=== PATIENT | male | born 1955 | race Caucasian/White ===

== ENCOUNTER 2022-04-18 08:43 | Outpatient (REF) | payer MEDICARE, MEDICAID, SELFPAY ==
--- NOTE | ~2022-04-18 | CT_ITS ---
EXAMINATION: CT ABDOMEN AND PELVIS WITHOUT AND WITH CONTRAST CLINICAL INFORMATION: Hematuria. COMPARISON: None. TECHNIQUE: Multidetector volumetric imaging was performed of the abdomen and pelvis before and after the IV administration of 85 mL of Omnipaque 300 intravenous contrast. Sagittal and coronal reformatted images were obtained on the technologist's workstation. This CT examination was performed using dose optimization techniques as appropriate, variously including the following: *Automated exposure control *Adjustment of mA and/or kV according to patient size (this includes techniques or standardized protocols for targeted exams where dose is matched to indication/reason for exam; i.e. extremities or head) *Use of iterative reconstruction technique DLP: 874 mGy-cm. FINDINGS: LUNG BASES: There is plate-like atelectasis right lung base. LIVER, GALLBLADDER, AND BILIARY TREE: The liver is normal in size, shape, and diffuse hypoattenuation. There is a focal linear hypodensity right hepatic lobe extending caudate on sagittal image likely a dilated duct. No focal hepatic lesion or biliary ductal dilatation is present. The gallbladder is unremarkable with no evidence of radiopaque gallstones, gallbladder wall thickening, or obvious pericholecystic inflammatory changes. PANCREAS: Unremarkable SPLEEN: Unremarkable ADRENAL GLANDS: Unremarkable KIDNEYS AND URETERS: The kidneys are normal in size, shape, and No hydronephrosis, hydroureter, or calculi seen. No perinephric stranding. There is a 1 cm nodule right adrenal gland. Precontrast lesion measures 1.60 HU and on postcontrast exam measures 69 HU. The lesion extends into periureteral diverticulum The left adrenal gland is unremarkable. BLADDER: There is mass left bladder wall with thick wall calcification. Precontrast, this measures 36 Hounsfield units and postcontrast measures 62 HU. It measures 4.6 x 3.5 x 4.5 cm. The uterine and the diverticulum does not opacify likely obstructive from the tumor. Excreted urinary contrast is visualized in the bladder. The left distal ureter is at the inferior edge of the bladder mass but no obstruction or dilatation of distal ureter seen. GASTROINTESTINAL TRACT: There is scattered stool stool, gas seen in colon without distention. There are postsurgical changes ascending colon with anastomotic ileocolic segment showing minimal mural thickening but patent lumen. The rest of the colon and the small bowel loops are normal caliber. The stomach is nondistended. No free fluid or inflammatory process seen. ABDOMINAL WALL: No significant hernia is appreciated. LYMPH NODES: Normal. VASCULAR: Unremarkable. PELVIC VISCERA: No abnormal pelvic or inguinal lymph nodes seen. There is no free fluid. OSSEOUS STRUCTURES: There are degenerative disc changes with vacuum disc phenomena L5-S1 disc level with ventral spondylosis. CT/CT abdomen pelvis wo/w IV con IMPRESSION: 1. Left bladder wall mass with thick wall calcification. The left distal ureter is at the inferior edge of the bladder mass but no obstruction seen. There is left periureteral diverticulum with mass extending into the diverticulum and obstructing the diverticulum. 2. There is no abnormal pelvic or inguinal lymphadenopathy. 3. Postsurgical changes ascending colon with patent anastomotic segment. However, there is mild mural thickening. 4. Right adrenal enhancing nodule, suspicious. 5. Hepatic steatosis without focal lesion. Fleischner guidelines were followed.
[2022-04-18] MEDS: iohexoL 350 MG/ML 100 ML INFUS..BTL IV (09:40)
[2022-04-18 14:53] LABS: Creatinine POC 0.7 mg/dL (0.5-1.4); GFR POC > 60
== END 2022-04-18 08:44 | disposition home or self-care (01) ==
LOC: HO.CT 08:43
PROVIDERS: PCP Nurse Practitioner Family; Visit Provider Nurse Practitioner Family
DX: R31.9 Hematuria, unspecified (principal)
CPT/HCPCS: 74178; 82565; Q9967

== ENCOUNTER → 2022-04-26 10:05 | Outpatient (BNVA) | payer MEDICARE, SELFPAY | PROVIDERS: PCP Nurse Practitioner Family; Visit Provider Internal Medicine Endocrinology, Diabetes & Metabolism | DX: E27.8 Other specified disorders of adrenal gland (principal) | CPT/HCPCS: 99202 ==

== ENCOUNTER 2022-04-26 11:59 | Outpatient (REF) | payer MEDICARE, SELFPAY ==
[2022-04-27 21:38] LABS: DHEA Sulfate 198 mcg/dL (20-217)
[2022-05-01 12:13] LABS: Metanephrine, Free 86 pg/mL (<=57); Normetanephrines, Free 130 pg/mL (<=148); Total Metanephrine, Free 216 pg/mL (<=205)
== END 2022-04-26 12:00 | disposition home or self-care (01) ==
LOC: HO.10HDL 11:59
PROVIDERS: Visit Provider Internal Medicine Endocrinology, Diabetes & Metabolism
DX: E27.8 Other specified disorders of adrenal gland (principal)
CPT/HCPCS: 36415; 82627; 83835

== ENCOUNTER 2022-05-02 12:15 | Outpatient (REF) | payer MEDICARE, SELFPAY ==
[2022-05-02 14:42] LABS: Alanine Aminotransferase 46 U/L (0-40); Albumin Level 4.3 g/dL (3.5-5.0); Alkaline Phosphatase 74 U/L (39-117); Anion Gap 12 (12-20); Aspartate Amino Transferase 32 U/L (5-37); Bilirubin Total 1.4 mg/dL (0.0-1.0); Blood Urea Nitrogen 21 mg/dL (9-16); Calcium 9.2 mg/dL (8.4-10.2); Carbon Dioxide 23 mmol/L (22-29); Chloride 110 mmol/L (96-108); Estimated Glomerular Filt Rate > 60; Glucose Random 108 mg/dL (60-115); Potassium 4.7 mmol/L (3.3-5.1); Sodium 140 mmol/L (135-145); Total Protein 6.9 g/dL (6.5-8.0)
[2022-05-02 15:23] LABS: Cortisol Random 10.3 ug/dL
== END 2022-05-02 12:16 | disposition home or self-care (01) ==
LOC: HO.HMGCLDS 12:15
PROVIDERS: Absent Provider Internal Medicine Endocrinology, Diabetes & Metabolism; Visit Provider Nurse Practitioner Family
DX: I26.99 Other pulmonary embolism without acute cor pulmonale (principal); E27.8 Other specified disorders of adrenal gland; R31.9 Hematuria, unspecified
CPT/HCPCS: 36415; 80053; 82533

== ENCOUNTER 2022-05-03 08:20 | Outpatient (REF) | payer MEDICARE, SELFPAY ==
[2022-05-03 12:30] LABS: Cortisol Random 5.5 ug/dL
[2022-05-09 20:23] LABS: Dexamethasone 174 ng/dL
== END 2022-05-03 08:21 | disposition home or self-care (01) ==
LOC: HO.HMGCLDS 08:20
PROVIDERS: PCP Nurse Practitioner Family; Visit Provider Internal Medicine Endocrinology, Diabetes & Metabolism
DX: E27.8 Other specified disorders of adrenal gland (principal); Z79.899 Other long term (current) drug therapy
CPT/HCPCS: 36415; 80299; 82533

== ENCOUNTER 2022-05-04 08:45 | Outpatient (REF) | payer MEDICARE, SELFPAY ==
[2022-05-04 12:30] LABS: Total Volume 24 Hour Urine 2550 mL
[2022-05-04 12:31] LABS: Creatinine, 24Hr Urine 1.6 G/Day (1.0-2.0); Creatinine, mg/dL 62.34
[2022-05-15 07:08] LABS: Total Volume 24U 2550
[2022-05-15 07:09] LABS: Metanephrine, Free 24U 244
[2022-05-15 07:11] LABS: Normetanephrine, Free 24U 350
[2022-05-15 07:12] LABS: Total Metanephrine, Free 24U 594
== END 2022-05-04 08:46 | disposition home or self-care (01) ==
LOC: HO.HMGCLDS 08:45
PROVIDERS: PCP Nurse Practitioner Family; Visit Provider Internal Medicine Endocrinology, Diabetes & Metabolism
DX: E27.8 Other specified disorders of adrenal gland (principal)
CPT/HCPCS: 82570; 83835

== ENCOUNTER 2022-05-04 14:33 | Outpatient (REF) | payer MEDICARE, MEDICAID, SELFPAY ==
--- NOTE | ~2022-05-04 | CT_ITS ---
EXAMINATION: CT ANGIOGRAM OF THE CHEST WITH CONTRAST (CT PULMONARY ANGIOGRAM FOR PE) CLINICAL INFORMATION: Reason for Exam I26.99 - Other pulmonary embolism without acute cor pulmonale COMPARISON: No pertinent prior studies are available for comparison. TECHNIQUE: Prior to contrast administration, noncontrast localization images were obtained. Subsequently, multidetector volumetric imaging was performed from the thoracic inlet to below the diaphragms following the administration of 130 mL Omnipaque 350 intravenous contrast. No contrast reaction reported. Sagittal, coronal, and MIP oblique sagittal reformatted images were obtained on the CT workstation, uploaded to PACS, and reviewed. This CT examination was performed using dose optimization techniques as appropriate, variously including the following: *Automated exposure control *Adjustment of mA and/or kV according to patient size (this includes techniques or standardized protocols for targeted exams where dose is matched to indication/reason for exam; i.e. extremities or head) *Use of iterative reconstruction technique Note that the initial contrast bolus was considered suboptimal, resulting in a second IV injection for the CT angiography examination. DLP: Total exam dose-length product 464 mGy-cm FINDINGS: LUNGS AND PLEURA: Trachea and central airways are widely patent and normal in caliber. Bronchial cavanaugh are mildly diffusely thickened. Mild centrilobular and paraseptal emphysema. No evidence of any suspicious lung nodule, mass or pleural effusion. No pneumothorax. QUALITY OF STUDY/CONTRAST BOLUS: Satisfactory. CARDIOVASCULAR: The pulmonary arteries are normal in size. No embolic filling defects are identified within the main, lobar or segmental vessels. The heart size is normal. No pericardial effusion. No inward bowing of the interventricular septum. Mild atherosclerosis of the thoracic aorta without aneurysm or dissection. MEDIASTINUM/LOWER NECK: No mediastinal mass. The esophagus and thyroid gland are unremarkable. LYMPHATICS: No pathologic sized axillary, hilar or mediastinal lymph nodes. UPPER ABDOMEN: No contrast reflux into the inferior vena cava. No acute findings in the visualized upper abdomen. Mild nodular thickening of right adrenal gland, 1 cm transverse dimension (image 57, series 5), probably an adrenal adenoma. It has attenuation of 50 Hounsfield units on the contrast-enhanced images. If deemed appropriate, follow-up in one year with adrenal washout CT examination, and if stable after follow-up in one year, then no further follow-up imaging would be recommended. OSSEOUS STRUCTURES: Discectomy and anterior spinal fusion at C6-C7. No acute abnormalities in the degenerated thoracic spine. No suspicious bone lesions. CT/CT angio chest PE protocol IMPRESSION: * No evidence of pulmonary embolism. * Mild pulmonary emphysema. * Probable small adenoma of the right adrenal gland.
[2022-05-04] MEDS: iohexoL 350 MG/ML 100 ML INFUS..BTL 130 ML IV (15:58)
== END 2022-05-04 14:34 | disposition home or self-care (01) ==
LOC: HO.CT 14:33
PROVIDERS: PCP Nurse Practitioner Family; Visit Provider Nurse Practitioner Family
DX: I26.99 Other pulmonary embolism without acute cor pulmonale (principal); R31.9 Hematuria, unspecified; E27.8 Other specified disorders of adrenal gland
CPT/HCPCS: 71275; Q9967

== ENCOUNTER 2022-05-19 12:56 | Outpatient (REF) | payer MEDICARE, SELFPAY | END 2022-05-19 12:57 | disposition home or self-care (01) | LOC: HO.LAB 12:56 | PROVIDERS: PCP Nurse Practitioner Family; Visit Provider Internal Medicine Endocrinology, Diabetes & Metabolism | DX: Z13.89 Encounter for screening for other disorder (principal) ==

== ENCOUNTER 2022-05-20 09:26 | Outpatient (REF) | payer MEDICARE, SELFPAY ==
[2022-05-25 14:13] LABS: Adrenocorticotropic Hormone 23 pg/mL (6-50)
== END 2022-05-20 09:27 | disposition home or self-care (01) ==
LOC: HO.LAB 09:26
PROVIDERS: PCP Nurse Practitioner Family; Visit Provider Internal Medicine Endocrinology, Diabetes & Metabolism
DX: E27.8 Other specified disorders of adrenal gland (principal)
CPT/HCPCS: 36415; 82024; 82530

== ENCOUNTER → 2022-07-17 11:57 | Outpatient (BNVA) | payer MEDICARE, SELFPAY | PROVIDERS: PCP Nurse Practitioner Family; Referring Provider Nurse Practitioner Family; Visit Provider Nurse Practitioner Family | DX: Z12.11 Encounter for screening for malignant neoplasm of colon (principal); K58.2 Mixed irritable bowel syndrome | CPT/HCPCS: 99202 ==

== ENCOUNTER → 2022-07-26 11:09 | Outpatient (BNVA) | payer MEDICARE, MEDICAID, SELFPAY | PROVIDERS: PCP Nurse Practitioner Family; Visit Provider Internal Medicine Endocrinology, Diabetes & Metabolism | DX: E27.8 Other specified disorders of adrenal gland (principal) | CPT/HCPCS: 99212 ==

== ENCOUNTER 2022-08-07 16:24 | Outpatient (REF) | payer MEDICARE, MEDICAID, SELFPAY | END 2022-08-07 16:25 | disposition home or self-care (01) | LOC: HO.LAB 16:24 | PROVIDERS: PCP Nurse Practitioner Family; Visit Provider Internal Medicine Endocrinology, Diabetes & Metabolism | DX: Z13.89 Encounter for screening for other disorder (principal) ==

== ENCOUNTER 2022-08-08 | Outpatient (REF) | payer MEDICARE, MEDICAID, SELFPAY ==
[2022-08-20 17:08] LABS: Saliva Cortisol 0.05 mcg/dL
== END 2022-08-08 00:01 | disposition home or self-care (01) ==
LOC: HO.LNP
PROVIDERS: Visit Provider Internal Medicine Endocrinology, Diabetes & Metabolism
DX: E27.8 Other specified disorders of adrenal gland (principal)
CPT/HCPCS: 82530

== ENCOUNTER 2022-08-09 10:00 | Outpatient (REF) | payer MEDICARE, MEDICAID, SELFPAY ==
--- NOTE | ~2022-08-09 | CT_ITS ---
EXAMINATION: CT ABDOMEN WITHOUT AND WITH CONTRAST CLINICAL INFORMATION: Other specified disorders of adrenal gland. Please perform with adrenal protocol washout. COMPARISON: Previous chest CTA and abdominal and pelvic CT April 2022 TECHNIQUE: Contiguous axial thin section helical images of the abdomen were performed before and after the administration of oral contrast and 85 mL of Omnipaque 350 intravenous contrast. The data set was reformatted in the coronal and sagittal planes and reviewed on an independent workstation. This CT examination was performed using dose optimization techniques as appropriate, variously including the following: *Automated exposure control *Adjustment of mA and/or kV according to patient size (this includes techniques or standardized protocols for targeted exams where dose is matched to indication/reason for exam; i.e. extremities or head) *Use of iterative reconstruction technique DLP: 459 mGy-cm FINDINGS: LUNG BASES: New clustered right middle lobe nodules largest measuring 3 mm axial image 1 series 7. Appearance is suggestive of tree-in-bud appearance or airways. LIVER, GALLBLADDER, AND BILIARY TREE: Fatty infiltration of the liver. Stable linear branching low attenuation in the right lobe of the liver again questionable for focal intrahepatic biliary duct dilatation. The liver is otherwise normal. The gallbladder is normal. PANCREAS: Normal SPLEEN: Normal. Small splenule. ADRENAL GLANDS AND KIDNEYS: There is a 1 x 1.8 cm right adrenal nodule. Hounsfield units precontrast measure 10. Hounsfield units immediately post contrast measure 95. Delayed Hounsfield units following IV contrast measure 34. Percentage and relative washout is 64%. Percentage enhancement washout is 80%. This is suggestive of a adrenal adenoma. There is slight nodular thickening of the posterior limb of the left adrenal gland. Small bilateral renal stones. The kidneys are otherwise normal. BOWEL LOOPS: Postsurgical changes from right hemicolectomy. LYMPH NODES: There are small cardiophrenic angle lymph nodes that are stable. Small stable precaval and periportal lymph nodes.. No enlarged lymph nodes. VASCULAR: Unremarkable. BONES: Mild degenerative changes of the spine. CT/CT abdomen wo/w IV con IMPRESSION: 1 x 1.8 cm right adrenal nodule. Washout characteristics are suggestive of a benign adenoma. Slight nodular thickening of the posterior limb of the left adrenal gland. Other stable abdominal findings as described above. New clustered right middle lobe nodules suggestive of tree-in-bud appearance or airways disease. Fleischner guidelines were followed.
[2022-08-09] MEDS: iohexoL 350 MG/ML 100 ML INFUS..BTL IV (11:01)
[2022-08-09 11:25] LABS: MANUAL DIFF FLAG NO
[2022-08-09 12:15] LABS: Basophils Absolute Auto 0.1 X10*3/uL (0.0-0.2); Basophils Percent Auto 0.9 % (0-2); Eosinophils Absolute Auto 0.2 X10*3/uL (0.0-0.4); Hematocrit 48.2 % (42.0-52.0); Imm Gran Abs Auto 0.04 X10*3/uL (0.00-0.03); Imm Gran Pct Auto 0.7 % (0.0-0.4); Lymphocytes Absolute Auto 1.6 X10*3/uL (1.2-4.9); Lymphocytes Percent Auto 28.9 % (20-40); Mean Corpuscular HGB Conc 33.2 g/dl (31.0-36.0); Mean Corpuscular Volume 90.4 fL (80.0-98.0); Mean Platelet Volume 9.4 fL (9.4-12.4); Monocytes Absolute Auto 0.5 X10*3/uL (0.1-1.2); Monocytes Percent Auto 8.3 % (2-11); Neutrophils Absolute Auto 3.3 x10*3/uL (2.0-8.3); Neutrophils Percent Auto 58.2 % (45-73); Platelet Count 183 X10*3/uL (160-400); Red Blood Count 5.33 X10*6/uL (4.60-5.80); Red Cell Distribution Width 13.4 % (11.0-16.0); White Blood Count 5.7 X10*3/uL (4.8-10.8)
[2022-08-09 12:23] LABS: GFR POC 60
[2022-08-09 12:33] LABS: Creatinine, mg/dL 128.48
[2022-08-09 12:51] LABS: Alanine Aminotransferase 63 U/L (0-40); Albumin Level 4.2 g/dL (3.5-5.0); Alkaline Phosphatase 70 U/L (39-117); Anion Gap 12 (12-20); Aspartate Amino Transferase 40 U/L (5-37); Blood Urea Nitrogen 16 mg/dL (9-16); Calcium 9.1 mg/dL (8.4-10.2); Carbon Dioxide 26 mmol/L (22-29); Chloride 107 mmol/L (96-108); Cholesterol 91 mg/dL; Estimated Glomerular Filt Rate > 60; Glucose Fasting 85 mg/dL (60-99); HDL Cholesterol 40 mg/dL; LDL Cholesterol Calculated 43 mg/dl; Potassium 4.5 mmol/L (3.3-5.1); Sodium 140 mmol/L (135-145); Total Protein 6.5 g/dL (6.5-8.0); Triglycerides 43 mg/dL
[2022-08-09 12:56] LABS: Creatinine, 24Hr Urine 1.5 G/Day (1.0-2.0); Total Volume 24 Hour Urine 1175 mL
[2022-08-09 13:08] LABS: Prostate Specific Antigen Scr 0.26 ng/mL (<0.05-4.0); TSH reflex Free T4 1.73 uIU/mL (0.32-4.0)
[2022-08-09 13:14] LABS: Appearance Urine Clear; Color Urine Yellow; Glucose Urine UA Negative (Negative); Leukocyte Esterase Urine Negative (Negative); Nitrite Urine Negative (Negative); Specific Gravity - Urine >= 1.030 (1.005-1.025); UMIC TRIGGER UACC YES; Urine Blood Small (1+) (Negative); Urine Ketones Negative (Negative); Urine Protein Negative (Neg-Trace)
[2022-08-09 13:27] LABS: Bacteria Urine None Seen (None Seen); Hyaline Casts Urine 0-2 /LPF (0-2); Squamous Epithelial Cell Urine 0-2 /HPF (0-2); WBC Urine 0-5 /HPF (0-5)
[2022-08-18 08:34] LABS: Cortisol Free, 24 Hr Urine 40.8 mcg/24 h (4.0-50.0); Creatinine, 24 Hr Urine 1.47 g/24 h (0.50-2.15); Total Volume, 24 Hr Urine 1175 mL
== END 2022-08-09 10:01 | disposition home or self-care (01) ==
LOC: HO.CT 10:00
PROVIDERS: PCP Nurse Practitioner Family; Visit Provider Internal Medicine Endocrinology, Diabetes & Metabolism
DX: Z00.00 Encounter for general adult medical examination without abnormal findings (principal); Z12.5 Encounter for screening for malignant neoplasm of prostate; E27.8 Other specified disorders of adrenal gland; E78.5 Hyperlipidemia, unspecified; R53.83 Other fatigue
CPT/HCPCS: 36415; 74170; 80053; 80061; 81001; 81003; 82530; 82565; 82570; 84153; 84443; 85025; Q9967

== ENCOUNTER → 2022-08-22 09:42 | Outpatient (BNVA) | payer MEDICARE, MEDICAID, SELFPAY | PROVIDERS: PCP Nurse Practitioner Family; Visit Provider Nurse Practitioner Family | DX: Z12.11 Encounter for screening for malignant neoplasm of colon (principal) | CPT/HCPCS: 99212 ==

== ENCOUNTER 2022-08-22 11:17 | Outpatient (REF) | payer MEDICARE, MEDICAID, SELFPAY ==
--- NOTE | ~2022-08-22 | XR_ITS ---
EXAMINATION: XR CHEST CLINICAL INFORMATION: Shortness of breath COMPARISON: None available. TECHNIQUE: 2 views of the chest were obtained. FINDINGS: No significant abnormality is noted involving the heart, lungs, mediastinum, bony thorax or soft tissues. XR/XR chest 2V IMPRESSION: Unremarkable chest examination.
== END 2022-08-22 11:18 | disposition home or self-care (01) ==
LOC: HO.HMGCX 11:17
PROVIDERS: PCP Nurse Practitioner Family; Visit Provider Nurse Practitioner Family
DX: Z01.818 Encounter for other preprocedural examination (principal); R06.02 Shortness of breath
CPT/HCPCS: 71046

== ENCOUNTER 2022-08-31 06:54 | Day surgery (SDC) | payer MEDICARE, MEDICAID, SELFPAY ==
[2022-08-29 15:48] VITALS: BMI 29.6
--- NOTE | 2022-08-30 12:36 | P.CONAN_ITS ---
HPI - Anesthesia Eval Consult details Narrative: 67yo M for Colonoscopy PMFSH Active Problems Active Problems: All Active Problems (Updated 08/20/22 @ 17:47 by Isaiah Trevino, [facility]) Shortness of breath (Acute) Elevated bilirubin (Acute) Dermatitis (Acute) Physical exam (Acute) Screening for colon cancer (Acute) History of rectal polypectomy (Acute) Mass of right adrenal gland (Acute) Hematuria (Acute) Pulmonary embolism (Acute) Past Medical History Medical History (Updated 08/30/22 @ 12:37 by Lety Dorsey NP) Mass of right adrenal gland Pulmonary embolism Family History Family History Mother Dementia Father Throat cancer Surgical History Surgical History H/O transurethral resection of bladder tumor (TURBT) History of esophagogastroduodenoscopy (EGD) History of intestinal surgery History of rectal polypectomy History of surgery of head Hx of appendectomy Hx of colonoscopy Hx of fusion of cervical spine Hx of hernia repair Hx of shoulder surgery Social History Social History Alcohol intake: current Alcohol intake frequency: other Alcohol type: beer and wine Patient Tobacco Use Status: Former Tobacco user Tobacco use type: Cigarette Years Smoked: > 17 yrs Substance Use Type: Marijuana Meds Allergies Allergy/AdvReac Type Severity Reaction Status Date / Time codeine Allergy Severe Unknown Verified 08/22/22 09:47 morphine Allergy sweats, Verified 08/22/22 09:47 vomiting Exam Exam Date and Time: August 30, 2022 1236 Height,Weight and Vital Signs: Height 5 ft 9 in Weight 90.999 kg Pertinent Lab Results Pertinent Lab Results: Laboratory Tests 08/09/22 08/09/22 11:24 11:24 WBC 5.7 Hgb 16.0 Hct 48.2 Plt Count 183 Sodium 140 Potassium 4.5 Chloride 107 Carbon Dioxide 26 BUN 16 Creatinine 1.09 Assessment and Plan Assessment Anesthesia Assessment: Chart Reviewed
[2022-08-31 07:55] VITALS: BMI 29.5
[2022-08-31 07:57] VITALS: BP 129/81; PULSE 82; RESP 16; TEMP 36.3; O2SAT 100
[2022-08-31] MEDS: Lactated Ringers 1,000 ML 100 ML IVCONT (08:16)
--- NOTE | 2022-08-31 08:22 | P.CONAN_ITS ---
[facility] Active Problems Active Problems: All Active Problems (Updated 08/30/22 @ 12:37 by Lety Dorsey NP) Hematuria (Acute) Screening for colon cancer (Acute) Physical exam (Acute) Dermatitis (Acute) Elevated bilirubin (Acute) Shortness of breath (Acute) History of rectal polypectomy (Acute) Past Medical History Medical History Mass of right adrenal gland Pulmonary embolism Family History Family History Mother Dementia Father Throat cancer Family history of problems with anesthesia: No Surgical History Surgical History H/O transurethral resection of bladder tumor (TURBT) History of esophagogastroduodenoscopy (EGD) History of intestinal surgery History of rectal polypectomy History of surgery of head Hx of appendectomy Hx of colonoscopy Hx of fusion of cervical spine Hx of hernia repair Hx of shoulder surgery History of Problems with Anesthesia: No Social History Social History Alcohol intake: current Alcohol intake frequency: former alcohol drinker Alcohol type: beer and wine Patient Tobacco Use Status: Former Tobacco user Quit Date: 2005 Tobacco use type: Cigarette Years Smoked: > 17 yrs Smoked in Last 30 Days: No Use of substances other than those prescribed or required for medical reasons: Yes Substance Use Type: Marijuana Substance Use Frequency: Occasionally Are you DNR?: No Advance Directives: No Advance Directives Information Provided: Yes Meds Allergies Allergy/AdvReac Type Severity Reaction Status Date / Time codeine Allergy Severe COLD SWEATS Verified 08/31/22 07:53 morphine Allergy Severe COLD SWEATS Verified 08/31/22 07:53 Active Medications: Current Medications Lactated Ringer's (Lr) 1,000 mls @ 100 mls/hr IVCONT .Q10H TEJAS Last Admin: 08/31/22 08:16 Dose: 100 mls/hr Ondansetron HCl (Ondansetron Hcl 4 Mg/2 Ml Vial) 4 mg IVPUSH ONCE PRN PRN Reason: Nausea and Vomiting Home Medications Medication Instructions Recorded Confirmed Last Taken Type aripiprazole 5 mg tablet 5 mg PO DAILY 08/31/22 08/31/22 Unknown History escitalopram oxalate 5 mg tablet 5 mg PO DAILY 08/31/22 08/31/22 Unknown History Exam Exam Date and Time: August 31, 2022 0822 Height,Weight and Vital Signs: Height 5 ft 9 in Weight 90.718 kg Last Vital Signs Temp 97.4 F 08/31/22 07:57 Pulse 82 08/31/22 07:57 Resp 16 08/31/22 07:57 BP 129/81 08/31/22 07:57 Pulse Ox 100 08/31/22 07:57 O2 Del Method Room Air 08/31/22 07:57 Airway Mallampati Class: I TM Dist: >3cm Neck ROM: Full Denture: Upper and Lower Heart: rrr Lungs: clear Assessment and Plan Final Anesthetic Review Family History of Problems with Anesthesia: No History of Problems with Anesthesia: No NPO: Yes ASA Class: III Final Preanesthetic Review: No Changes in Pt Med Stat, Meds/Allgs Chart Reviewed, Consent Obtained/Reviewed and Anes Risks/Benef Reviewed Patient Risk: Intermediate Procedure Risk: Low Anesthetic Plan Anesthetic Plan: MAC: Disposition: Standard PACU
--- NOTE | 2022-08-31 09:01 | MHC.SHP ---
Pre-Procedural Eval Section A Date of Service: 08/31/22 Section B Chief Complaint: Screening Relevant Family History (Specify if Yes): No Relevant Social History: Other (specify) (THC) Present Medications: see Short Stay Collaborative assessment Medical History: Significant History (Mass of right adrenal gland Pulmonary embolism) History of Previous Operations: Relevant previous surgery/procedure and date(s) (H/O transurethral resection of bladder tumor (TURBT) History of esophagogastroduodenoscopy (EGD) History of intestinal surgery History of rectal polypectomy History of surgery of head Hx of appendectomy Hx of colonoscopy Hx of fusion of cervical spine Hx of hernia repair Hx of shoulder surgery) Allergies: Allergies Allergy/AdvReac Type Severity Reaction Status Date / Time codeine Allergy Severe COLD SWEATS Verified 08/31/22 07:53 morphine Allergy Severe COLD SWEATS Verified 08/31/22 07:53 Review of Systems Sugical H&P ROS: Negative: Constitution, Cardiovascular, Respiratory, Neurological, Psychiatric, Hem-Onc, Allergic/Immunologic, Gastrointestinal, Genitourinary, Musculoskeletal, Integumentary, Endocrine and Eyes/Ears/Nose/Throat Exam Surgical H&P Exam: Normal: HEENT, Normal: Heart, Normal: Lungs, Normal: Extremities, Normal: Abdomen, Normal: Skin and Normal: Neurological Plan Diagnosis/Plan: Unchanged I have reviewed the history and physical and performed a pertinent physical examination on my patient. No changes have occurred unless specified. Time Spent With Patient Time: Total time managing care of this patient today ____ minutes.
--- NOTE | 2022-08-31 09:03 | P.OP_ITS ---
Operative Note Operative Note Date of Service: 08/31/22 Narrative: Operative Information Procedure Description: Colonoscopy Indication: screening Anesthesia: MAC COLONOSCOPY Instrument: Olympus variable stiffness pediatric scope 190L Colonoscopy Monitoring: Vital signs and clinical assessment, continuous EKG monitoring, Pulse oximetry, Carbon Dioxide monitoring and blood pressure monitoring were done throughout the procedure. Colon withdrawal time was 14 minutes. Procedure: The patient was placed in the left lateral decubitis position and pre-procedure medications were administered. After a digital rectal examination of the ano-rectum, the video colonoscope was inserted into the rectum and advanced through the colon to the ileocolonic anastomosis The colonoscope was slowly withdrawn in a retrograde panoramic fashion and the colon mucosa was carefully examined including a retroflexed view of the rectum. Findings and interventions are described below. Procedure Difficulty: easy Findings: ileo-colonic anasotmosis noted. Ascending Colon: x1 sessile polyp 9-10 mm removed with cold snare and 5-7 mm removed with cold snare Transverse Colon -normal Descending Colon: 10 mm sessile polyp removed with cold snare Sigmoid Colon: normal Rectum: Retroflexion with small internal hemorrhoids, grade I, x 2 sessile polyps 4-6 mm removed with cold forceps Anorectum - normal Colon preparation: Montgomery Bowel Preparation Scale Right colon; 2 Transverse colon: 2 Left colon; 2 (0 = Unprepared colon segment with mucosa not seen due to solid stool that cannot be cleared. 1 = Portion of mucosa of the colon segment seen, but other areas of the colon segment not well seen due to staining, residual stool and/or opaque liquid. 2 = Minor amount of residual staining, small fragments of stool and/or opaque liquid, but mucosa of colon segment seen well. 3 = Entire mucosa of colon segment seen well with no residual staining, small fragments of stool or opaque liquid) Impression and Post Procedure Diagnosis: polyps internal hemorrhoids Plan: High fiber diet leaflet Avoid straining at stool, epsom salts and sitz bath, anusol supps or cream Repeat Colonoscopy in 2-3 years due to polyps or earlier if clinically indicated Above findings were reviewed with the patient and relevant handouts were provided if indicated.
[2022-08-31 09:43] VITALS: BP 95/61; PULSE 64; RESP 20; TEMP 36.3; O2SAT 94
[2022-08-31 09:58] VITALS: BP 107/78; PULSE 65; RESP 16; TEMP 36.6; O2SAT 99
== END 2022-08-31 10:30 | disposition home or self-care (01) ==
PROVIDERS: PCP Nurse Practitioner Family; Visit Provider Internal Medicine Gastroenterology
PROC: 0DJD8ZZ Inspection of Lower Intestinal Tract, Via Natural or Artificial Opening Endoscopic (ICD-10-PCS; CPT 45378; principal; 2022-08-31 09:00)
DX: Z12.11 Encounter for screening for malignant neoplasm of colon (principal); Z86.010 Personal history of colon polyps; D12.2 Benign neoplasm of ascending colon; D12.4 Benign neoplasm of descending colon; K62.1 Rectal polyp; K64.0 First degree hemorrhoids; Z98.0 Intestinal bypass and anastomosis status; Z86.711 Personal history of pulmonary embolism; Z98.890 Other specified postprocedural states; Z79.899 Other long term (current) drug therapy; Z79.51 Long term (current) use of inhaled steroids; Z88.8 Allergy status to other drugs, medicaments and biological substances; F12.90 Cannabis use, unspecified, uncomplicated; Z87.891 Personal history of nicotine dependence
CPT/HCPCS: 45385; 45380; 88305

== ENCOUNTER → 2022-09-25 13:19 | Outpatient (BNVA) | payer MEDICARE, SELFPAY | PROVIDERS: PCP Nurse Practitioner Family; Visit Provider Nurse Practitioner Family | DX: D36.9 Benign neoplasm, unspecified site (principal); R14.0 Abdominal distension (gaseous) | CPT/HCPCS: 99212 ==

== ENCOUNTER 2022-10-27 07:26 | Outpatient (REF) | payer MEDICARE, SELFPAY ==
--- NOTE | ~2022-10-27 | CT_ITS ---
EXAMINATION: CT CHEST WITHOUT CONTRAST CLINICAL INFORMATION: Follow-up new pulmonary nodule seen on abdominal pelvic CT scan COMPARISON: Previous chest CT April 2022, chest x-ray August [address] July 2022 TECHNIQUE: Multidetector volumetric CT imaging of the chest was done. Axial MIP volume rendering provided. Sagittal and coronal reformatted images were obtained. This CT examination was performed using dose optimization techniques as appropriate, variously including the following: *Automated exposure control *Adjustment of mA and/or kV according to patient size (this includes techniques or standardized protocols for targeted exams where dose is matched to indication/reason for exam; i.e. extremities or head) *Use of iterative reconstruction technique DLP: 187 mGy-cm FINDINGS: LUNGS: Mild paraseptal emphysema. Clustered new small 1 to 2 mm peribronchial I lateral upper lobe nodules and bronchial wall thickening, right greater than left. Increasing clustered peribronchial right middle lobe nodules. Largest nodule measures 7 x 13 mm axial image 342 series 5. Increasing subsegmental atelectasis in the lingula axial image 332 series 5. MEDIASTINUM: The visualized thyroid gland is normal. There are small mediastinal and bilateral hilar lymph nodes that are stable. No enlarged lymph nodes. Normal heart size. No pericardial effusion. Small right cardiophrenic angle or anterior diaphragmatic lymph nodes similar to previous exam. CORONARY ARTERY CALCIFICATION: None visualized on this study. PLEURA: There is no pleural effusion. No pleural mass or thickening. AXILLA: No lymphadenopathy. UPPER ABDOMEN: Fatty liver OSSEOUS STRUCTURES: Degenerative changes of the spine. CT/CT chest wo IV con IMPRESSION: Increasing clustered peribronchial nodules greatest in the right middle lobe. Largest pulmonary nodule measures 7 x 13 mm. This probably represents an infectious or inflammatory process. Short-term chest CT follow-up in several months following antibiotic treatment recommended. If finding persists on follow-up chest CT, PET/CT scan or tissue sampling would be recommended. Mild emphysema. Fleischner guidelines were followed.
== END 2022-10-27 07:27 | disposition home or self-care (01) ==
LOC: HO.CT 07:26
PROVIDERS: Visit Provider Nurse Practitioner Family
DX: R91.8 Other nonspecific abnormal finding of lung field (principal)
CPT/HCPCS: 71250

== ENCOUNTER 2022-12-04 08:19 | Outpatient (AMB) | payer MEDICARE, SELFPAY ==
--- NOTE | 2022-12-04 08:31 | A.OFFPC_ITS ---
Vital Signs 12/04/22 08:32 Height 5 ft 9 in Weight 207 lb 8 oz BMI 30.6 BP 120/78 Blood Pressure Location Lt brachial Position Sitting Pulse 74 Pulse Source Pulse Oximeter Pulse Oximetry (%) 96 Oxygen Delivery Method Room Air Intake Visit Reasons: 6 month follow up Allergies codeine Allergy (Severe, Verified 12/04/22 08:34) COLD SWEATS morphine Allergy (Severe, Verified 12/04/22 08:34) COLD SWEATS Tobacco use date assessed: 12/04/22 Fall risk assessment: No Falls in past year Last assessed Fall Risk: 12/04/22 Dental Screening Dental Screen Date: 12/04/22 Did you have a dental visit in the last 12 months?: No Did you have a dental problem in the last 6 months where you did not have access to dental care?: No Was dental information given to patient?: No HPI 6 month follow up HPI Details Hx of bladder cancer. Pt is following up with urology. Will order labs. Denies fever, chills, and hematuria. Pt is also following up with thoracic surgery. [facility] Medical History Mass of right adrenal gland Pulmonary embolism Tubular adenoma Surgical History H/O transurethral resection of bladder tumor (TURBT) History of esophagogastroduodenoscopy (EGD) History of intestinal surgery History of rectal polypectomy History of surgery of head Hx of appendectomy Hx of colonoscopy Hx of fusion of cervical spine Hx of hernia repair Hx of shoulder surgery Family History Mother Dementia Father Throat cancer Social History Housing: Apartment Alcohol intake: current Alcohol intake frequency: former alcohol drinker Alcohol type: beer and wine Patient Tobacco Use Status: Former Tobacco user Quit Date: 2005 Tobacco use type: Cigarette Years Smoked: > 17 yrs e-Cigarette/Vaping Use: Never Used Substance Use Type: Marijuana Current occupational status: retired Cognitive needs: No Hearing needs: No Vision needs: No Questionnaire Thrive Questionnaire Date Thrive assessed: 06/07/22 JUNIOR-7 AMB Questionnaire JUNIOR-7 Date JUNIOR - 7 assessed: 06/07/22 Source: Developed by Drs. Zhen Taylor, Precious Pate, Ruddy Metcalf and colleagues, with an educational nikkie from [employer]. Review of Systems Const Reports as per HPI Physical exam (Primary Care) Vital Signs: Last Vital Signs Pulse 74 12/04/22 08:32 BP 120/78 12/04/22 08:32 Pulse Ox 96 12/04/22 08:32 Oxygen Delivery Method Room Air 12/04/22 08:32 BMI result Body Mass Index 30.6 Tobacco/Smoking Status: Tobacco use Status Tobacco use date assessed 12/04/22 12/04/22 08:38 Patient Tobacco Use Status Former Tobacco user 12/04/22 08:38 Tobacco use type Cigarette 12/04/22 08:38 e-Cigarette/Vaping Use Never Used 12/04/22 08:38 Thrive Assessment: Date of Thrive Assessment Date Thrive assessed 06/07/22 12/04/22 08:38 Const General: cooperative Orientation/consciousness: patient oriented x3 Neuro General: patient oriented x3 Psych Appearance: grossly normal Mental Status: mental status grossly normal Speech and movement: Normal speech and movement present Affect: normal affect Attitude: cooperative Thought process: Normal thought process present Thought content: Normal thought content present Insight: Good insight present (Psych) Judgement: Good judgement present (Psych) Assessment and Plan Assessment & Plan (1) Bladder cancer: Code(s): C67.9 - Malignant neoplasm of bladder, unspecified Plan: Labs ordered, sees urology Plan The patient agreed to the use of a nuclear medicine medical director for this encounter. Scribed for JASWINDER Wood- by Arabella Miles nuclear medicine medical director, on 12/04/2022 at 08:45 EST. Orders: Orders Comprehensive [place]. Panel Fast Today C67.9 - Malignant neoplasm of bladder, unspecified Lipid Panel Today C67.9 - Malignant neoplasm of bladder, unspecified TSH reflex Free T4 Today C67.9 - Malignant neoplasm of bladder, unspecified Complete Blood Count Auto Diff Today C67.9 - Malignant neoplasm of bladder, unspecified UA CC w/rflx Micro + Cult Today C67.9 - Malignant neoplasm of bladder, unspecified Coding Level of Care Code Est Pt Level 3 (70013) Diagnoses Bladder cancer C67.9
[2022-12-04 08:32] VITALS: BP 120/78; PULSE 74; O2SAT 96; BMI 30.6
== END 2022-12-04 09:13 | disposition home or self-care (01) ==
PROVIDERS: PCP Nurse Practitioner Family; Visit Provider Nurse Practitioner Family
DX: C67.9 Malignant neoplasm of bladder, unspecified (principal)
CPT/HCPCS: 99213

== ENCOUNTER 2022-12-08 10:12 | Outpatient (AMB) | payer MEDICARE, SELFPAY ==
--- NOTE | 2022-12-08 10:32 | MHC.OFFVIS ---
Intake Vital Signs 12/08/22 10:41 Height 5 ft 9 in Weight 205 lb 0.478 oz BMI 30.3 BP 130/70 Blood Pressure Location Lt brachial Position Sitting Pulse 62 Pulse Oximetry (%) 97 Intake Visit Reasons: Abnormal CT scan Allergies codeine Allergy (Severe, Verified 12/08/22 10:34) COLD SWEATS morphine Allergy (Severe, Verified 12/08/22 10:34) COLD SWEATS Medication List - Last Reconciled 12/08/22 by Cirilo Mcmahon MD aripiprazole 5 mg PO DAILY escitalopram oxalate 5 mg PO DAILY fluticasone propionate 50 mcg/actuation 2 sprays intranasal DAILY omeprazole 20 mg PO DAILY simethicone 125 mg PO BID-QID PRN HPI Abnormal CT scan HPI Details 67-year-old male former smoker quit in 2005 but smoked 2 packs per day starting at age 11 up until that point who had a CT scan done for his kidneys and on the upper cuts there was a nodule noted on the right long so this quite appropriately was carried through with a noncontrast chest CT scan done on 10/27/2022. This was reviewed interpreted by me directly and shows a irregular shaped pulmonary nodule or cluster of pulmonary nodules in the right middle lobe. There is no lymphadenopathy no pleural fluid. Looking back he does also have a CTA of the chest on 05/04/2022 which shows no nodules at all. He reports feeling generally good health denies unintentional weight loss decreased appetite fevers chills or soaking sweats. He denied chest pain cough or hemoptysis. Does report some shortness of breath with activity. He does report reflux and frequent burping. He denies any new neurologic symptoms. Other than above, 12 point review of systems was done and documented separately in the office chart with detailed social and family history. [facility] Medical History (Updated 12/04/22 @ 15:42 by Joanna Dodge PA-C) History of pulmonary embolism (~02/2022) Mass of right adrenal gland Personal history of nicotine dependence Tubular adenoma of colon Surgical History (Updated 12/04/22 @ 15:42 by Joanna Dodge PA-C) History of appendectomy History of colon surgery History of colonoscopy History of esophagogastroduodenoscopy (EGD) History of fusion of cervical spine History of hernia repair History of rectal polypectomy History of shoulder surgery History of surgery of head History of transurethral resection of bladder tumor (TURBT) Family History Mother Dementia Father Throat cancer Social History Housing: Apartment Alcohol intake: current Alcohol intake frequency: former alcohol drinker Alcohol type: beer and wine Patient Tobacco Use Status: Former Tobacco user Quit Date: 2005 Tobacco use type: Cigarette Years Smoked: > 17 yrs e-Cigarette/Vaping Use: Never Used Substance Use Type: Marijuana Current occupational status: retired Cognitive needs: No Hearing needs: No Vision needs: No Physical Exam Vital Signs: Last Vital Signs Pulse 62 12/08/22 10:41 BP 130/70 12/08/22 10:41 Pulse Ox 97 12/08/22 10:41 BMI result Body Mass Index 30.3 General: No acute distress HEENT: Moist mucous membranes, normocephalic, pupils equal round and reactive to light. Neck: No thyromegaly, supple, no JVD Lymph: No cervical, supraclavicular, or other lymphadenopathy Chest: No chest wall abnormalities or deformities Heart: Regular rate and rhythm Lungs: Clear to auscultation bilaterally Abdomen: Soft, nontender, normal bowel sounds Extremities: No edema, cyanosis, or clubbing. Full range of motion Neuro: Grossly intact, alert and oriented x3, and nonfocal Skin: Warm and dry no rashes Affect: Normal Assessment & Plan Assessment & Plan (1) Pulmonary nodules: Code(s): R91.8 - Other nonspecific abnormal finding of lung field Plan: 67-year-old man former smoker with a cluster of pulmonary nodules in the right middle lobe found incidentally on a CT scan. I did spend some time explaining the CT scan to him and his fiancee who is with him today as described above. I also discussed pulmonary nodules in general and how their size, shape, and globe changer time affect her level of suspicion for malignancy. This does have an inflammatory type is shape to it and given that there was nothing there on previous CT scan just about 7 months ago I think this is less likely to be a malignancy. I did discuss options of continued observation versus needle biopsy versus surgery but I think the most reasonable option is for continued observation with a 3 month follow-up CT scan of the chest. As he has no signs of infection at the moment I do not think it is necessary to start any antibiotics at this time. All questions were answered. Orders: Orders CT chest wo IV con 3 Months R91.8 - Other nonspecific abnormal finding of lung field Coding Level of Care Code New Pt Level 4 (66195) Diagnoses Pulmonary nodules R91.8
[2022-12-08 10:41] VITALS: BP 130/70; PULSE 62; O2SAT 97; BMI 30.3
== END 2022-12-08 11:03 | disposition home or self-care (01) ==
PROVIDERS: PCP Nurse Practitioner Family; Visit Provider Surgery
DX: R91.8 Other nonspecific abnormal finding of lung field (principal)

== ENCOUNTER → 2022-12-08 10:12 | Outpatient (BNVA) | payer MEDICARE, SELFPAY | PROVIDERS: PCP Nurse Practitioner Family; Visit Provider Surgery | DX: R91.8 Other nonspecific abnormal finding of lung field (principal); Z87.891 Personal history of nicotine dependence | CPT/HCPCS: 99202 ==

== ENCOUNTER 2022-12-27 15:32 | Outpatient (AMB) | payer MEDICARE, SELFPAY ==
--- NOTE | 2022-12-27 15:40 | A.OFFPC_ITS ---
Vital Signs 12/27/22 15:41 Height 5 ft 9 in Weight 208 lb BMI 30.7 BP 130/84 Blood Pressure Location Lt brachial Position Sitting Pulse 77 Pulse Source Pulse Oximeter Pulse Oximetry (%) 96 Oxygen Delivery Method Room Air Intake Visit Reasons: Neck problem Intake Note: pt is here for neck pain that started about 3-4 days ago pt says by the end of the day he can not lift his arm over his head Allergies codeine Allergy (Severe, Verified 12/27/22 15:44) COLD SWEATS morphine Allergy (Severe, Verified 12/27/22 15:44) COLD SWEATS Medication List - Last Reconciled 12/27/22 by JASWINDER Rosenthal-IMER aripiprazole 5 mg PO DAILY escitalopram oxalate 5 mg PO DAILY fluticasone propionate 50 mcg/actuation 2 sprays intranasal DAILY omeprazole 20 mg PO DAILY simethicone 125 mg PO BID-QID PRN Tobacco use date assessed: 12/27/22 Fall risk assessment: 1 Fall in past year Last assessed Fall Risk: 12/27/22 Dental Screening Dental Screen Date: 12/27/22 Did you have a dental visit in the last 12 months?: No Did you have a dental problem in the last 6 months where you did not have access to dental care?: No Was dental information given to patient?: No HPI Neck problem HPI Details Pt reports cervical neck pain. He has a hx of a fusion approximately 25 + years ago. Will order xr and refer to PT. Denies fever, chills, and dizziness. radiculopathy down LUE (intermittent) [facility] Medical History (Updated 12/27/22 @ 16:07 by JASWINDER Rosenthal-IMER) Personal history of nicotine dependence History of pulmonary embolism (~02/2022) Tubular adenoma of colon Mass of right adrenal gland Surgical History History of colon surgery History of transurethral resection of bladder tumor (TURBT) History of hernia repair History of fusion of cervical spine History of colonoscopy History of appendectomy History of shoulder surgery History of esophagogastroduodenoscopy (EGD) History of rectal polypectomy History of surgery of head Family History Mother Dementia Father Throat cancer Social History Housing: Apartment Alcohol intake: current Alcohol intake frequency: former alcohol drinker Alcohol type: beer and wine Patient Tobacco Use Status: Former Tobacco user Quit Date: 2005 Tobacco use type: Cigarette Years Smoked: > 17 yrs e-Cigarette/Vaping Use: Never Used Substance Use Type: Marijuana Current occupational status: retired Cognitive needs: No Hearing needs: No Vision needs: No Questionnaire Thrive Questionnaire Date Thrive assessed: 06/07/22 JUNIOR-7 AMB Questionnaire JUNIOR-7 Date JUNIOR - 7 assessed: 06/07/22 Source: Developed by Drs. Zhen Taylor, Precious Pate, Ruddy Metcalf and colleagues, with an educational nikkie from [employer]. Review of Systems Const Reports as per HPI Physical exam (Primary Care) Vital Signs: Last Vital Signs Pulse 77 12/27/22 15:41 BP 130/84 12/27/22 15:41 Pulse Ox 96 12/27/22 15:41 Oxygen Delivery Method Room Air 12/27/22 15:41 BMI result Body Mass Index 30.7 Tobacco/Smoking Status: Tobacco use Status Tobacco use date assessed 12/27/22 12/27/22 15:47 Patient Tobacco Use Status Former Tobacco user 12/27/22 15:40 Tobacco use type Cigarette 12/27/22 15:40 e-Cigarette/Vaping Use Never Used 12/27/22 15:40 Thrive Assessment: Date of Thrive Assessment Date Thrive assessed 06/07/22 12/27/22 15:40 Const General: cooperative Orientation/consciousness: patient oriented x3 Back/Spine/Pelvis Other: limited ROM with turning head to the left, severe pain with radicular symptoms down LUE with chin raises, limited ROM with neck flexion bilat, - spurlings Neuro General: patient oriented x3 Psych Appearance: grossly normal Mental Status: mental status grossly normal Speech and movement: Normal speech and movement present Affect: normal affect Attitude: cooperative Thought process: Normal thought process present Thought content: Normal thought content present Insight: Good insight present (Psych) Judgement: Good judgement present (Psych) Assessment and Plan Assessment & Plan (1) Cervical neck pain with evidence of disc disease: Code(s): M50.90 - Cervical disc disorder, unspecified, unspecified cervical region Plan: XR ordered, referred to PT Plan The patient agreed to the use of a medical coding technician for this encounter. Scribed for HENRY Wood by Arabella Miles medical coding technician, on 12/27/2022 at 16:00 EST. Orders: Orders PT Evaluation and Treatment Today M50.90 - Cervical disc disorder, unspecified, unspecified cervical region XR cervical spine 2V Today M50.90 - Cervical disc disorder, unspecified, unspecified cervical region Coding Level of Care Code Est Pt Level 3 (84414) Diagnoses Cervical neck pain with evidence of disc disease M50.90
[2022-12-27 15:41] VITALS: BP 130/84; PULSE 77; O2SAT 96; BMI 30.7
== END 2022-12-27 16:24 | disposition home or self-care (01) ==
PROVIDERS: PCP Nurse Practitioner Family; Visit Provider Nurse Practitioner Family
DX: M50.90 Cervical disc disorder, unspecified, unspecified cervical region (principal)
CPT/HCPCS: 99213

== ENCOUNTER 2022-12-27 16:19 | Outpatient (REF) | payer MEDICARE, OTHER, SELFPAY ==
--- NOTE | ~2022-12-27 | XR_ITS ---
EXAMINATION: XR CERVICAL SPINE CLINICAL INFORMATION: Cervical disc disorder. COMPARISON: None available. TECHNIQUE: 4 views submitted. FINDINGS: Degenerative change most noted at C5-C6 and possible fusion at C6-C7. This could be congenital. C6-C7 poorly visualized. At C5-C6 there is anterior and posterior spurring. There appears to be mild grade 1 anterolisthesis of C4 on C5. Examination does demonstrate degenerative changes in the articulating facets in the [id number] cervical region bilaterally. No acute bony finding. XR/XR cervical spine 2V IMPRESSION: Degenerative changes as noted above and possible fusion at the level of C6-C7. There is mild anterolisthesis of C4 on C5 which could be degenerative in nature. Correlation recommended clinically. Consider MRI if indicated.
== END 2022-12-27 16:20 | disposition home or self-care (01) ==
LOC: HO.HMGCX 16:19
PROVIDERS: PCP Nurse Practitioner Family; Visit Provider Nurse Practitioner Family
DX: M50.90 Cervical disc disorder, unspecified, unspecified cervical region (principal)
CPT/HCPCS: 72040

== ENCOUNTER 2023-02-12 18:58 | Outpatient (REF) | payer MEDICARE, OTHER, SELFPAY ==
--- NOTE | ~2023-02-12 | MR_ITS ---
EXAMINATION: MR CERVICAL SPINE WITHOUT CONTRAST CLINICAL INFORMATION: Cervicalgia COMPARISON: Cervical radiographs 12/27/2022 TECHNIQUE: MRI of the cervical spine was obtained using routine sequences without contrast. FINDINGS: Motion degraded examination. Straightening of normal cervical lordosis. Grade 1 anterolisthesis of C4-C5, C7-T1, T1-T2, and T2-T3. Trace retrolisthesis of C5-C6. Cervical vertebral body heights are maintained. There is fusion of the C6 and C7 vertebral bodies. Degenerative endplate edema at C7-T1. No focal expansile/destructive osseous lesion. Probable subchondral cyst within the C5 vertebral body. Within the constraint of motion degradation, no definite cervical spinal cord signal abnormality. C2-C3: No significant spinal canal stenosis. Mild narrowing of left neural foramen secondary to facet arthropathy. C3-C4: No significant spinal canal stenosis. There is uncovertebral and facet arthropathy, greater on the right contributing to severe right and minimal left neural foraminal narrowing. C4-C5: Small posterior disc osteophyte complex without significant spinal canal stenosis. Uncovertebral and facet arthropathy with mild left neural foraminal stenosis. C5-C6: Posterior disc osteophyte complex indents the ventral thecal sac with mild spinal canal stenosis. Severe bilateral neural foraminal stenosis secondary to uncovertebral and facet arthropathy. C6-C7: Fusion of the congenital basis. The spinal canal and neural foramen are patent. C7-T1: No significant spinal canal or neural foraminal stenosis. Facet arthropathy. MR/MR cervical spine wo con IMPRESSION: Multilevel degenerative changes of the cervical spine without high-grade spinal canal stenosis. Severe bilateral neural foraminal stenosis at C5-C6. Fusion of the C6 and C7 vertebral bodies may be congenital.
== END 2023-02-12 18:59 | disposition home or self-care (01) ==
LOC: HO.MRI 18:58
PROVIDERS: PCP Nurse Practitioner Family; Visit Provider Nurse Practitioner Family
DX: M50.90 Cervical disc disorder, unspecified, unspecified cervical region (principal); R93.7 Abnormal findings on diagnostic imaging of other parts of musculoskeletal system; M43.12 Spondylolisthesis, cervical region
CPT/HCPCS: 72141

== ENCOUNTER 2023-04-19 10:59 | Outpatient (REF) | payer OTHER, SELFPAY ==
[2023-04-19 12:21] LABS: Alanine Aminotransferase 118 U/L (0-40); Albumin Level 4.5 g/dL (3.5-5.0); Alkaline Phosphatase 101 U/L (39-117); Anion Gap 13 (12-20); Aspartate Amino Transferase 85 U/L (5-37); Bilirubin Direct 0.4 mg/dL (0.0-0.5); Blood Urea Nitrogen 15 mg/dL (9-16); Calcium 9.3 mg/dL (8.4-10.2); Carbon Dioxide 28 mmol/L (22-29); Chloride 106 mmol/L (96-108); Cholesterol 99 mg/dL (<200); Estimated Glomerular Filt Rate > 60; Glucose Fasting 98 mg/dL (60-99); HDL Cholesterol 42 mg/dL (>40); LDL Cholesterol Calculated 46 mg/dL (<100); Potassium 4.4 mmol/L (3.3-5.1); Sodium 143 mmol/L (135-145); Total Protein 7.5 g/dL (6.5-8.0); Triglycerides 55 mg/dL (<150)
[2023-04-19 12:37] LABS: TSH reflex Free T4 1.92 uIU/mL (0.32-4.0)
== END 2023-04-19 11:00 | disposition home or self-care (01) ==
LOC: HO.LAB 10:59
PROVIDERS: Visit Provider Nurse Practitioner Family
DX: Z00.00 Encounter for general adult medical examination without abnormal findings (principal); R17 Unspecified jaundice; M79.89 Other specified soft tissue disorders; C67.9 Malignant neoplasm of bladder, unspecified
CPT/HCPCS: 36415; 80053; 80061; 81003; 82248; 83880; 84443; 85025; 85379

== ENCOUNTER 2023-04-30 12:47 | Outpatient (REF) | payer OTHER, SELFPAY ==
--- NOTE | ~2023-04-30 | US_ITS ---
EXAMINATION: US LOWER EXTREMITY VENOUS (REFLUX EXAM), BILATERAL CLINICAL INDICATION: leg swelling COMPARISON: None. TECHNIQUE: Color flow triplex imaging and compression Doppler was performed to evaluate both the deep and the superficial systems bilaterally. To evaluate the superficial system, the examination was performed in the upright position. Color-flow Doppler ultrasound and compression ultrasound were utilized. In addition, maneuvers were utilized to demonstrate reflux. FINDINGS: 1. DEEP VENOUS ULTRASOUND OF THE RIGHT LOWER EXTREMITY: Common Femoral Vein: Compressible, normal respiratory variation and augmented flow. Femoral Vein: Compressible, normal color flow and augmentation. Popliteal Vein: Compressible, normal augmentation. Deep Reflux: There is no evidence of reflux in the deep system in either the common femoral vein or the popliteal vein. There is no evidence of a Lock's cyst. 2. SUPERFICIAL ULTRASOUND WITH DOPPLER OF RIGHT LOWER EXTREMITY: GREAT SAPHENOUS VEIN: Saphenofemoral Junction: 0.7 cm; Reflux: 0 ms Proximal Thigh: 0.3 cm; Reflux: 0 ms Mid Thigh: 0.2 cm; Reflux: 0 ms Above Knee: 0.3 cm; Reflux: 0 ms At Knee: 0.2 cm; Reflux: 0 ms Below Knee: 0.2 cm; Reflux: 0 ms Mid Calf: 0.2 cm; Reflux: 0 ms Ankle: 0.3 cm; Reflux: 0 ms DUPLICATED MEDIAL GREAT SAPHENOUS VEIN: Diameter: None Imaged Reflux: NA DUPLICATED LATERAL GREAT SAPHENOUS VEIN: Diameter: 0.2 cm Reflux: none SMALL SAPHENOUS VEIN: Proximal: 0.2 cm; Reflux: 0 ms Distal: 0.2 cm; Reflux: 0 ms VEIN OF GIACOMINI: None Imaged. PERFORATORS: Location: None Imaged Size: NA Reflux: NA VARICOSITIES: Location: None Imaged Size: NA Reflux: NA 3. DEEP VENOUS ULTRASOUND OF THE LEFT LOWER EXTREMITY: Common Femoral Vein: There is 668 ms of reflux Femoral Vein: Compressible, normal color flow and augmentation. Popliteal Vein: Compressible, normal augmentation. Deep Reflux: There is no evidence of reflux in the deep system in either the common femoral vein or the popliteal vein. There is no evidence of a Lock's cyst. 4. SUPERFICIAL ULTRASOUND WITH DOPPLER OF LEFT LOWER EXTREMITY: GREAT SAPHENOUS VEIN: Saphenofemoral Junction: 0.7 cm; Reflux: 0 ms Proximal Thigh: 0.4 cm; Reflux: 0 ms Mid Thigh: 0.3 cm; Reflux: 0 ms Above Knee: 0.3 cm; Reflux: 2768 ms At Knee: 0.2 cm; Reflux: 0 ms Below Knee: 0.1 cm; Reflux: 0 ms Mid Calf: 0.2 cm; Reflux: 0 ms Ankle: 0.2 cm; Reflux: 0 ms DUPLICATED MEDIAL GREAT SAPHENOUS VEIN: Diameter: None Imaged Reflux: NA DUPLICATED LATERAL GREAT SAPHENOUS VEIN: Diameter: 0.3 cm proximally and 0.1 cm distally Reflux: none SMALL SAPHENOUS VEIN: Proximal: 0.4 cm; Reflux: 640 ms Distal: 0.2 cm; Reflux: 0 ms VEIN OF GIACOMINI: None Imaged. PERFORATORS: Location: Left mid thigh Size: 0.2 Reflux: 0 Location: left calf proximal Size: 0.3 Reflux: 0 Location: left calf distally Size: 0.2 Reflux: 0 Location: left calf distally Size: 0.2 Reflux: 0 VARICOSITIES: Location: left thigh proximally Size: 0.4 Reflux: 0 Location: left thigh at knee Size: 0.3 Reflux: 0 US/US venous duplex LE BI IMPRESSION: 1. No evidence of deep venous thrombosis. 2. There is reflux in the left great saphenous vein [id number] of 2768 ms, diameter 0.3 cm. 3. There is reflux in the left small saphenous vein proximally. 4. Reflux in the left CFV of 668 ms. 5. Left lower extremity perforators and varicosities with no reflux.
== END 2023-04-30 12:48 | disposition home or self-care (01) ==
LOC: HO.US 12:47
PROVIDERS: PCP Nurse Practitioner Family; Visit Provider Nurse Practitioner Family
DX: M79.89 Other specified soft tissue disorders (principal)
CPT/HCPCS: 93970

== ENCOUNTER → 2023-05-08 09:52 | Outpatient (REF) | payer OTHER, SELFPAY ==
--- NOTE | 2023-05-08 09:56 | CA_ITS ---
Transthoracic Echocardiogram Patient (Last, First, Middle): Xavier Baptiste, Gender: Male Date of : 1955 Age: 68 Procedure Date: 05/08/2023 Procedure Type: Transthoracic Echocardiogram Location: OP Height: 177.8 cm Weight: 94.8 kg BSA: 2.13 m2 Heart Rate: bpm BP: 148 / 70 mmHg Rug Cleaner Helper: NAHUN Referring MD: Isaiah Trevino BLOOD BANK ATTENDANT- Symptoms: M79.89 - Other specified soft tissue disorders Study Quality: Adequate, contrast ECG Rhythm: Sinus Conclusions: - The left ventricular systolic function is low normal. The visually estimated ejection fraction is between 50-55%. - No obvious valvular pathology seen on this study. Findings Procedure Information Contrast agent, definity, is being given per protocol with complications as noted. The patient experienced back pain from contrast. Left Ventricle Normal left ventricular cavity size. The left ventricular systolic function is low normal. The visually estimated ejection fraction is between 50-55%. There is no evidence of regional wall motion abnormalities. Diastolic function is normal for age. There is mild septal asymmetric hypertrophy. Right Ventricle Mildly increased right ventricular cavity size. There is normal right ventricular systolic function. Atria Both atria are normal in size. Aortic Valve There is a normal trileaflet aortic valve. There is mild calcification of the aortic valve. There is no aortic valve stenosis. There is trace (trivial) aortic valve regurgitation. Mitral Valve The mitral valve appears normal. There is no mitral valve regurgitation. There is no mitral valve stenosis. Pulmonic Valve The pulmonic valve is likely normal. Tricuspid Valve There is trace tricuspid valve regurgitation. There is no evidence of pulmonary hypertension. Great Vessels The asc aorta is normal in size. Venous The inferior vena cava is normal in size and collapses greater than 50% with inspiration. Pericardium/Pleural There is no evidence of pericardial effusion. Prior Study Comparison No prior study available for comparison. Recommendations, Care & Conclusions No obvious valvular pathology seen on this study. Measurements 2D Linear Measurements IVSd: 1.07 0.6-0.9/0.6-1.0 cm LVIDd: 4.67 3.9-5.3/4.2-5.9 cm LVIDd Index: 2.19 2.4-3.2/2.2-3.1 cm/m2 LVIDs: 3.46 2.0-3.6 cm LVPWd: 0.78 0.7-1.1 cm LA Diam: 3.60 2.7-3.8/3.0-4.0 cm LAIDs Index: 1.69 1.5-2.3 cm/m2 LV Mass: 182.86 67-162/88-224 g LV Mass Index: 85.85 43-95/49-115 g/m2 LVOT Diam: 2.40 3.0+(-)1.3 cm 2D Systolic Function EF 4C: 59.70 >55% EF 2C: 54.30 >55% EF BiP: 55.70 >55% Mitral Valve MV Pk E: 0.57 MV PK A: 0.49 MV Decel Time: 232.00 E/A: 1.20 E'Lateral: 8.79 E'Medial: 4.95 E/E' Med: 11.50 E/E' Lat: 6.50 PHT: 68.00 MVA PHT: 3.24 Decel Gentry: 2.46 Aortic Valve AoV Pk Ryan: 1.02 AoV Mn Ryan: 0.74 AoV VTI: 0.27 AoV Pk Grad: 4.00 Aov Mn Grad: 2.00 NERY Cont.VTI: 3.14 LVOT LVOT Pk Ryan: 0.70 LVOT Mn Ryan: 0.42 LVOT VTI: 0.19 LVOT Pk Grad: 2.00 LVOT Mn Grad: 1.00 LVOT Diam: 2.40 LVOT Area: 4.52 Diastolic Function MV Pk E: 0.57 MV Pk A: 0.49 E/A: 1.20 E'Medial: 4.95 E/E' Med: 11.50 E' Laterial: 8.79 E/E' Lat: 6.50 Right Ventricle TAPSE (mm): 20.30 TVS' Ryan: 13.40 Tricuspid Valve TR Pk Ryan: 2.24 TR Pk Grad: 20.00 RA Press: 3.00 RVSP: 23.00 Great Vessels Aorta Sinus of Valsalva: 3.71 2.0-3.[address] Ridge: 3.07 1.7-3.4 cm Ao Asc: 3.80 2.1-3.4 cm Updated in Other Vendor System with Status of Final Brijesh Forman MD electronically signed on 05/09/2023 9:47:51 AM with status of Final
== END ==
LOC: HO.CARD 09:52
PROVIDERS: PCP Nurse Practitioner Family; Visit Provider Nurse Practitioner Family
DX: M79.89 Other specified soft tissue disorders (principal)
CPT/HCPCS: 93306; Q9957

== ENCOUNTER → 2023-05-08 09:56 | Outpatient (BNV) | payer OTHER, SELFPAY | PROVIDERS: PCP Nurse Practitioner Family; Visit Provider Internal Medicine | DX: I35.8 Other nonrheumatic aortic valve disorders (principal) | CPT/HCPCS: 93306 ==

== ENCOUNTER 2023-06-12 10:20 | Outpatient (AMB) | payer OTHER, SELFPAY ==
[2023-06-12 10:35] VITALS: BMI 30.7
--- NOTE | 2023-06-12 10:35 | A.OFFVIS_ITS ---
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 Pt states it started a few weeks ago and his skin is getting tight and itchy, pt has been scratching. Pt had some dermatology procedures on the Right LE. Pt states that he has clear fluid draining from wounds. 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 He had these raised ulcerations on the pretibial surface. It appears that he has seen 2 different hematology nurse educator. It has been treated with phototherapy along with some topical creams which do sound like steroid creams. Has had minimal improvement. He presents for follow-up evaluation with us regarding venous disease. He does have occasional swelling. He now presents to us with follow-up with noninvasive testing. [facility] Medical History Personal history of nicotine dependence History of pulmonary embolism (~02/2022) Tubular adenoma of colon Mass of right adrenal gland Surgical History History of colon surgery History of transurethral resection of bladder tumor (TURBT) History of hernia repair History of fusion of cervical spine History of colonoscopy History of appendectomy History of shoulder surgery History of esophagogastroduodenoscopy (EGD) History of rectal polypectomy History of surgery of head Family History Mother Dementia Father Throat cancer Social History Housing: Apartment Alcohol intake: current Alcohol intake frequency: former alcohol drinker Alcohol type: beer and wine Patient Tobacco Use Status: Former Tobacco user Quit Date: 2005 Tobacco use type: Cigarette Years Smoked: > 17 yrs e-Cigarette/Vaping Use: Never Used Substance Use Type: Marijuana Current occupational status: retired Cognitive needs: No Hearing needs: No Vision needs: No Review of Systems Const All systems reviewed & are unremarkable except as noted in HPI and below Reports no additional complaints ENT Reports Normal hearing present Card Denies chest pain, Denies chest pain at rest, Denies chest pain with activity and Denies pedal edema Resp Denies cough GI Denies abdominal pain Musc Denies abnormal gait, Denies muscle cramps and Denies radiating pain into limb Skin/Breast Denies skin ulcer and Denies wounds Neuro Reports Normal hearing present and Denies abnormal gait Psych Reports no additional complaints Physical Exam Vital Signs: BMI result Body Mass Index 30.7 Const General: cooperative, healthy appearing and comfortable Orientation/consciousness: oriented to person, oriented to place and oriented to time HEENT Head: Yes normal to inspection Neck Neck: Yes normal visual inspection Carotids: no bruits Chest Chest palpation & inspection: normal inspection of the chest Resp Effort & Inspection: normal respiratory effort and able to speak in complete s entences Auscultation: clear to auscultation bilaterally, no crackles, no rales, no rhonchi and no wheezes Cardio Rate: regular rate Rhythm: regular rhythm Heart sounds: S1 normal heart sound present and S2 normal heart sound present Bruits: no carotid bruits Peripheral pulses: Peripheral pulses 2+ throughout GI Inspection: Yes normal to inspection Skin Other: Right pretibial raised ulcerations Wounds: no wounds Hair: normal Neuro General: oriented to person, oriented to place and oriented to time Cranial nerves: Yes CN's II-XII intact bilaterally and Yes Normal hearing present Cognition (Neuro): normal cognition Motor exam (neuro): 5/5 motor strength present throughout Extrem Other: venous exam: +1 edema General: No clubbing, No cyanosis and Yes edema Psych Appearance: grossly normal Mental Status: mental status grossly normal Speech and movement: Normal speech and movement present Results Reviewed Results Reviewed: Brief summary of venous insufficiency testing is as follows: right great saphenous vein: negative right small saphenous vein: negative right accessory vein: none present left great saphenous vein: negative left small saphenous vein: negative left accessory vein: none present Please note there is no evidence of any venous aneurysms or significant tortuosity Assessment & Plan Assessment & Plan (1) Ulcer of right leg: Code(s): L97.919 - Non-pressure chronic ulcer of unspecified part of right lower leg with unspecified severity Qualifiers: Non-pressure ulcer stage: unspecified non-pressure ulcer stage Qualified Code(s): L97.919 - Non-pressure chronic ulcer of unspecified part of right lower leg with unspecified severity Plan: In short patient has these right pretibial wounds. It does not appear to be vascular in nature as he does have palpable pulses in venous insufficiency testing was essentially negative. We did suggest that he continue to follow up with Dermatology. He will follow up with us on an as-needed basis. Thank you for allowing us to assist in his care. If there are any questions or concerns please do not hesitate to contact us. Coding Level of Care Code Est Pt Level 4 (49216) Diagnoses Ulcer of right lower extremity, unspecified ulcer stage L97.919 Non-pressure ulcer stage: unspecified non-pressure ulcer stage
== END 2023-06-12 10:53 | disposition home or self-care (01) ==
PROVIDERS: PCP Nurse Practitioner Family; Visit Provider Surgery Vascular Surgery
DX: L97.919 Non-pressure chronic ulcer of unspecified part of right lower leg with unspecified severity (principal)
CPT/HCPCS: 99203

== ENCOUNTER → 2023-06-12 10:20 | Outpatient (BNVA) | payer OTHER, SELFPAY | PROVIDERS: PCP Nurse Practitioner Family; Visit Provider Surgery Vascular Surgery | DX: L97.919 Non-pressure chronic ulcer of unspecified part of right lower leg with unspecified severity (principal) | CPT/HCPCS: 99202 ==

== ENCOUNTER 2023-07-16 11:25 | Outpatient (AMB) | payer OTHER, SELFPAY ==
--- NOTE | 2023-07-16 11:29 | MHC.PC.OV ---
Vital Signs 07/16/23 11:32 Weight 210 lb BP 122/80 Blood Pressure Location Rt brachial Position Sitting Pulse 57 Pulse Source Pulse Oximeter Pulse Oximetry (%) 97 Oxygen Delivery Method Room Air Intake Visit Reasons: Annual Exam ( r/s from 06/11/23) Intake Note: Patient here for PE. pt would like to get a letter for housing stating he needs a bedroom w/a window. Colonoscopy: 09/05 due in 2-3 yrs Allergies codeine Allergy (Severe, Verified 07/16/23 11:33) COLD SWEATS morphine Allergy (Severe, Verified 07/16/23 11:33) COLD SWEATS perflutren Adverse Reaction (Verified 07/16/23 11:33) Back Pain Medication List - Last Reconciled 07/16/23 by HENRY Rosenthal aripiprazole 5 mg PO DAILY aspirin 81 mg PO DAILY escitalopram oxalate 5 mg PO DAILY fluticasone propionate 50 mcg/actuation 2 sprays intranasal DAILY gabapentin mg PO TID omeprazole 20 mg PO DAILY Tobacco use date assessed: 07/16/23 Fall risk assessment: No Falls in past year Last assessed Fall Risk: 07/16/23 Dental Screening Dental Screen Date: 07/16/23 Did you have a dental visit in the last 12 months?: No Did you have a dental problem in the last 6 months where you did not have access to dental care?: No Was dental information given to patient?: Patient has dentist HPI Annual Exam ( r/s from 06/11/23) HPI Details Pt is here for a PE. Will order labs. Colon screen is up to date. Due for PSA, will order. Denies dribbling with urination, weak stream, and frequent nocturia. Pt sees urology. Pt reports following up with thoracic for low-dose CTs. Pt reports increased coughing and mucus production in the morning. Recommended OTC cetirizine. Pt reports anxiety and difficulty breathing because he has no windows. Will write a letter with importance of having a bedroom with windows [facility] Medical History Personal history of nicotine dependence History of pulmonary embolism (~02/2022) Tubular adenoma of colon Mass of right adrenal gland Surgical History History of colon surgery History of transurethral resection of bladder tumor (TURBT) History of hernia repair History of fusion of cervical spine History of colonoscopy History of appendectomy History of shoulder surgery History of esophagogastroduodenoscopy (EGD) History of rectal polypectomy History of surgery of head Family History Mother Dementia Father Throat cancer Social History Housing: Apartment Alcohol intake: current Alcohol intake frequency: former alcohol drinker Alcohol type: beer and wine Patient Tobacco Use Status: Former Tobacco user Quit Date: 2005 Tobacco use type: Cigarette Years Smoked: > 17 yrs e-Cigarette/Vaping Use: Never Used Substance Use Type: Marijuana Current occupational status: retired Cognitive needs: No Hearing needs: No Vision needs: No Questionnaire PHQ-9 Over the last 2 weeks, how often have you been bothered by any of the following problems? Depression Screening [place]: [place] 70052 - PHQ-9 Billing: Patient declined-do not bill Source: Developed by Drs. Zhen Taylor, Precious Pate, Ruddy Metcalf and colleagues, with an educational nikkie from [employer]. Thrive Questionnaire Date Thrive assessed: 06/07/22 AUDIT C Alcohol Use Questionnaire (AUDIT-C) 1. How often do you have a drink containing alcohol?: Monthly or less 2. How many drinks containing alcohol do you have on a typical day when you are drinking?: 1 or 2 3. How often do you have six or more drinks on one occasion?: Never Total Score: 1 Score Reviewed/Action Taken: No JUNIOR-7 AMB Questionnaire JUNIOR-7 Date JUNIOR - 7 assessed: 06/07/22 Source: Developed by Drs. Zhen Taylor, Precious Pate, Ruddy Metcalf and colleagues, with an educational nikkie from [employer]. Review of Systems Const Denies chills and Denies fever(s) Eyes Denies blurry vision ENT Denies vertigo, Denies dizziness and Denies sore throat Card Denies chest pain at rest, Denies chest pain with activity, Denies diaphoresis, Denies dyspnea and Denies dyspnea on exertion Resp Denies cough, Denies dyspnea, Denies dyspnea on exertion and Denies wheezing GI Denies abdominal pain, Denies melena, Denies hematochezia, Denies constipation, Denies diarrhea and Denies loose stools Denies hematuria Musc Denies numbness and Denies tingling Skin/Breast Denies lesions Neuro Denies vertigo, Denies dizziness, Denies numbness and Denies tingling Psych Reports anxiety, Denies depression, Denies homicidal ideation, Denies suicidal ideation and Denies other (substance abuse) Aller/Immun Denies wheezing Physical exam (Primary Care) Vital Signs: Last Vital Signs Pulse 57 07/16/23 11:32 BP 122/80 07/16/23 11:32 Pulse Ox 97 07/16/23 11:32 Oxygen Delivery Method Room Air 07/16/23 11:32 Tobacco/Smoking Status: Tobacco use Status Tobacco use date assessed 07/16/23 07/16/23 11:36 Patient Tobacco Use Status Former Tobacco user 07/16/23 11:36 Tobacco use type Cigarette 07/16/23 11:36 e-Cigarette/Vaping Use Never Used 07/16/23 11:36 Thrive Assessment: Date of Thrive Assessment Date Thrive assessed 06/07/22 07/16/23 11:36 Const General: cooperative Nutritional Appearance: well nourished Orientation/consciousness: patient oriented x3 HENMT Head: Yes normal to inspection, Yes normocephalic and Yes atraumatic Ears: TM's normal bilaterally Eyes General: appearance normal, both eyes and all related structures Alignment and Position: alignment normal and position normal Neck Neck: Yes normal visual inspection and Yes no lymphadenopathy Thyroid: Thyroid normal Resp Effort & Inspection: normal respiratory effort Auscultation: clear to auscultation bilaterally Cardio Rate: regular rate Rhythm: regular rhythm Heart sounds: S1 normal heart sound present, S2 normal heart sound present and no murmurs GI Palpation (GI): Soft to palpation and nontender Auscultation: normal bowel sounds Male General Exam: Yes normal external exam Penis: normal penis Scrotum: scrotum normal, testes descended bilaterally and no inguinal hernias Testes: no testicular mass Skin Rashes: no rashes Neuro General: patient oriented x3, moves all extremities, no focal motor deficits and deep tendon reflexes 2+ bilaterally Romberg Test: Negative Psych Appearance: grossly normal Mental Status: mental status grossly normal Speech and movement: Normal speech and movement present Affect: normal affect Attitude: cooperative Thought process: Normal thought process present Thought content: Normal thought content present Insight: Good insight present (Psych) Judgement: Good judgement present (Psych) Assessment and Plan Assessment & Plan (1) Physical exam: Code(s): Z00.00 - Encounter for general adult medical examination without abnormal findings Plan: Labs ordered (2) Screening for prostate cancer: Code(s): Z12.5 - Encounter for screening for malignant neoplasm of prostate Plan: PSA ordered (3) Foot lesion: Code(s): L98.9 - Disorder of the skin and subcutaneous tissue, unspecified Plan: Referred to podiatry Plan The patient agreed to the use of a medical equipment technician for this encounter. Scribed for HENRY Wood by Arabella Miles medical equipment technician, on 07/16/2023 at 11:45 EST. Orders: Orders Comprehensive [place]. Panel Fast Today Z00.00 - Encounter for general adult medical examination without abnormal findings TSH reflex Free T4 Today Z00.00 - Encounter for general adult medical examination without abnormal findings Lipid Panel Today Z00.00 - Encounter for general adult medical examination without abnormal findings Prostate Specific Antigen Scr Today Z12.5 - Encounter for screening for malignant neoplasm of prostate Complete Blood Count Auto Diff Today Z00.00 - Encounter for general adult medical examination without abnormal findings UA CC w/rflx Micro + Cult Today Z00.00 - Encounter for general adult medical examination without abnormal findings Referrals Podiatry Referral L98.9 - Disorder of the skin and subcutaneous tissue, unspecified Coding Level of Care Code Est Pt Prev Care >65y(30262) Diagnoses Physical exam Z00.00 Screening for prostate cancer Z12.5 Foot lesion L98.9
[2023-07-16 11:32] VITALS: BP 122/80; PULSE 57; O2SAT 97
== END 2023-07-16 13:07 | disposition home or self-care (01) ==
PROVIDERS: PCP Nurse Practitioner Family; Visit Provider Nurse Practitioner Family
DX: Z00.00 Encounter for general adult medical examination without abnormal findings (principal); Z12.5 Encounter for screening for malignant neoplasm of prostate; L98.9 Disorder of the skin and subcutaneous tissue, unspecified
CPT/HCPCS: 99397

== ENCOUNTER 2023-09-04 10:41 | Outpatient (REF) | payer OTHER, SELFPAY ==
[2023-09-04 11:08] LABS: MANUAL DIFF FLAG NO
[2023-09-04 11:49] LABS: Appearance Urine Clear; Color Urine Yellow; Glucose Urine UA Negative (Negative); Leukocyte Esterase Urine Moderate (2+) (Negative); Nitrite Urine Negative (Negative); PH 6.5 (5.0-9.0); Specific Gravity - Urine <= 1.005 (1.005-1.025); UMIC TRIGGER UACC YES; Urine Blood Negative (Negative); Urine Ketones Negative (Negative); Urine Protein Negative (Neg-Trace)
[2023-09-04 11:50] LABS: Hematocrit 49.4 % (42.0-52.0); Hemoglobin 16.7 g/dl (14.0-18.0); Mean Corpuscular HGB Conc 33.8 g/dl (31.0-36.0); Mean Corpuscular Hemoglobin 31.5 pg (27.0-33.0); Red Blood Count 5.31 X10*6/uL (4.60-5.80); White Blood Count 6.3 X10*3/uL (4.8-10.8)
[2023-09-04 11:51] LABS: Basophils Absolute Auto 0.1 X10*3/uL (0.0-0.2); Basophils Percent Auto 0.9 % (0-2); Eosinophils Absolute Auto 0.1 X10*3/uL (0.0-0.4); Eosinophils Percent Auto 2.2 % (0-4); Imm Gran Abs Auto 0.04 X10*3/uL (0.00-0.03); Imm Gran Pct Auto 0.6 % (0.0-0.4); Lymphocytes Absolute Auto 1.7 X10*3/uL (1.2-4.9); Lymphocytes Percent Auto 27.2 % (20-40); Mean Platelet Volume 9.9 fL (9.4-12.4); Monocytes Absolute Auto 0.5 X10*3/uL (0.1-1.2); Monocytes Percent Auto 7.3 % (2-11); Neutrophils Absolute Auto 3.9 x10*3/uL (2.0-8.3); Neutrophils Percent Auto 61.8 % (45-73); Platelet Count 165 X10*3/uL (160-400)
[2023-09-04 11:52] LABS: Bacteria Urine 4+ (None Seen); Hyaline Casts Urine 0-2 /LPF (0-2); RBC Urine 0-2 /HPF (0-2); Squamous Epithelial Cell Urine 0-2 /HPF (0-2); UACC Culture Trigger YES
[2023-09-04 12:45] LABS: Alanine Aminotransferase 86 U/L (0-40); Albumin Level 4.3 g/dL (3.5-5.0); Alkaline Phosphatase 100 U/L (39-117); Anion Gap 17 (12-20); Aspartate Amino Transferase 89 U/L (5-37); Bilirubin Total 1.5 mg/dL (0.0-1.0); Blood Urea Nitrogen 14 mg/dL (9-16); Calcium 9.7 mg/dL (8.4-10.2); Carbon Dioxide 23 mmol/L (22-29); Chloride 107 mmol/L (96-108); Cholesterol 94 mg/dL (<200); Estimated Glomerular Filt Rate > 60; Glucose Fasting 107 mg/dL (60-99); HDL Cholesterol 38 mg/dL (>40); LDL Cholesterol Calculated 47 mg/dL (<100); Potassium 4.5 mmol/L (3.3-5.1); Sodium 142 mmol/L (135-145); Total Protein 7.5 g/dL (6.5-8.0); Triglycerides 46 mg/dL (<150)
[2023-09-04 12:47] LABS: TSH reflex Free T4 1.09 uIU/mL (0.32-4.0)
[2023-09-04 12:50] LABS: Prostate Specific Antigen Scr 0.27 ng/mL (<0.05-4.0)
== END 2023-09-04 10:42 | disposition home or self-care (01) ==
LOC: HO.LAB 10:41
PROVIDERS: PCP Nurse Practitioner Family; Visit Provider Nurse Practitioner Family
DX: Z00.00 Encounter for general adult medical examination without abnormal findings (principal); R82.90 Unspecified abnormal findings in urine; Z20.2 Contact with and (suspected) exposure to infections with a predominantly sexual mode of transmission; Z12.5 Encounter for screening for malignant neoplasm of prostate
CPT/HCPCS: 36415; 80053; 80061; 81001; 84153; 84443; 85025; 87086; 87088

== ENCOUNTER 2023-09-07 11:22 | Outpatient (AMB) | payer MEDICARE, SELFPAY ==
--- NOTE | 2023-09-07 11:32 | MHC.OFFVIS ---
Vital Signs 09/07/23 11:33 Height 5 ft 9 in Weight 208 lb BMI 30.7 BP 107/68 Blood Pressure Location Lt brachial Position Sitting Pulse 70 Intake Visit Reasons: Fatty Liver Intake Note: Patient follow up for fatty liver. Patient cc: abdominal discomfort, acid reflex, diarrhea, and denies any other GI issues. Osteopathy Doctor Required: No Accompanied by: Spouse Allergies codeine Allergy (Severe, Verified 09/07/23 11:32) COLD SWEATS morphine Allergy (Severe, Verified 09/07/23 11:32) COLD SWEATS perflutren Adverse Reaction (Verified 09/07/23 11:32) Back Pain HPI HPI Fatty Liver: Details: LAST VISIT Tubular adenoma Tubular adenoma found without high-grade dysplasia or carcinoma. Patient will need to repeat colonoscopy in 2 years, sooner if clinically necessary Postprandial abdominal bloating Patient reports abdominal bloating and feeling gassy. Will send a script for simethicone. Low FODMAP diet discussed with patient. List of food to avoid as well as list of food recommended given to patient. I will see him in 6 months, sooner on as needed basis. Patient is agreeable to this plan and verbalizes understanding of instructions. He was given the opportunity to ask questions and all questions answered. ? Thank you for allowing me to participate in his care Plan Medications New simethicone 125 mg PO BID-QID PRN 120 caps 3RF abdominal distention K21.9 - Gastro-esophageal reflux disease without esophagitis TODAY'S VISIT: Patient is here today referred by PCP for elevated bilirubin. History of transaminitis. Hep C over 30 years ago and treated. History of ETOH abuse in the past, sober for the last 8 years or so. Patient reports postprandial abdominal bloating. Reports that he will have occasional loose stools, however he feels like he is not going to the bathroom Gomez. Patient admits that he is constipated. Patient denies melena, hematochezia, unintentional weight loss or ribbon like stools. Had colonoscopy in August of 2022 and recommendation was made for patient to return for colorectal screening in 2-3 years. Patient denies any nausea or vomiting. Reports postprandial abdominal bloating. Patient states that he feels like he is bloated all the time. Left upper quadrant and left lower quadrant pain. Denies any dyspepsia, dysphagia or odynophagia. Currently patient is taking omeprazole and states that for the most part his symptoms of acid reflux are suppressed. Occasional epigastric pain and acid reflux depending on what he eats. [facility] Medical History (Updated 09/04/23 @ 17:04 by Isaiah Trevino, [facility]) Fatty liver Personal history of nicotine dependence History of pulmonary embolism (~02/2022) Tubular adenoma of colon Mass of right adrenal gland Surgical History History of colon surgery History of transurethral resection of bladder tumor (TURBT) History of hernia repair History of fusion of cervical spine History of colonoscopy History of appendectomy History of shoulder surgery History of esophagogastroduodenoscopy (EGD) History of rectal polypectomy History of surgery of head Family History Mother Dementia Father Throat cancer Social History Housing: Apartment Alcohol intake: current Alcohol intake frequency: former alcohol drinker Alcohol type: beer and wine Patient Tobacco Use Status: Former Tobacco user Quit Date: 2005 Tobacco use type: Cigarette Years Smoked: > 17 yrs e-Cigarette/Vaping Use: Never Used Substance Use Type: Marijuana Current occupational status: retired Cognitive needs: No Hearing needs: No Vision needs: No Review of Systems Const Denies weight gain and Denies weight loss ENT Reports no additional complaints, Denies dysphagia and Denies odynophagia Card Reports no additional complaints Resp Reports no additional complaints GI Reports abdominal pain, Denies belching, Denies melena, Reports bloating, Reports constipation, Denies dysphagia, Denies excessive flatus, Denies dyspepsia, Denies heartburn, Denies diarrhea, Reports loose stools, Denies nausea, Denies odynophagia and Denies vomiting Reports no additional complaints Musc Reports no additional complaints Neuro Reports no additional complaints Psych Reports no additional complaints Endo Reports no additional complaints Physical Exam Vital Signs: Last Vital Signs Pulse 70 09/07/23 11:33 BP 107/68 09/07/23 11:33 BMI result Body Mass Index 30.7 Const General: healthy appearing and no acute distress Nutritional Appearance: obese Orientation/consciousness: patient oriented x3 Resp Effort & Inspection: normal respiratory effort, able to speak in complete sentences, no tracheal deviation and symmetric chest movement Auscultation: clear to auscultation bilaterally Cardio Rate: regular rate GI Inspection: Yes normal to inspection, No distended and Yes obesity Palpation (GI): Soft to palpation, not firm, nontender and No hepatosplenomegaly present Auscultation: normal bowel sounds General: Yes no CVA tenderness Back/Spine/Pelvis Back: no CVA tenderness Skin General skin exam: elasticity normal, turgor normal and dry skin Neuro General: patient oriented x3 Psych Appearance: grossly normal Mental Status: mental status grossly normal Results Reviewed Results Reviewed: Laboratory Tests 09/04/23 11:06 Total Bilirubin 1.5 H AST 89 H ALT 86 H Assessment & Plan Assessment & Plan (1) Fatty liver: Code(s): K76.0 - Fatty (change of) liver, not elsewhere classified Category: Medical (2) Elevated bilirubin: Code(s): R17 - Unspecified jaundice Category: Medical (3) Transaminitis: Code(s): R74.01 - Elevation of levels of liver transaminase levels (4) GERD (gastroesophageal reflux disease): Code(s): K21.9 - Gastro-esophageal reflux disease without esophagitis Qualifiers: Esophagitis presence: esophagitis presence not specified Qualified Code(s): K21.9 - Gastro-esophageal reflux disease without esophagitis (5) Postprandial epigastric pain: Code(s): R10.13 - Epigastric pain (6) Postprandial abdominal bloating: Code(s): R14.0 - Abdominal distension (gaseous) (7) Abdominal distension (gaseous): Code(s): R14.0 - Abdominal distension (gaseous) Plan Transaminitis, elevated total bilirubin, most likely to patient's increased echogenicity of the liver and previous history of hep C. Will check direct bilirubin. Will check CRP, rule out autoimmune disorders. Will do complete ultrasound with liver elastography. Patient does admit to have left upper quadrant pain. Patient will start taking senna every evening to help her move his bowels better. Encouraged to lose weight, exercise. I will see patient in 2 months, sooner on as needed basis. Patient is agreeable to this plan and verbalizes understanding of instructions. He was given the opportunity to ask questions and all questions answered. Thank you for allowing me to participate in his care Orders: Orders Hepatitis A,B,C Profile Today R7.89 - Other specified abnormal findings of blood chemistry Hepatitis C Viral Load Today Z86.19 - Personal history of other infectious and parasitic diseases C Reactive Protein Today K58.9 - Irritable bowel syndrome without diarrhea Ceruloplasmin Today R7.89 - Other specified abnormal findings of blood chemistry Ferritin Today R74.8 - Abnormal levels of other serum enzymes Bilirubin Direct Today R17 - Unspecified jaundice Smooth Muscle Antibody Today R7. - Other specified abnormal findings of blood chemistry HIV Ab/Ag Today R7. - Other specified abnormal findings of blood chemistry Mitochondrial Antibody Today R7. - Other specified abnormal findings of blood chemistry Alpha Fetoprotein Today R7.89 - Other specified abnormal findings of blood chemistry US abdomen comp w elastography Today R7. - Other specified abnormal findings of blood chemistry Medications: New sennosides (Natural Senna Laxative) 17.2 mg (2 x 8.6 mg) PO BEDTIME 60 tabs 3RF constipation K59.00 - Constipation, unspecified Coding Level of Care Code Est Pt Level 4 (87934) Diagnoses Fatty liver K76.0 Elevated bilirubin R17 Transaminitis R74.01 Gastroesophageal reflux disease, unspecified whether esophagitis present K21.9 Esophagitis presence: esophagitis presence not specified Postprandial epigastric pain R10.13 Postprandial abdominal bloating R14.0 Abdominal distension (gaseous) R14.0 Time Spent (min) 40 Comment 25 minutes spent with patient and additional 15 minutes spent reviewing his records
[2023-09-07 11:33] VITALS: BP 107/68; PULSE 70; BMI 30.7
== END 2023-09-07 11:59 | disposition home or self-care (01) ==
PROVIDERS: PCP Nurse Practitioner Family; Visit Provider Nurse Practitioner Family
DX: K76.0 Fatty (change of) liver, not elsewhere classified (principal); R74.01 Elevation of levels of liver transaminase levels; K21.9 Gastro-esophageal reflux disease without esophagitis; R14.0 Abdominal distension (gaseous)
CPT/HCPCS: 99214

== ENCOUNTER 2023-09-07 11:22 | Outpatient (REF) | payer MEDICARE, SELFPAY ==
[2023-09-07 12:32] LABS: Retic HGB Equivalent 35.6 pg (30.0-35.0); Reticulocyte Percent 1.2 % (0.5-1.8)
[2023-09-07 12:42] LABS: Appearance Urine Cloudy; Color Urine Yellow; Glucose Urine UA Negative (Negative); Leukocyte Esterase Urine Moderate (2+) (Negative); Nitrite Urine Negative (Negative); UMIC TRIGGER UACC YES; Urine Blood Negative (Negative); Urine Ketones Trace mg/dL (Negative); Urine Protein Negative (Neg-Trace)
[2023-09-07 13:01] LABS: Bacteria Urine 4+ (None Seen); Hyaline Casts Urine 0-2 /LPF (0-2); RBC Urine 0-2 /HPF (0-2); Squamous Epithelial Cell Urine 0-2 /HPF (0-2); UACC Culture Trigger YES; WBC Urine 21-50 /HPF (0-5)
[2023-09-07 13:11] LABS: Bilirubin Direct 0.5 mg/dL (0.0-0.5); Bilirubin Total 0.9 mg/dL (0.0-1.0); C Reactive Protein 0.45 mg/dL (< or = 0.50); Lactate Dehydrogenase 200 U/L (118-273)
[2023-09-07 13:30] LABS: Ferritin 211 ng/mL (20-250)
[2023-09-08 04:46] LABS: HBS Num1 0.44 mIU/mL (0-7.99); HBc Num1 0.14 S/CO (0.00-0.79); HBsAGNum1 0.32 S/CO (0.00-0.99); HIV AB/AG Nonreactive (Nonreactive); HIV Num 1 0.08 S/CO (0.00-0.99); Hepatitis A Antibody IgM 0.17 Index (0-0.79); Hepatitis B Core Antibody Nonreactive (Nonreactive); Hepatitis B Surface Antigen Negative (Negative); ~HepC Num1 6.85 S/CO (0.00-0.79); ~Hepatitis A Antibody IgM Nonreactive (Nonreactive); ~Hepatitis B Surface Antibody NONREACTIVE (Nonreactive); ~Hepatitis C Antibody Reactive (Nonreactive)
[2023-09-10 13:14] LABS: HCV Log PCR <1.18 NOT DETECTED Log IU/mL (NOT DETECTED); HepC Viral Load <15 NOT DETECTED IU/mL (NOT DETECTED)
[2023-09-11 18:03] LABS: Ceruloplasmin 22 mg/dL (14-30)
[2023-09-11 18:38] LABS: Haptoglobin 82 mg/dL (43-212)
[2023-09-12 11:43] LABS: Mitochondrial Antibodies NEGATIVE (NEGATIVE)
[2023-09-12 23:13] LABS: Alpha Fetoprotein 4.1 ng/mL (<6.1)
[2023-09-14 07:43] LABS: Smooth Muscle Antibody <20 U (<20)
== END 2023-09-07 11:23 | disposition home or self-care (01) ==
LOC: HO.LAB 11:22
PROVIDERS: PCP Nurse Practitioner Family; Visit Provider Nurse Practitioner Family
DX: Z11.4 Encounter for screening for human immunodeficiency virus [HIV] (principal); R79.89 Other specified abnormal findings of blood chemistry; K58.9 Irritable bowel syndrome, unspecified; R74.8 Abnormal levels of other serum enzymes; R82.90 Unspecified abnormal findings in urine; K76.0 Fatty (change of) liver, not elsewhere classified; Z86.19 Personal history of other infectious and parasitic diseases
CPT/HCPCS: 36415; 81001; 82105; 82247; 82248; 82390; 82728; 83010; 83615; 85045; 86015; 86140; 86381; 86704; 86706; 86709; 86803; 87086; 87088; 87340; 87389; 87522; 99212

== ENCOUNTER 2023-09-25 10:44 | Outpatient (REF) | payer MEDICARE, SELFPAY | END 2023-09-25 10:45 | disposition home or self-care (01) | LOC: HO.US 10:44 | PROVIDERS: PCP Nurse Practitioner Family; Visit Provider Nurse Practitioner Family | DX: Z13.89 Encounter for screening for other disorder (principal) ==

== ENCOUNTER 2023-09-26 09:23 | Outpatient (REF) | payer MEDICARE, SELFPAY ==
--- NOTE | ~2023-09-26 | US_ITS ---
EXAMINATION: US COMPLETE ABDOMEN WITH LIVER ELASTOGRAPHY CLINICAL INFORMATION: Abnormal LFTs. COMPARISON: CT chest 10/27/2022, CT abdomen 04/18/2022. TECHNIQUE: Real-time imaging of the abdominal viscera. Noninvasive ultrasound liver fibrosis assessment is performed using Jamshid ElastPQ point quantification shear wave elastography (2D-SWE) with a C5-2 MHz transducer. Multiple elastography samples are obtained. FINDINGS: PANCREAS: The pancreas obscured by bowel gas and could not be evaluated. ABDOMINAL AORTA: The distal aorta was nonaneurysmal but the proximal and mid portions could not be seen. INFERIOR VENA CAVA: Visualized portions are normal. LIVER: The liver is enlarged with increased echogenicity consistent with hepatic steatosis. No focal lesion or intrahepatic biliary duct dilatation. The right lobe measures 19.6 cm in length. The left lobe measures 13.0 cm in length. Portal flow is towards the liver (hepatopetal). Shear wave liver elastography median stiffness is 1.61 m/s (reference: normal median stiffness is 1.3 m/s or less). IQR/median stiffness to assess sampling precision is 0.09 (reference: good quality data set is IQR/median stiffness of 0.15 or less). GALLBLADDER: Normal. The gallbladder is physiologically distended without evidence of stones, sludge, polyps, wall thickening or pericholecystic fluid. COMMON BILE DUCT: Normal in caliber measuring 0.6 cm in diameter. RIGHT KIDNEY: Normal. No hydronephrosis. No renal calculi or focal parenchymal lesions. The kidney measures 12.5 cm in maximum dimension. LEFT KIDNEY: Normal. No hydronephrosis. No renal calculi or focal parenchymal lesions. The kidney measures 11.4 cm in maximum dimension. SPLEEN: Normal. The spleen is enlarged measuring 16 cm in maximum dimension. FREE FLUID: None. US/US abdomen comp w elastography IMPRESSION: 1. Enlarged fatty liver and splenomegaly. 2. Liver elastography: In the absence of other known clinical signs, measurements rule out compensated advanced chronic liver disease. If there are known clinical signs, further testing may be needed for confirmation. REFERENCE: Society of Radiologists in Ultrasound Liver Stiffness Thresholds (2020): LIVER STIFFNESS THRESHOLDS: *Liver Stiffness equal or less than 1.3 m/s: High probability of being normal. *Liver Stiffness less than 1.7 m/s: In the absence of other known clinical signs, rules out compensated advanced chronic liver disease. *Liver Stiffness 1.7-2.1 m/s: Suggestive of compensated advanced chronic liver disease but need further test for confirmation. *Liver Stiffness over 2.1 m/s: Rules in compensated advanced chronic liver disease. *Liver Stiffness over 2.4 m/s: Suggestive of clinically significant portal hypertension. QUALITY OF DATA SET: *IQR/Median value equal or less than 0.15 implies a quality data set. *IQR/Median value over 0.15 implies a poor quality data set. SIGNIFICANT CHANGE FROM PRIOR EXAM: Significant change if liver stiffness measurement is 10% or greater from prior exam. OTHER CONSIDERATIONS: The stage of liver fibrosis may be overestimated in the setting of acute hepatitis, liver inflammation, elevated liver function tests, hepatic vascular congestion, obstructive cholestasis, non-fasting state, and infiltrative diseases such as amyloidosis and lymphoma. In some patients with NAFLD, the liver stiffness thresholds for compensated advanced chronic liver disease may be lower. In causes other than viral hepatitis and NAFLD, liver stiffness thresholds are not well established.
== END 2023-09-26 09:24 | disposition home or self-care (01) ==
LOC: HO.US 09:23
PROVIDERS: PCP Nurse Practitioner Family; Visit Provider Nurse Practitioner Family
DX: R79.89 Other specified abnormal findings of blood chemistry (principal)
CPT/HCPCS: 76700; 76981

== ENCOUNTER 2023-11-07 11:24 | Outpatient (AMB) | payer MEDICARE, SELFPAY ==
--- NOTE | 2023-11-07 11:27 | A.OFFVIS_ITS ---
Vital Signs 11/07/23 11:29 Height 5 ft 9 in Weight 207 lb 3.752 oz BMI 30.6 BP 126/70 Blood Pressure Location Lt brachial Position Sitting Pulse 58 Pulse Source Pulse Oximeter Pulse Oximetry (%) 96 Oxygen Delivery Method Room Air Intake Visit Reasons: 2 month follow up Intake Note: Xavier presents in office today for a scheduled 2 mos FUV. CC; Pt had US completed 09/25, labs were completed. Pt reports that he has been doing well since his last visit. Pt does report a new onset of an abnormal sensation with possible relevance to his past hernia repairs. Pt states that they notice the sensation primarily around meal time either before or after. Pt does report PRN use of senna still to this point. Hand Clerical Verifier Required: No Allergies codeine Allergy (Severe, Verified 11/07/23 11:28) COLD SWEATS morphine Allergy (Severe, Verified 11/07/23 11:28) COLD SWEATS perflutren Adverse Reaction (Verified 11/07/23 11:28) Back Pain HPI HPI 2 month follow up: Details: LAST VISIT Fatty liver Elevated bilirubin Transaminitis GERD (gastroesophageal reflux disease) Postprandial epigastric pain Postprandial abdominal bloating Abdominal distension (gaseous) Plan Transaminitis, elevated total bilirubin, most likely to patient's increased echogenicity of the liver and previous history of hep C. Will check direct bilirubin. Will check CRP, rule out autoimmune disorders. Will do complete ultrasound with liver elastography. Patient does admit to have left upper quadrant pain. Patient will start taking senna every evening to help her move his bowels better. Encouraged to lose weight, exercise. I will see patient in 2 months, sooner on as needed basis. Patient is agreeable to this plan and verbalizes understanding of instructions. He was given the opportunity to ask questions and all questions answered. ? Thank you for allowing me to participate in his care Orders Orders Hepatitis A,B,C Profile Today R79.89 Hepatitis C Viral Load Today Z86.19 C Reactive Protein Today K58.9 Ceruloplasmin Today R79.89 Ferritin Today R74.8 Bilirubin Direct Today R17 Smooth Muscle Antibody Today R79.89 HIV Ab/Ag Today R79.89 Mitochondrial Antibody Today R79.89 Alpha Fetoprotein Today R79.89 US abdomen comp w elastography Today R79.89 Medications New sennosides (Natural Senna Laxative) 17.2 mg (2 x 8.6 mg) PO BEDTIME 60 tabs 3RF constipation K59.00 TODAY'S VISIT: Patient is here today for follow-up. Patient is accompanied by his partner. Patient reports that he has been feeling fairly well, however sometimes after meals he feels like he has numbness around his belly button where he had hernia repair. Patient reports occasional bloating after meals depending on what he eats. Patient had blood work as well as abdominal ultrasound with elastography done that we are discussing today. No acute processes found. Hepatic steatosis rule out compensated advanced chronic liver disease. Patient denies melena, hematochezia. Denies any dyspepsia, dysphagia or odynophagia. Patient denies any other GI concerning symptoms. [facility] Medical History Fatty liver Personal history of nicotine dependence History of pulmonary embolism (~02/2022) Tubular adenoma of colon Mass of right adrenal gland Surgical History History of colon surgery History of transurethral resection of bladder tumor (TURBT) History of hernia repair History of fusion of cervical spine History of colonoscopy History of appendectomy History of shoulder surgery History of esophagogastroduodenoscopy (EGD) History of rectal polypectomy History of surgery of head Family History Mother Dementia Father Throat cancer Social History Housing: Apartment Alcohol intake: current Alcohol intake frequency: former alcohol drinker Alcohol type: beer and wine Patient Tobacco Use Status: Former Tobacco user Tobacco use type: Cigarette Years Smoked: > 17 yrs e-Cigarette/Vaping Use: Never Used Substance Use Type: Marijuana Current occupational status: retired Cognitive needs: No Hearing needs: No Vision needs: No Review of Systems Const Denies weight gain and Denies weight loss ENT Reports no additional complaints, Denies dysphagia and Denies odynophagia Card Reports no additional complaints Resp Reports no additional complaints GI Reports abdominal pain, Denies belching, Denies melena, Reports bloating, Reports constipation, Denies dysphagia, Denies excessive flatus, Denies dyspepsia, Denies heartburn, Denies diarrhea, Reports loose stools, Denies nausea, Denies odynophagia and Denies vomiting Reports no additional complaints Musc Reports no additional complaints Neuro Reports no additional complaints Psych Reports no additional complaints Endo Reports no additional complaints Physical Exam Vital Signs: Last Vital Signs Pulse 58 11/07/23 11:29 BP 126/70 11/07/23 11:29 Pulse Ox 96 11/07/23 11:29 Oxygen Delivery Method Room Air 11/07/23 11:29 BMI result Body Mass Index 30.6 Const General: healthy appearing and no acute distress Nutritional Appearance: obese Orientation/consciousness: patient oriented x3 Resp Effort & Inspection: normal respiratory effort, able to speak in complete sentences, no tracheal deviation and symmetric chest movement Auscultation: clear to auscultation bilaterally Cardio Rate: regular rate GI Inspection: Yes distended and Yes obesity Palpation (GI): Soft to palpation, not firm, nontender and No hepatosplenomegaly present Auscultation: normal bowel sounds General: Yes no CVA tenderness Back/Spine/Pelvis Back: no CVA tenderness Skin General skin exam: elasticity normal, turgor normal and dry skin Neuro General: patient oriented x3 Psych Appearance: grossly normal Mental Status: mental status grossly normal Results Reviewed Results Reviewed: Laboratory Tests 09/07/23 12:19 Ferritin 211 Total Bilirubin 0.9 Direct Bilirubin 0.5 C-Reactive Protein 0.45 Ceruloplasmin 22 Alpha Fetoprotein 4.1 Anti-Mitochondrial Ab NEGATIVE Anti-Smooth Muscle Ab <20 Hepatitis A IgM Ab Nonreactive Hep Bs Antigen Negative Hep Bs Antibody NONREACTIVE Hep B Core Total Ab Nonreactive Hepatitis C Ab (EIA) Reactive H Hep C Viral Load <15 NOT DETECTED Hep C Viral Load Log <1.18 NOT DETECTED HIV 1&2 Ab/P24 Ag 4thGn Nonreactive ABDOMINAL ULTRASOUND WITH ELASTOGRAPHY FINDINGS: PANCREAS: The pancreas obscured by bowel gas and could not be evaluated. ABDOMINAL AORTA: The distal aorta was nonaneurysmal but the proximal and mid portions could not be seen. INFERIOR VENA CAVA: Visualized portions are normal. LIVER: The liver is enlarged with increased echogenicity consistent with hepatic steatosis. No focal lesion or intrahepatic biliary duct dilatation. The right lobe measures 19.6 cm in length. The left lobe measures 13.0 cm in length. Portal flow is towards the liver (hepatopetal). Shear wave liver elastography median stiffness is 1.61 m/s (reference: normal median stiffness is 1.3 m/s or less). IQR/median stiffness to assess sampling precision is 0.09 (reference: good quality data set is IQR/median stiffness of 0.15 or less). GALLBLADDER: Normal. The gallbladder is physiologically distended without evidence of stones, sludge, polyps, wall thickening or pericholecystic fluid. COMMON BILE DUCT: Normal in caliber measuring 0.6 cm in diameter. RIGHT KIDNEY: Normal. No hydronephrosis. No renal calculi or focal parenchymal lesions. The kidney measures 12.5 cm in maximum dimension. LEFT KIDNEY: Normal. No hydronephrosis. No renal calculi or focal parenchymal lesions. The kidney measures 11.4 cm in maximum dimension. SPLEEN: Normal. The spleen is enlarged measuring 16 cm in maximum dimension. FREE FLUID: None. US/US abdomen comp w elastography IMPRESSION: 1. Enlarged fatty liver and splenomegaly. 2. Liver elastography: In the absence of other known clinical signs, measurements rule out compensated advanced chronic liver disease. If there are known clinical signs, further testing may be needed for confirmation. Assessment & Plan Assessment & Plan (1) Fatty liver: Code(s): K76.0 - Fatty (change of) liver, not elsewhere classified Category: Medical (2) Elevated bilirubin: Code(s): R17 - Unspecified jaundice Category: Medical (3) Transaminitis: Code(s): R74.01 - Elevation of levels of liver transaminase levels (4) GERD (gastroesophageal reflux disease): Code(s): K21.9 - Gastro-esophageal reflux disease without esophagitis Qualifiers: Esophagitis presence: without esophagitis Qualified Code(s): K21.9 - Gastro-esophageal reflux disease without esophagitis (5) Postprandial epigastric pain: Code(s): R10.13 - Epigastric pain (6) Postprandial abdominal bloating: Code(s): R14.0 - Abdominal distension (gaseous) (7) Abdominal distension (gaseous): Code(s): R14.0 - Abdominal distension (gaseous) Plan No hernias appreciated during the exam. Patient will continue taking senna so we can move his bowels daily. Avoid dietary triggers and late night snacking. Low FODMAP diet recommended. List of food recommended as well as list of food to avoid discussed with patient. Patient can take simethicone as needed as needed basis. Continue omeprazole daily. Patient will follow-up in the office in 4 months. He will call us if he will have any GI concerning symptoms. He is agreeable to this plan and verbalizes understanding of instructions. He was given the opportunity to ask questions and all questions answered. Thank you for allowing me to participate in his care Medications: New simethicone 125 mg PO BID-QID PRN 120 caps 3RF abdominal distention K21.9 - Gastro-esophageal reflux disease without esophagitis Refilled sennosides (Natural Senna Laxative) 17.2 mg (2 x 8.6 mg) PO BEDTIME 60 tabs 3RF constipation K59.00 - Constipation, unspecified omeprazole 20 mg PO DAILY 90 caps 3RF Coding Level of Care Code Est Pt Level 4 (82067) Diagnoses Fatty liver K76.0 Elevated bilirubin R17 Transaminitis R74.01 Gastroesophageal reflux disease without esophagitis K21.9 Esophagitis presence: without esophagitis Postprandial epigastric pain R10.13 Postprandial abdominal bloating R14.0 Abdominal distension (gaseous) R14.0 Time Spent (min) 35 Comment 20 minutes spent with patient and additional 15 minutes spent reviewing his records
[2023-11-07 11:29] VITALS: BP 126/70; PULSE 58; O2SAT 96; BMI 30.6
== END 2023-11-07 11:59 | disposition home or self-care (01) ==
PROVIDERS: PCP Nurse Practitioner Family; Visit Provider Nurse Practitioner Family
DX: K76.0 Fatty (change of) liver, not elsewhere classified (principal); R74.01 Elevation of levels of liver transaminase levels; K21.9 Gastro-esophageal reflux disease without esophagitis; R14.0 Abdominal distension (gaseous)
CPT/HCPCS: 99214

== ENCOUNTER → 2023-11-07 11:24 | Outpatient (BNVA) | payer MEDICARE, SELFPAY | PROVIDERS: PCP Nurse Practitioner Family; Visit Provider Nurse Practitioner Family | DX: K21.9 Gastro-esophageal reflux disease without esophagitis (principal); K59.00 Constipation, unspecified; R10.13 Epigastric pain; R74.01 Elevation of levels of liver transaminase levels; R17 Unspecified jaundice; R14.0 Abdominal distension (gaseous) | CPT/HCPCS: 99212 ==

== ENCOUNTER 2024-01-15 10:34 | Outpatient (AMB) | payer MEDICARE, SELFPAY ==
[2024-01-15 10:36] VITALS: BP 130/70; PULSE 59; O2SAT 96; BMI 30.1
--- NOTE | 2024-01-15 10:36 | MHC.PC.OV ---
Vital Signs 01/15/24 10:36 Height 5 ft 9 in Weight 204 lb BMI 30.1 BP 130/70 Blood Pressure Location Rt brachial Position Sitting Pulse 59 Pulse Source Pulse Oximeter Pulse Oximetry (%) 96 Oxygen Delivery Method Room Air Intake Visit Reasons: 6M F/U Allergies codeine Allergy (Severe, Verified 01/15/24 10:46) COLD SWEATS morphine Allergy (Severe, Verified 01/15/24 10:46) COLD SWEATS perflutren Adverse Reaction (Verified 01/15/24 10:46) Back Pain Medication List - Last Reconciled 01/15/24 by HENRY Rosenthal aspirin 81 mg PO DAILY fluticasone propionate 50 mcg/actuation 2 sprays intranasal DAILY gabapentin mg PO TID omeprazole 20 mg PO DAILY sennosides (Natural Senna Laxative) 17.2 mg (2 x 8.6 mg) PO BEDTIME simethicone 125 mg PO BID-QID PRN Tobacco use date assessed: 07/16/23 Fall risk assessment: No Falls in past year Last assessed Fall Risk: 01/15/24 Dental Screening Dental Screen Date: 07/16/23 HPI 6M F/U HPI Details bilat dorsal foot large ? arthritic protruding lesions. These are causing pain, discomfort. He is following up with podiatry. Fatty liver: encouraged better diet and more exercise. pt does not drink ETOH. Denies fever, chills, and dizziness. [facility] Medical History Fatty liver Personal history of nicotine dependence History of pulmonary embolism (~02/2022) Tubular adenoma of colon Mass of right adrenal gland Surgical History History of colon surgery History of transurethral resection of bladder tumor (TURBT) History of hernia repair History of fusion of cervical spine History of colonoscopy History of appendectomy History of shoulder surgery History of esophagogastroduodenoscopy (EGD) History of rectal polypectomy History of surgery of head Family History Mother Dementia Father Throat cancer Social History Housing: Apartment Alcohol intake: current Alcohol intake frequency: former alcohol drinker Alcohol type: beer and wine Patient Tobacco Use Status: Former Tobacco user Tobacco use type: Cigarette Years Smoked: > 17 yrs e-Cigarette/Vaping Use: Never Used Substance Use Type: Marijuana Current occupational status: retired Cognitive needs: No Hearing needs: No Vision needs: No Questionnaire PHQ-9 Over the last 2 weeks, how often have you been bothered by any of the following problems? 1. Little interest or pleasure in doing things: several days 2. Feeling down, depressed, or hopeless: several days 3. Trouble falling or staying asleep, or sleeping too much: not at all 4. Feeling tired or having little energy: several days 5. Poor appetite or overeating: several days 6. Feeling bad about yourself - or that you are a failure or have let yourself or your family down: not at all 7. Trouble concentrating on things, such as reading the newspaper or watching television: not at all 8. Moving or speaking so slowly that other people could have noticed. Or the opposite - being so fidgety or restless that you have been moving around a lot more than usual: not at all 9. Thoughts that you would be better off or of hurting yourself in some way: not at all Total score: 4 Depression Screening Interpretation: Negative Depression Screening Done: Yes 34528 - PHQ-9 Billing: Yes Source: Developed by Drs. Zhen Taylor, Precious Pate, Ruddy Metcalf and colleagues, with an educational nikkie from [employer]. Thrive Questionnaire Date Thrive assessed: 01/15/24 I am a: Patient What is your living situation today?: I have a steady place to live Within the past 12 months, did the food you bought not last and you didn't have the money to get more?: Never true Within the past 12 months, did you worry whether your food would run out before you got money to buy more?: Never true Do you have trouble paying for medicines?: No Do you have trouble getting transportation to medical appointments?: No Do you have trouble paying your heating and electricity bill?: No Do you have trouble taking care of your child, family member or friend?: No Do you have trouble with day-to-day activities such as bathing, preparing meals, shopping, managing finances, etc.?: No Are you interested in more education?: No Please select the resources that you would like help with: None Currently or been in a relationship where the following occur: No concerns reported THRIVE Score: 0 AUDIT C Alcohol Use Questionnaire (AUDIT-C) 1. How often do you have a drink containing alcohol?: Monthly or less 2. How many drinks containing alcohol do you have on a typical day when you are drinking?: 1 or 2 3. How often do you have six or more drinks on one occasion?: Never Total Score: 1 Score Reviewed/Action Taken: Yes JUNIOR-7 AMB Questionnaire JUNIOR-7 Date JUNIOR - 7 assessed: 01/15/24 Feeling nervous, anxious, or on edge: 1 = Several days Not being able to stop or control worryin = Not at all Worrying too much about different things: 1 = Several days Trouble relaxin = Several days Being so restless that it is hard to sit still: 1 = Several days Becoming easily annoyed or irritable: 0 = Not at all Feeling afraid as if something awful might happen: 0 = Not at all Total JUNIOR-7 score (0-4 normal; 5-9 mild; 10-14 moderate; 15-21 severe): 4 Source: Developed by Drs. Zhen Taylor, Precious Pate, Ruddy Metcalf and colleagues, with an educational nikkie from [employer]. JUNIOR-7 Assessment Billing JUNIOR-7 Assessment Tool: JUNIOR-7 Assessment 03823 Review of Systems Const Reports as per HPI Physical exam (Primary Care) Vital Signs: Last Vital Signs Pulse 59 01/15/24 10:36 BP 130/70 01/15/24 10:36 Pulse Ox 96 01/15/24 10:36 Oxygen Delivery Method Room Air 01/15/24 10:36 BMI result Body Mass Index 30.1 Tobacco/Smoking Status: Tobacco use Status Tobacco use date assessed 07/16/23 01/15/24 10:40 Patient Tobacco Use Status Former Tobacco user 01/15/24 10:40 Tobacco use type Cigarette 01/15/24 10:40 e-Cigarette/Vaping Use Never Used 01/15/24 10:40 PHQ-9: PHQ-9 Score PHQ-9: Total score 4 01/15/24 10:40 Depression Screening Interpretation: Negative Thrive Assessment: Date of Thrive Assessment Date Thrive assessed 01/15/24 01/15/24 10:40 Currently or been in a relationship where the following occur: No concerns reported Const General: cooperative Orientation/consciousness: patient oriented x3 Resp Effort & Inspection: normal respiratory effort Auscultation: clear to auscultation bilaterally and diminished lung sounds Cardio Rate: regular rate Rhythm: regular rhythm Heart sounds: S1 normal heart sound present and S2 normal heart sound present Neuro General: patient oriented x3 Extrem Other: dorsal aspect of feet with ? protruding arthritic lesion, large/indurated Psych Appearance: grossly normal Mental Status: mental status grossly normal Speech and movement: Normal speech and movement present Affect: normal affect Attitude: cooperative Thought process: Normal thought process present Thought content: Normal thought content present Insight: Good insight present (Psych) Judgement: Good judgement present (Psych) Coding Level of Care Code Est Pt Level 3 (44709) Diagnoses Fatty liver K76.0 Foot lesion L98.9 Additional Codes JUNIOR-7 Assessment Billing - JUNIOR-7 Assessment Tool: JUNIOR-7 Assessment 30704 ([id number]) Assessment & Plan Assessment & Plan (1) Fatty liver: Code(s): K76.0 - Fatty (change of) liver, not elsewhere classified Category: Medical Plan: better diet, more exercise (2) Foot lesion: Code(s): L98.9 - Disorder of the skin and subcutaneous tissue, unspecified Category: Medical Plan: seeing podiatry Plan The patient agreed to the use of a associate medical director for this encounter. Scribed for HENRY Wood by Arabella Miles associate medical director, on 01/15/2024 at 10:45 EST. Orders: Orders Complete Blood Count Auto Diff Today K76.0 - Fatty (change of) liver, not elsewhere classified Lipid Panel Today K76.0 - Fatty (change of) liver, not elsewhere classified Comprehensive [place]. Panel Fast Today K76.0 - Fatty (change of) liver, not elsewhere classified TSH reflex Free T4 Today K76.0 - Fatty (change of) liver, not elsewhere classified UA CC w/rflx Micro + Cult Today K76.0 - Fatty (change of) liver, not elsewhere classified
== END 2024-01-15 11:35 | disposition home or self-care (01) ==
PROVIDERS: PCP Nurse Practitioner Family; Visit Provider Nurse Practitioner Family
DX: K76.0 Fatty (change of) liver, not elsewhere classified (principal); L98.9 Disorder of the skin and subcutaneous tissue, unspecified

== ENCOUNTER → 2024-01-15 10:34 | Outpatient (BNVA) | payer MEDICARE, SELFPAY | PROVIDERS: PCP Nurse Practitioner Family; Visit Provider Nurse Practitioner Family | DX: K76.0 Fatty (change of) liver, not elsewhere classified (principal); L98.9 Disorder of the skin and subcutaneous tissue, unspecified | CPT/HCPCS: 96127; 99212 ==

== ENCOUNTER 2024-03-03 15:04 | Outpatient (AMB) | payer MEDICARE, SELFPAY ==
[2024-03-03 15:09] VITALS: BP 110/76; PULSE 62; O2SAT 96; BMI 30.2
--- NOTE | 2024-03-03 15:09 | A.OFFVIS_ITS ---
Vital Signs 03/03/24 15:09 Height 5 ft 9 in Weight 204 lb 9.423 oz BMI 30.2 BP 110/76 Blood Pressure Location Lt brachial Position Sitting Pulse 62 Pulse Source Pulse Oximeter Pulse Oximetry (%) 96 Oxygen Delivery Method Room Air Intake Visit Reasons: 4 mos FUV. Intake Note: PRESCRIPTIONS LAST GENERATED simethicone 125 mg capsule?125 mg PO BID-QID PRN 120 caps 3RF Donovan,Chandrika D 11/07/23 11:55 (Transmitted) sennosides 8.6 mg tablet?(Natural Senna Laxative)?17.2 mg (2 x 8.6 mg) PO BEDTIME 60 tabs 3RF Donovan,Chandrika D 11/07/23 11:55 (Transmitted) omeprazole 20 mg capsule,delayed release?20 mg PO DAILY 90 caps 3RF Donovan,Chandrika D 11/07/23 11:55 (Transmitted) Pt is taking senna and omeprazole. Pt no longer taking simethicone. Relevant Flags or Indicators ? 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 [place] presents in office today for a scheduled 4 mos FUV. CC; No recent labs, diagnostics placed. Pt reports having throacic CT through [facility] within the last 2 weeks. Relevant GI Sx as reported per pt? Abdominal Pain - Pt reports having epigastric pain in the same location as the mass he reported during his last visit. Pt reports that it is worse with palpation / point tenderness. ? Hx of any recent surgeries? 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 Patient will continue taking senna so we can move his bowels daily. Avoid dietary triggers and late night snacking. Low FODMAP diet recommended. List of food recommended as well as list of food to avoid discussed with patient. Patient can take simethicone as needed as needed basis. Continue omeprazole daily. Patient will follow-up in the office in 4 months. He will call us if he will have any GI concerning symptoms. He is agreeable to this plan and verbalizes understanding of instructions. He was given the opportunity to ask questions and all questions answered. ? Thank you for allowing me to participate in his care Medications New simethicone 125 mg PO BID-QID PRN 120 caps 3RF abdominal distention K21.9 Refilled sennosides (Natural Senna Laxative) 17.2 mg (2 x 8.6 mg) PO BEDTIME 60 tabs 3RF constipation K59.00 omeprazole 20 mg PO DAILY 90 caps 3RF TODAY'S VISIT: Patient is here today for follow-up. Patient is accompanied by his . Patient reports that he has been doing fairly well, moving his bowels well now that he takes senna. Occasionally uses simethicone for abdominal bloating. Patient reports that he changed his diet and is eating Activia yogurt. Patient reports that he is moving his bowels better now. Uses abdominal binder throughout the day to help with comfort. Patient denies any nausea or vomiting. He will be due to go for not colonoscopy towards the end of next year. Patient denies any melena, hematochezia, unintentional weight loss or ribbon like stools. Patient denies dyspepsia, dysphagia or odynophagia. He uses omeprazole daily, avoids eating late at night. Patient denies any GI concerning symptoms today. Patient is waiting to go for MRI for his lung scan. No change on CT scan seen. Patient is following up with thoracic surgeon at [facility] Medical History Fatty liver Personal history of nicotine dependence History of pulmonary embolism (~02/2022) Tubular adenoma of colon Mass of right adrenal gland Surgical History History of colon surgery History of transurethral resection of bladder tumor (TURBT) History of hernia repair History of fusion of cervical spine History of colonoscopy History of appendectomy History of shoulder surgery History of esophagogastroduodenoscopy (EGD) History of rectal polypectomy History of surgery of head Family History Mother Dementia Father Throat cancer Social History Housing: Apartment Alcohol intake: current Alcohol intake frequency: former alcohol drinker Alcohol type: beer and wine Patient Tobacco Use Status: Former Tobacco user Tobacco use type: Cigarette Years Smoked: > 17 yrs e-Cigarette/Vaping Use: Never Used Substance Use Type: Marijuana Current occupational status: retired Cognitive needs: No Hearing needs: No Vision needs: No Review of Systems Const Denies weight gain and Denies weight loss ENT Reports no additional complaints, Denies dysphagia and Denies odynophagia Card Reports no additional complaints Resp Reports no additional complaints GI Reports abdominal pain, Denies belching, Denies melena, Reports bloating, Repo rts constipation, Denies dysphagia, Denies excessive flatus, Denies dyspepsia, Denies heartburn, Denies diarrhea, Reports loose stools, Denies nausea, Denies odynophagia and Denies vomiting Reports no additional complaints Musc Reports no additional complaints Neuro Reports no additional complaints Psych Reports no additional complaints Endo Reports no additional complaints Physical Exam Vital Signs: Last Vital Signs Pulse 62 03/03/24 15:09 BP 110/76 03/03/24 15:09 Pulse Ox 96 03/03/24 15:09 Oxygen Delivery Method Room Air 03/03/24 15:09 BMI result Body Mass Index 30.2 Const General: healthy appearing and no acute distress Nutritional Appearance: obese Orientation/consciousness: patient oriented x3 Resp Effort & Inspection: normal respiratory effort, able to speak in complete sentences, no tracheal deviation and symmetric chest movement Auscultation: clear to auscultation bilaterally Cardio Rate: regular rate GI Inspection: Yes distended and Yes obesity Palpation (GI): Soft to palpation, not firm, nontender and No hepatosplenomegaly present Auscultation: normal bowel sounds General: Yes no CVA tenderness Back/Spine/Pelvis Back: no CVA tenderness Skin General skin exam: elasticity normal, turgor normal and dry skin Neuro General: patient oriented x3 Psych Appearance: grossly normal Mental Status: mental status grossly normal Assessment & Plan Assessment & Plan (1) Fatty liver: Code(s): K76.0 - Fatty (change of) liver, not elsewhere classified Category: Medical (2) Elevated bilirubin: Code(s): R17 - Unspecified jaundice Category: Medical (3) Transaminitis: Code(s): R74.01 - Elevation of levels of liver transaminase levels (4) GERD (gastroesophageal reflux disease): Code(s): K21.9 - Gastro-esophageal reflux disease without esophagitis Qualifiers: Esophagitis presence: esophagitis presence not specified Qualified Cod e(s): K21.9 - Gastro-esophageal reflux disease without esophagitis (5) Postprandial epigastric pain: Code(s): R10.13 - Epigastric pain (6) Postprandial abdominal bloating: Code(s): R14.0 - Abdominal distension (gaseous) (7) Abdominal distension (gaseous): Code(s): R14.0 - Abdominal distension (gaseous) Plan Will encourage patient to get blood work done. PCP send patient for CBC and CMP, I will add lipase. Patient does report upper abdominal discomfort. Continue omeprazole daily. Avoid dietary triggers and late night snacking. Staying upright for minimum 3 hours after meals discussed with patient. Patient can continue taking senna. Food intake and activity to promote better bowel motility. Patient can take probiotic daily. Also can take fiber supplements. Patient will return in 6 months discuss going for colonoscopy and possible upper endoscopy. He is agreeable to plan of care and verbalizes understanding of instructions. He was given the opportunity to ask questions and all questions answered. Thank you for allowing me to participate in her care Orders: Orders Lipase 03/03/24 R10.9 - Unspecified abdominal pain Medications: Refilled sennosides (Natural Senna Laxative) 17.2 mg (2 x 8.6 mg) PO BEDTIME 180 tabs 3RF constipation K59.00 - Constipation, unspecified Coding Level of Care Code Est Pt Level 4 (69518) Complex EM visit Add On G2211 Diagnoses Fatty liver K76.0 Elevated bilirubin R17 Transaminitis R74.01 Gastroesophageal reflux disease, unspecified whether esophagitis present K21.9 Esophagitis presence: esophagitis presence not specified Postprandial epigastric pain R10.13 Postprandial abdominal bloating R14.0 Abdominal distension (gaseous) R14.0 Time Spent (min) 35 Comment 30 minutes spent with patient and additional 15 minutes spent reviewing his records
== END 2024-03-03 15:43 | disposition home or self-care (01) ==
PROVIDERS: PCP Nurse Practitioner Family; Visit Provider Nurse Practitioner Family
DX: K76.0 Fatty (change of) liver, not elsewhere classified (principal); R74.01 Elevation of levels of liver transaminase levels; K21.9 Gastro-esophageal reflux disease without esophagitis; R14.0 Abdominal distension (gaseous)
CPT/HCPCS: 99214; G2211

== ENCOUNTER → 2024-03-03 15:04 | Outpatient (BNVA) | payer MEDICARE, SELFPAY | PROVIDERS: PCP Nurse Practitioner Family; Visit Provider Nurse Practitioner Family | DX: K21.9 Gastro-esophageal reflux disease without esophagitis (principal); K59.00 Constipation, unspecified; K76.0 Fatty (change of) liver, not elsewhere classified; R74.01 Elevation of levels of liver transaminase levels; R10.13 Epigastric pain; R14.0 Abdominal distension (gaseous); Z79.899 Other long term (current) drug therapy | CPT/HCPCS: 99212 ==

== ENCOUNTER 2024-04-29 08:03 | Outpatient (REF) | payer MEDICARE, SELFPAY ==
--- NOTE | ~2024-04-29 | XR_ITS ---
EXAMINATION: XR CHEST CLINICAL INFORMATION: R05.9 - Cough, unspecified COMPARISON: None available. TECHNIQUE: 2 views of the chest were obtained. FINDINGS: The lungs are hyperinflated but clear acute process. The heart size and pulmonary vascularity is normal. There is mild spondylosis dorsal spine. No aggressive lytic or sclerotic process seen.. XR/XR chest 2V IMPRESSION: Unremarkable chest examination. Electronically signed by: Drew Muñoz MD 04/29/2024 09:11 AM NEO
== END 2024-04-29 08:04 | disposition home or self-care (01) ==
LOC: HO.HMGCX 08:03
PROVIDERS: PCP Nurse Practitioner Family; Visit Provider Physician Assistant
DX: J22 Unspecified acute lower respiratory infection (principal); R05.9 Cough, unspecified
CPT/HCPCS: 71046; 99212

== ENCOUNTER 2024-04-29 08:03 | Outpatient (AMB) | payer MEDICARE, SELFPAY ==
--- NOTE | 2024-04-29 08:28 | AM.OFFWIN_ITS ---
Intake Vital Signs 04/29/24 08:29 Height 5 ft 9 in Weight 195 lb BMI 28.8 BP 130/80 Blood Pressure Location Lt brachial Position Sitting Pulse 72 Pulse Source Pulse Oximeter Pulse Oximetry (%) 95 Oxygen Delivery Method Room Air Intake Visit Reasons: EP Cold symptoms Intake Note: Pt is here today for a walk in visit. Pt c/o chest congestion, cough nasal congestion, green/yellow mucus for 2 weeks now. Pt has tried otc medications and nothing is helping. Patient Tobacco Use Status: Former Tobacco user Allergies codeine Allergy (Severe, Verified 04/29/24 08:31) COLD SWEATS morphine Allergy (Severe, Verified 04/29/24 08:31) COLD SWEATS perflutren Adverse Reaction (Verified 04/29/24 08:31) Back Pain HPI HPI Comments History of Present Illness Details History - The patient is a 69-year-old male pres enting with respiratory symptoms including coughing and congestion. - Symptoms have been present for two wee ks, with persistent coughing and nasal congestion. - Dyspnea is experienced primarily at [facility], necessitating mouth breathing; the nose is completely obstructed. - The patient uses NyQuil and Coricidin for symptom relief, with limited success. - A negative result was reported from a multi-virus test for COVID-19, influenza, and RSV, conducted at home. - The patient has a known history of Chr onic Obstructive Pulmonary Disease ( COPD). - Sinus drainage is described as greenis h, with cough-associated pressure in the ears. - Flonase is used without proper techniq ue, and sinus headaches are noted. Physical Exam General: Cooperative, healthy appearing, comfortable and no acute distress Orientation/consciousness: Patient oriented x3 Limitations: No limitations Head: Normal to inspection Ears: Hearing grossly normal bilaterally, external ears normal and TM's normal bilaterally Nose: Normal external nose present, Normal nares present and No nasal discharge present Face and sinus: Normal facial exam and Sinuses tender Mouth: Normal oral and palatal mucosa present and moist mucous membranes Throat: Yes tonsils normal, Yes uvula midline. Posterior oropharynx erythema, no exudates Eyes: Appearance normal, both eyes and all related structures Neck: Normal visual inspection Respiratory: bronchovesicular sounds throughout. Normal respiratory effort, able to speak in complete sentences, Actively coughing, no respiratory distress, not tachypneic, no tripod positioning and no use of accessory muscles Cardiovascular: Regular rate and rhythm. Normal S1 and S2 Skin: No rashes or lesions noted Neuro: Patient oriented x3 Extremities: Normal to inspection and Yes no clubbing, cyanosis or edema ON LICENSE OF [facility] Medical History Fatty liver Personal history of nicotine dependence History of pulmonary embolism (~02/2022) Tubular adenoma of colon Mass of right adrenal gland Surgical History History of colon surgery History of transurethral resection of bladder tumor (TURBT) History of hernia repair History of fusion of cervical spine History of colonoscopy History of appendectomy History of shoulder surgery History of esophagogastroduodenoscopy (EGD) History of rectal polypectomy History of surgery of head Family History Mother Dementia Father Throat cancer Social History Housing: Apartment Alcohol intake: current Alcohol intake frequency: former alcohol drinker Alcohol type: beer and wine Patient Tobacco Use Status: Former Tobacco user Tobacco use type: Cigarette Years Smoked: > 17 yrs e-Cigarette/Vaping Use: Never Used Substance Use Type: Marijuana Current occupational status: retired Cognitive needs: No Hearing needs: No Vision needs: No Review of Systems Const All systems reviewed & are unremarkable except as noted in HPI and below Physical Exam Vital Signs: Last Vital Signs Pulse 72 04/29/24 08:29 BP 130/80 04/29/24 08:29 Pulse Ox 95 04/29/24 08:29 Oxygen Delivery Method Room Air 04/29/24 08:29 BMI result Body Mass Index 28.8 Assessment & Plan Assessment & Plan (1) Lower respiratory infection (e.g., bronchitis, pneumonia, pneumonitis, pulmonitis): Code(s): J22 - Unspecified acute lower respiratory infection Plan: Plan The patient will commence a regimen of prednisone for respiratory symptom management and azithromycin to address suspected community-acquired pneumonia. Emphasis was placed on the correct nasal spray technique to alleviate sinus symptoms. A chest x-ray is directed to confirm or rule out pneumonia, contingent on which additional antibiotic therapy may be pursued, Augmentin. Work absence is recommended for the next 3 days to ensure adequate rest and recovery. COPD management remains under the care of the primary provider, and no further inter ventions are made in this visit. Patient was informed and verbally consented to the use of an ambient scribe for clinic note documentation during this visit Orders: Orders XR chest 2V Today R05.9 - Cough, unspecified Medications: New methylprednisolone PO PER PKG DIR for 6 days 21 ea 0RF azithromycin For 250 mg dose pack: take 500 mg today (day 1), then 250 mg for 4 days (days 2-5) PO 6 tabs 0RF Coding Level of Care Code Est Pt Level 4 (68098) Diagnoses Lower respiratory infection (e.g., bronchitis, pneumonia, pneumonitis, pulmonitis) J22
[2024-04-29 08:29] VITALS: BP 130/80; PULSE 72; O2SAT 95; BMI 28.8
== END 2024-04-29 09:36 | disposition home or self-care (01) ==
PROVIDERS: PCP Nurse Practitioner Family; Visit Provider Physician Assistant
DX: J22 Unspecified acute lower respiratory infection (principal)

== ENCOUNTER → 2024-04-29 09:02 | Outpatient (BNV) | payer MEDICARE, SELFPAY | PROVIDERS: PCP Nurse Practitioner Family; Visit Provider Radiology Diagnostic Radiology | DX: R05.9 Cough, unspecified (principal) | CPT/HCPCS: 71046 ==

== ENCOUNTER 2024-08-20 10:34 | Outpatient (AMB) | payer MEDICARE, SELFPAY ==
--- NOTE | 2024-08-20 10:55 | A.OFFPC_ITS ---
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 Accompanied by: Spouse Allergies codeine Allergy (Severe, Verified 08/20/24 10:57) COLD SWEATS morphine Allergy (Severe, Verified 08/20/24 10:57) COLD SWEATS perflutren Adverse Reaction (Verified 08/20/24 10:57) Back Pain Tobacco use date assessed: 08/20/24 Fall risk assessment: No Falls in past year Last assessed Fall Risk: 08/20/24 Dental Screening Dental Screen Date: 08/20/24 Did you have a dental visit in the last 12 months?: No Did you have a dental problem in the last 6 months where you did not have access to dental care?: No Was dental information given to patient?: Patient declined HPI Annual Exam HPI Details History of Present Illness The patient is a 69-year-old male presenting for a routine physical examination. He has a history of round, scabbed ulcerations on his bilateral extremities, predominantly on the shins, associated with a severe pruritic sensation. These lesions occur primarily after sun exposure or extended standing and have been investigated for vascular causes without any significant findings. He reports neuropathy in his extremities, with positive sensations upon palpation, indicati ng sensory involvement. Additionally, he has a history of lung nodules but has not pursued recent thoracic consultation or imaging in a few years. The patient is obese and has varicose veins in the bilateral extremities. He has not consumed alcohol in over two decades and smokes marijuana recreationally. Health Maintenance - Scheduled colon screening - Referral to urologist for prostate hea lt - Referral to dermatology for ulceration s evaluation - Referral to thoracic specialist for rupert ng nodules evaluation - Discussion on neuropathic symptoms and nerve conduction testing planned Social History - Smokes marijuana regularly - Obese - Has abstained from alcohol for over 20 years following a history of heavy use Review of Systems - Skin: Reports pruritic sensations and ulcerations - Pulmonary: Denies chest pain, shortnes s of breath - Gastrointestinal: Denies abdominal ash n, blood in stool, constipation, diarrhea - Neurological: Reports neuropathic symp toms in bilateral extremities - Psychological: Denies suicidal ideatio n, homicidal ideation - Constitutional: Denies fevers, chills Physical Exam General: Cooperative, healthy appearing, comfortable, no acute distress and well developed, obese Orientation: Patient oriented x3 Limitations: No limitations Head: Normal to inspection Ears: Hearing grossly normal bilaterally Nose: Normal external nose present Face and sinus: Normal facial exam Eyes: Appearance normal, both eyes and all related structures Neck: Normal visual inspection and Yes full ROM Respiratory: Normal respiratory effort and able to speak in complete sentences. Clear to auscultation bilaterally, history of lung nodules Cardiovascular: Regular rate and rhythm. Normal S1 and S2 GI: Normal to inspection. Soft to palpation and nontender Skin: Ulcerations to bilateral extremities, especially galvez regions, with pruritic sensation. No signs of secondary infection. Scabbed, round circular ulcerations present. Neuro: Patient oriented x3, reports neuropathies to bilateral extremities, positive sensation with palpation Extremities: Normal to inspection, but presence of scabed ulcerations and varicose veins on bilateral lower extremities. + pedal pulses bilaterally, dorsalis pedis, no edema Results Plan The overall plan involves multiple referrals to specialists for comprehensive evaluation. A dermatology referral is initiated for the ulcerations, with nerve conduction studies planned to address neuropathic concerns. The patient will seek evaluation by a thoracic specialist for further assessment of lung nodules and engage with a urologist for prostate monitoring. Lifestyle advice targeting weight management is crucial to his venous insufficiency and overall health. Pending test results and follow-up assessments will provide further insight into management directions. Patient was informed and verbally consented to the use of an ambient scribe for clinic note documentation during this visit. Discussion Notes During the visit, we discussed the management of ulcerations by referring to dermatology for targeted evaluation and possible treatment options. Nerve conduction testing was highlighted to explore the patient's neuropathic symptoms. I advised the patient on the importance of follow-up with a thoracic specialist due to previous lung nodule findings and emphasized the need for monitoring and possible imaging updates. I informed him about the need to maintain cardiovascular and overall health through weight management given his obesity. Risks, benefits, and alternatives of these management plans were considered, with agreement obtained from the patient. Anticipation of ongoing monitoring and tests outcomes was discussed to ensure comprehensive care. Patient Instructions - Get nerve conduction testing done for neuropathy evaluation. - Attend all scheduled specialist appoin tments, including dermatology and thoracic. - Follow up with your urologist for pros cochran health check. - Monitor your weight and try to adopt h ealthier lifestyle habits. - Return for further evaluation if new s ymptoms develop. - Complete fasting labs as instructed. [facility] Medical History Fatty liver Personal history of nicotine dependence History of pulmonary embolism (~02/2022) Tubular adenoma of colon Mass of right adrenal gland Surgical History History of colon surgery History of transurethral resection of bladder tumor (TURBT) History of hernia repair History of fusion of cervical spine History of colonoscopy History of appendectomy History of shoulder surgery History of esophagogastroduodenoscopy (EGD) History of rectal polypectomy History of surgery of head Family History Mother Dementia Father Throat cancer Social History Housing: Apartment Alcohol intake: current Alcohol intake frequency: former alcohol drinker Alcohol type: beer and wine Patient Tobacco Use Status: Former Tobacco user Tobacco use type: Cigarette Years Smoked: > 17 yrs e-Cigarette/Vaping Use: Never Used Substance Use Type: Marijuana Current occupational status: retired Cognitive needs: No Hearing needs: No Vision needs: No Questionnaire PHQ-9 Over the last 2 weeks, how often have you been bothered by any of the following problems? 1. Little interest or pleasure in doing things: several days 2. Feeling down, depressed, or hopeless: not at all 3. Trouble falling or staying asleep, or sleeping too much: not at all 4. Feeling tired or having little energy: several days 5. Poor appetite or overeating: several days 6. Feeling bad about yourself - or that you are a failure or have let yourself or your family down: not at all 7. Trouble concentrating on things, such as reading the newspaper or watching television: several days 8. Moving or speaking so slowly that other people could have noticed. Or the opposite - being so fidgety or restless that you have been moving around a lot more than usual: several days 9. Thoughts that you would be better off or of hurting yourself in some way: not at all Total score: 5 Depression Screening Interpretation: Negative Depression Screening Done: Yes 60456 - PHQ-9 Billing: Yes Source: Developed by Drs. Zhen Taylor, Precious Pate, Ruddy Metcalf and colleagues, with an educational nikkie from [employer]. Thrive Questionnaire Date Thrive assessed: 08/20/24 I am a: Patient What is your living situation today?: I have a steady place to live Within the past 12 months, did the food you bought not last and you didn't have the money to get more?: Sometimes True Within the past 12 months, did you worry whether your food would run out before you got money to buy more?: Never true Do you have trouble paying for medicines?: No Do you have trouble getting transportation to medical appointments?: No Do you have trouble paying your heating and electricity bill?: No Do you have trouble taking care of your child, family member or friend?: No Do you have trouble with day-to-day activities such as bathing, preparing meals, shopping, managing finances, etc.?: No Are you currently unemployed and looking for a job?: No Are you interested in more education?: No Please select the resources that you would like help with: None Currently or been in a relationship where the following occur: No concerns reported THRIVE Score: 1 AUDIT C Alcohol Use Questionnaire (AUDIT-C) 1. How often do you have a drink containing alcohol?: 2-4 times a month 2. How many drinks containing alcohol do you have on a typical day when you are drinking?: 1 or 2 3. How often do you have six or more drinks on one occasion?: Never Total Score: 2 Score Reviewed/Action Taken: Yes JUNIOR-7 AMB Questionnaire JUNIOR-7 Date JUNIOR - 7 assessed: 08/20/24 Feeling nervous, anxious, or on edge: 1 = Several days Not being able to stop or control worryin = Several days Worrying too much about different things: 1 = Several days Trouble relaxin = Several days Being so restless that it is hard to sit still: 1 = Several days Becoming easily annoyed or irritable: 0 = Not at all Feeling afraid as if something awful might happen: 0 = Not at all Total JUNIOR-7 score (0-4 normal; 5-9 mild; 10-14 moderate; 15-21 severe): 5 Source: Developed by Drs. Zhen Taylor, Precious Pate, Ruddy Metcalf and colleagues, with an educational nikkie from [employer]. JUNIOR-7 Assessment Billing JUNIOR-7 Assessment Tool: JUNIOR-7 Assessment 50439 Physical exam (Primary Care) Vital Signs: Last Vital Signs Pulse 77 08/20/24 10:57 BP 120/80 08/20/24 10:57 Pulse Ox 97 08/20/24 10:57 Oxygen Delivery Method Room Air 08/20/24 10:57 BMI result Body Mass Index 30.4 Tobacco/Smoking Status: Tobacco use Status Tobacco use date assessed 08/20/24 08/20/24 11:00 Patient Tobacco Use Status Former Tobacco user 08/20/24 10:56 Tobacco use type Cigarette 08/20/24 10:56 e-Cigarette/Vaping Use Never Used 08/20/24 10:56 PHQ-9: PHQ-9 Score PHQ-9: Total score 5 08/20/24 11:01 Depression Screening Interpretation: Negative Thrive Assessment: Date of Thrive Assessment Date Thrive assessed 08/20/24 08/20/24 11:00 Currently or been in a relationship where the following occur: No concerns reported Coding Level of Care Code Est Pt Level 3 (84784) Est Pt Prev Care >65y(38611) Diagnoses Bilateral leg ulcer L97.919; L97.929 Pulmonary nodules R91.8 Neuropathy G62.9 Encounter for routine adult physical exam with abnormal findings Z00.01 Additional Codes JUNIOR-7 Assessment Billing - JUNIOR-7 Assessment Tool: JUNIOR-7 Assessment 92193 ([id number]) PHQ-9 - 86896 - PHQ-9 Billing: Yes ([id number]) Assessment & Plan Assessment & Plan (1) Bilateral leg ulcer: Code(s): L97.919 - Non-pressure chronic ulcer of unspecified part of right lower leg with unspecified severity; L97.929 - Non-pressure chronic ulcer of unspecified part of left lower leg with unspecified severity Category: Medical (2) Pulmonary nodules: Code(s): R91.8 - Other nonspecific abnormal finding of lung field Category: Medical (3) Neuropathy: Code(s): G62.9 - Polyneuropathy, unspecified Category: Medical (4) Encounter for routine adult physical exam with abnormal findings: Code(s): Z00.01 - Encounter for general adult medical examination with abnormal findings Category: Medical Plan . Orders: Orders NE electromyogram (EMG) Today G62.9 - Polyneuropathy, unspecified NE nerve conduction velocity Today G62.9 - Polyneuropathy, unspecified Referrals Dermatology Referral L97.919 - Non-pressure chronic ulcer of unspecified part of right lower leg with unspecified severity, L97.929 - Non-pressure chronic ulcer of unspecified part of left lower leg with unspecified severity Thoracic/General Surgery Referral R91.8 - Other nonspecific abnormal finding of lung field
[2024-08-20 10:57] VITALS: BP 120/80; PULSE 77; O2SAT 97; BMI 30.4
--- OUTSIDE RECORDS SUMMARY | 2024-08-20 11:52 | XMS_ITS ---
Author Organization [facility] Address [address] [place] [address] Care Team Providers Care Weight Reduction Specialist Name Role Phone Isaiah Weeks Primary Care Provider Unav ailNatalia Culver [phone] REASON FOR VISIT QMB Encounters Encounter Location Date Provider Diagnosis [address] [address] 05/07/2024 Natalia You Plan Of Treatment Next Appt Details Provider Name:Natalia madden, 08/26/2024 09:45:00 AM, [address] [place] [address], [phone], Progress Notes * Xavier BAPTISTE JrDOB:09/1954 (69 yo M)Acc No.[id number]:05/07/2024 Patient:?Xavier BAPTISTE r :1955???Age:69 Y???Sex:Male Address:[address] [facility], [address], [place] [address] * true * Date:? Generated for Printi ng/Fadionyg/eTransmitting on:?08/20/2024 11:52 AM EDT
--- OUTSIDE RECORDS SUMMARY | 2024-08-20 11:53 | XMS_ITS | Encounter Summary ---
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 Name Role Phone Isaiah Trevino NP Primary Care Provider + [phone] Encounter Details Date Type Department Care Team (Late st Contact Info) Description 07/25/2024 Lab Requisition [facility] - Main Lab [address] [facility] [place] [phone] Darren Lott MD [address] [place] [phone] Malignant neoplasm of overlapping sites of bladder ([facility]/HCC V24, CMS/HCC V28) Social History Tobacco Use Types Packs/Day Years Used Date Smoking Tobacco: Former Cigarettes 2 38 0 04/16/1967 - 04/16/2005 Smokeless Tobacco: Never Alcohol Use Standard Drinks/Week Comments No 0 (1 standard drink = 0.6 oz pur e alcohol) Sex and Gender Information Value Date Recorded Sex Assigned at Not on file Legal Sex Male 4:06 PM EST Gender Identity Not on file Sexual Orientation Not on file documented as of this encounter Plan of Treatment Not on file documented as of this encounter Procedures Procedure Name Priority Date/Time Associated Diagnosis Comments AP OUTSIDE CONSULT Routine 07/22/2024 12 :00 AM EDT Malignant neoplasm of overlapping sites of bladder (CMS/HCC V24, CMS/[facility] V28) documented in this encounter Results * Anatomic pathology outside consult (07/22/2024 12:00 AM EDT) Final Diagnosis A. Urine, Voided, ([id number]): Negative for high grade urothelial carcinoma. Scant cellularity Results of UroVysion fluorescence in situ hybridization (FISH) testing: CEP3: Normal CEP7: Normal CEP17: Normal LSI 9p21: Normal Interpretation: Normal profile Controls stained appropriately. Note: The results are intended as a screening device and should be interpreted in association with other clinical and pathological findings. 07/29/2024 4:34 PM EDT [facility] Clinical Information Malignant neoplasm of overlapping sites of bladder C67.8 Urine Cytology/FISH (now) 07/29/2024 4:34 PM EDT [facility] Gross Description A. Urine, Voided, ([id number]): Received one ThinPrep slide for cytology and one ThinPrep slide for UroVysion FISH 07/29/2024 4:34 PM EDT [facility] Disclaimer Unless otherwise specified, all tissue is 10% NB formalin fixed and paraffin embedded. Technical pathology services provided by [facility] at [address] [place] [address] [address], [place] [address] (CLIA #[id number]/Maryjo Ludwig MD, Insights Manager) 07/29/2024 4:34 PM EDT [facility] Tissue Urine specimen from urethra / Unknown 07/22/2024 07/25/2024 2:24 PM EDT us Darren Lott MD LAB PATHOLOGY ORDERABLES Final Result [facility] [address] [place] [address], documented in this encounter Visit Diagnoses Diagnosis Malignant neoplasm of overlapping sites of bladder (CMS/HCC V24, CMS/HCC V28) documented in this encounter Care Teams Window Air Conditioner Installer Relationship Specialty Start Date End Date [facility] [address] [facility] [place] P[facility] - General 06/07/23 documented as of this encounter
--- OUTSIDE RECORDS SUMMARY | 2024-08-20 11:53 | XMS_ITS | Patient Health Record ---
Author Organization [facility] Address [address] [place] [address] Care Team Providers Care Pharmacist In Charge Name Role Phone Isaiah Weeks Primary Care Provider Unav Natalia Garland Unavailable [phone] [place]teMarg[address] [place] Unavailable [phone] Allergies Allergen (clinical drug ingredient) Drug/Non Drug Allergy documented on EMR Reaction Allergy Type Onset Date Status codeine Codeine Unknown Drug Allergy Active morphine Morphine Unknown Drug Allergy Active Reason For Referral No Information Medications Medication SIG (Take, Route, Frequency, Duration) Notes Start Date End Date Status ARIPiprazole 5 MG TAKE 1 TABLET BY DORA TH EVERY DAY Oral for 90 Days Not-Taking Senna Active Cetirizine HCl Not-T aking Aspirin 81 MG 1 tablet Orally Once a day Active Omeprazole Active Fluticasone Propionate 50 MCG/ACT SPRAY 2 SPRAYS INTRANASALLY DAILY Nasal for 90 Days Active Escitalopram Oxalate 5 MG TAKE 1 TABLET BY MOUTH EVERY DAY Oral for 90 Days Active Gabapentin 300 MG 1 capsule Orally at bedtime Not-Taking Lexapro 10 MG 1 tablet Orally Once a day Active Abilify 10 MG 1 tablet Orally Once a day Active Social History Tobacco Use: Social History Observation Description Date Details (start date - stop date) Never Smoker NA - NA Tobacco Use/Smoking Question Answer Notes Are you a: nonsmoker Alcohol Screen Question Answer Notes Did you have a drink contain ing alcohol in the past year? Yes How often did you have a dri nk containing alcohol in the past year? Monthly or less (1 point) Points 1 Interpretation Negative Tobacco use other than smoking: Question Answer Notes Are you an other tobacco user? No Problems Problem Type SNOMED Code ICD Code Onset Dates Problem Status W/U Status Risk Notes Problem Plantar wart ([id number]) Plantar wart (B07.0) Active confirmed Problem Osteoarthritis of midtarsal joint of left foot ([id number] ) Osteoarthritis of midtarsal joint of left foot (M19.072) Active confirmed Vital Signs Blood pressure diastolic 63 mm Hg 04/22/2024 Height 5ft 9in in 04/22/2024 Blood pressure systolic 138 mm Hg 04/22/2024 Weight 194 lbs 04/22/2024 BMI 28.65 kg/m2 04/22/2024 Procedures Procedure Date Ordered Date Performed Result Body Sit e , H7191-MYIXM/INJECT, JOINT/BURSA 03/05/2024 N/A Encounters Encounter Location Date Provider Diagnosis [address] [address] 11/23/2023 Marguerite Theodore Plantar wart B07.0 ; Osteoarthritis of midtarsal joint of left foot M19.072 ; Right foot pain M79.671 ; Left foot pain M79.672 ; Pain in left ankle and joints of left foot M25.572 ; Bursitis of left foot M77.52 ; Metatarsalgia of left foot M77.42 and Metatarsalgia, right foot M77.[address] [facility] [address] 01/22/2024 Natalia You Plantar wart B07.0 ; Osteoarthritis of midtarsal joint of left foot M19.072 ; Right foot pain M79.671 ; Left foot pain M79.672 ; Pain in left ankle and joints of left foot M25.572 ; Bursitis of left foot M77.52 ; Metatarsalgia of left foot M77.42 and Metatarsalgia, right foot M77.[address] [facility] [address] 03/05/2024 Natalia You Plantar wart B07.0 ; Osteoarthritis of midtarsal joint of left foot M19.072 ; Right foot pain M79.671 ; Left foot pain M79.672 ; Pain in left ankle and joints of left foot M25.572 ; Bursitis of left foot M77.52 ; Metatarsalgia of left foot M77.42 and Peripheral neuropathic pain M79.2 [facility] [address] [address] 04/22/2024 Natalia Mortonaker Plantar wart B07.0 ; Right foot pain M79.671 ; Osteoarthritis of midtarsal joint of left foot M19.072 ; Left foot pain M79.672 ; Bursitis of left foot M77.52 and Metatarsalgia of left foot M77.[address] [facility] [address] 08/22/2023 [facility] [address] 11/23/[address] [address] 11/23/[address] [address] 02/20/2024 Natalia You [address] [address] 04/10/2024 Natalia You [address] [address] 05/07/2024 Natalia You Assessments Encounter Date Diagnosis (ICD Code) Assessment Notes Treatment Notes Treatment Clinical Notes Section Notes 11/23/2023 Plantar wart (ICD-10 - B07.0) 11/23/2023 Osteoarthritis of midtarsal joint of left foot (ICD-10 - M19.072) 01/22/2024 Plantar wart (ICD-10 - B07.0) 03/05/2024 Plantar wart (ICD-10 - B07.0) 04/22/2024 Plantar wart (ICD-10 - B07.0) 03/05/2024 Osteoarthritis of midtarsal joint of left foot (ICD-10 - M19.072) 04/22/2024 Right foot pain (ICD-10 - M79.671) 01/22/2024 Osteoarthritis of midtarsal joint of left foot (ICD-10 - M19.072) 03/05/2024 Right foot pain (ICD-10 - M79.671) 11/23/2023 Right foot pain (ICD-10 - M79.671) 11/23/2023 Left foot pain (ICD-10 - M79.672) 03/05/2024 Left foot pain (ICD-10 - M79.672) 01/22/2024 Right foot pain (ICD-10 - M79.671) 04/22/2024 Osteoarthritis of midtarsal joint of left foot (ICD-10 - M19.072) 04/22/2024 Left foot pain (ICD-10 - M79.672) 04/22/2024 Bursitis of left foot (ICD-10 - M77.52) 01/22/2024 Left foot pain (ICD-10 - M79.672) 03/05/2024 Pain in left ankle and joints of left foot (ICD-10 - M25.572) 11/23/2023 Pain in left ankle and joints of left foot (ICD-10 - M25.572) 11/23/2023 Bursitis of left foot (ICD-10 - M77.52) 03/05/2024 Bursitis of left foot (ICD-10 - M77.52) 01/22/2024 Pain in left ankle and joints of left foot (ICD-10 - M25.572) 04/22/2024 Metatarsalgia of left foot (ICD-10 - M77.42) 01/22/2024 Bursitis of left foot (ICD-10 - M77.52) 03/05/2024 Metatarsalgia of left foot (ICD-10 - M77.42) 11/23/2023 Metatarsalgia of left foot (ICD-10 - M77.42) 11/23/2023 Metatarsalgia, right foot (ICD-10 - M77.41) 01/22/2024 Metatarsalgia of left foot (ICD-10 - M77.42) 03/05/2024 Peripheral neuropathic pain (ICD-10 - M79.2) 01/22/2024 Metatarsalgia, right foot (ICD-10 - M77.41) 03/05/2024 Other Patient Educated with: RICE THERAPY.pdf (RICE THERAPY.pdf) Patient Educated with: INJECTIONTHER APY.pdf (INJECTIONTHE RAPY.pdf) Patient Educated with: RICE THERAPY.pdf (RICE THERAPY.pdf) Patient Educated with: INJECTIONTHER APY.pdf (INJECTIONTHE RAPY.pdf) Plan Of Treatment Pending Test Test Name Order Date X ray : Foot, left 3V 11/23/2023 X ray : Foot, right 3V 11/23/2023 61377, L7499-QEZGS/INJECT, JOINT/BURSA 1 05/05/2023 Next Appt Details Provider Name:Natalia Curtis chano, 08/26/2024 09:45:00 AM, [address] [facility] [facility] [address], [place], [address], Insurance Providers Payer Name Payer Address Payer Phone Subscriber Number Group Number Insured Name Patient Relationship to Insured Coverage Start Date Coverage End Date [employer] [place] [address] [id number] Xavier Baptiste Self - patient is the insured Medical (General) History Medical History History ICD Code Anxiety Arthritis asthma Cancer Depression Headaches/Migraines Psoriasis/eczema Chicken pox 114 stitches in head cecum lymph nodes appendix Surgical History Surgery Date(Month/Year) shoulder surgery-right appendectomy 3 mesh hernias cervical fusion, C4, C5, C6
--- OUTSIDE RECORDS SUMMARY | 2024-08-20 11:53 | XMS_ITS | Clinical Summary ---
Author Organization [facility] Address [address] [place] [address] Care Team Providers Care Commercial Escrow Assistant Name Role Phone Rico Longoria MD Primary Care Provider [phone] Allergies Active Allergy Reactions Criticality Noted Date Comments Morphine Nausea And Vomiting 03/30/2017 Medications Medication Sig Dispensed Refills Start Date End Date Status fluticasone (FLONASE) 50 MCG/ACT nasal spray spray or apply 100 mcg inside Nose. 0 08/16/2017 Active omeprazole (PriLOSEC) 20 MG capsule TAKE 1 CAPSULE BY MOUTH EVERY DAY 0 10/28/2018 Active oxyCODONE (ROXICODONE) 5 MG immediate release tablet TAKE 1 TAB BY MOUTH EVERY 8 HRS NEEDED FOR PAIN UP TO 7 DAYS. CAN CAUSE DROWSINESS, DO NOT DRIVE 0 01/29/2019 Active Active Problems No known active problems Family History Medical History Relation Name Comments Cancer Father Relation Name Status Comments Father Social History Tobacco Use Types Packs/Day Years Used Date Smoking Tobacco: Never Assessed Sex and Gender Information Value Date Recorded Sex Assigned at Not on file Gender Identity Not on file Sexual Orientation Not on file Last Filed Vital Signs Vital Sign Reading Time Taken Comments Blood Pressure - - Pulse - - Temperature - - Respiratory Rate - - Oxygen Saturation - - Inhaled Oxygen Concentration - - Weight 86.2 kg (190 lb) 02/17/2019 11:39 AM EST Height 177.8 cm (5' 10 ) 02/17/2019 11:39 AM EST Body Mass Index 27.26 02/17/2019 11:39 AM EST Plan of Treatment Health Maintenance Due Date Last Done Comments Hepatitis C Screening 1955 COVID-19 Vaccine (#1) 1955 Depression Screening 1967 BMI Counseling 1973 Preventative Health Evaluation 1973 Colon Cancer Screening (Colonoscopy) 01/20/2000 Shingrix-Zoster Vaccine (1 of 2) 2005 Fall Risk Assessment 01/20/2020 Pneumococcal Vaccine (2 of 2 - PCV) 01/20/2020 08/26/2014 Influenza Vaccine (#1) 2023 DTap / Tdap / Td (2 - Td or Tdap) 08/26/2024 015 RSV Adult > 60+ Yrs or Pregn ant (1 - 1-dose 75+ series) 2030 Hepatitis B Vaccines Aged Out No long er eligible based on patient's age to complete this topic RSV Ped < 20 months Aged Out No longe r eligible based on patient's age to complete this topic Care Teams Commercial Escrow Assistant Relationship Specialty Start Date End Date Rico Longoria MD [address] [place] [id number] PCP - General Internal Medicine 01/24/19
--- OUTSIDE RECORDS SUMMARY | 2024-08-20 11:53 | XMS_ITS | Clinical Summary ---
Author Organization [facility] Address [address] [place] [address] Phone Care Team Providers Care Carry In Worker Name Role Phone Isaiah Trevino NP Primary Care Provider Allergies Active Allergy Reactions Criticality Noted Date Comments Morphine Nausea And Vomiting 03/30/2017 Medications ARIPiprazole (ABILIFY) 2 mg tablet Take 5 mg by mouth daily. Active IBUPROFEN ORAL Take by mouth. Active gabapentin (NEURONTIN) 300 mg capsule 05/22/2023 Active fluticasone propionate (FLONASE) 50 mcg/actuation nasal spray SPRAY 2 SPRAYS INTO EACH NOSTRIL EVERY DAY 10/26/2020 Active betamethasone, augmented, (DIPROLENE-AF) 0.05 % cream APPLY TO ITCHY SPOTS TWICE A DAY. 10/06/2022 Active aspirin ([place]alore) 81 mg capsule Take by mouth. Active naproxen (NAPROSYN) 500 mg tablet Take 1 Tab by mouth 2 times daily as needed for Pain. 09/30/2019 Active omeprazole (PriLOSEC) [address] capsule TAKE 1 CAPSULE BY MOUTH EVERY DAY 10/28/2018 Active Active Problems Problem Noted Date Diagnosed Date Lung nodule 07/03/2018 Overview (01/30/2024): [facility] LDCT program following Last Assessment & Plan: 68-year-old male who I have followed at [facility] for a cluster of nodules in the right middle lobe in the setting of a history of bladder cancer and appendiceal cancer/polyp. He is a non-smoker but sometimes smokes marijuana. His most recent CT scan was done at [facility] on 05/17/2023 which compared with previous CAT scans shows the cluster of nodules in the right middle lobe to be more linear now although still present. I discussed the findings on his CAT scan compared with previous with him in detail as described in the HPI. We discussed pulmonary nodules in general and how their size, shape, and foreign exchange student coordinator time affect her level of suspicion for malignancy. Options we discussed were for continued observation versus needle biopsy versus surgical wedge resection possible lobectomy. Discussing the risks and benefits of these options he decided on continued observation which will be a 6-month follow-up CT scan of the chest and a visit with me after that. Assessment & Plan (03/21/2024 2:20 PM EST): 69-year-old male who I have followed at [facility] for a cluster of nodules in the right middle lobe in the setting of a history of bladder cancer and appendiceal cancer/polyp. He is a non-smoker but sometimes smokes marijuana. A CT scan was done at [facility] on 05/17/2023 which compared with previous CAT scans shows the cluster of nodules in the right middle lobe to be more linear now although still present. I discussed the findings on his CAT scan compared with previous with him in detail as described in the HPI which now shows stability of this area. We discussed pulmonary nodules in general and how their size, shape, and foreign exchange student coordinator time affect her level of suspicion for malignancy. Options we discussed were for continued observation versus needle biopsy versus surgical wedge resection possible lobectomy. Discussing the risks and benefits of these options he decided on continued observation which will be a 1 year follow-up CT scan of the chest and a visit in this office after that. 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 - Main Lab [address] [facility] [place] [address] Darren Lott MD Malignant neoplasm of overlapping sites of bladder ([facility] V24, [facility] V28) from Last 3 Months Immunizations Name Administration Dates Next Due Pneumococcal polysaccharide 23 valent (Pneumovax 23) 2yo and older 08/26/2014 Tdap Tetanus diptheria acell ular pertussis (Boostrix; Adacel) 7yo and older 08/26/2014 Surgical History Surgery Date Site/Laterality Comments NECK SURGERY PROCEDURE: HISTORICAL NECK SURGERY; COMMENT: cervical fusion SHOULDER SURGERY Right PROCEDURE: HISTORICAL SHOULDER SURGERY HERNIA REPAIR PROCEDURE: HISTORICAL HERNIA REPAIR/UMB COLONOSCOPY 2007 PROCEDURE: HISTORICAL COLONOSCOPY; COMMENT: [facility] at [facility] [place] 6 polyps. COLONOSCOPY 01/25/2016 PROCEDURE: HISTORICAL COLONOSCOPY; COMMENT: 2 cm flat polyp involving the appendix; random bx: Tubulovillous adenoma and random biopsies were normal. UPPER GASTROINTESTINAL ENDOSCOPY 01/25/2016 PROCEDURE: [place] UPPER GI ENDOSCOPY PERFORMED; COMMENT: Visually normal; duodenal biopsies: Suggestive of celiac disease. COLONOSCOPY 05/01/2017 PROCEDURE: HISTORICAL COLONOSCOPY; COMMENT: 7 mm sigmoid colon polyp; sessile polyp involving the appendix: sigmoid=tubular adenoma. appendix=tubulovillous. OTHER SURGICAL HISTORY 06/2017 PROCEDURE: [place] COLECTOMY PARTIAL W/ANASTOMOSIS; COMMENT: for tubulovillous adenmoa OTHER SURGICAL HISTORY 10/24/2017 PROCEDURE: ---- OTHER ----; COMMENT: incisional wall hernia repair Medical History Medical History Date Comments COPD (chronic obstructive pu lmonary disease) ([facility] V24, [facility] V28) 07/23/2014 DX:COPD (chronic o bstructive pulmonary disease) ([facility]) Anxiety 07/23/2014 DX:Anxiety Left foot pain 08/26/2014 DX:Left foot ash n Bladder cancer ([facility] V24, [facility] V28) DX:Bladder cancer (HCC) History of colon cancer DX:Histo ry of colon cancer Mononeuropathy DX:Mononeuropath y; COMMENT: bilateral feet Family History Medical History Relation Name Comments Lung cancer Father Throat cancer Father Dementia Mother Ulcerative colitis Mother Other: lupus Sister Relation Name Status Comments Father Mother Sister Social History Tobacco Use Types Packs/Day Years Used Date Smoking Tobacco: Former Cigarettes 2 38 0 04/16/1967 - 04/16/2005 Smokeless Tobacco: Never Tobacco Cessation:Counseling Given: Not Answered Alcohol Use Standard Drinks/Week Comments No 0 (1 standard drink = 0.6 oz pur e alcohol) Sex and Gender Information Value Date Recorded Sex Assigned at Not on file Legal Sex Male 4:06 PM EST Gender Identity Not on file Sexual Orientation Not on file Obstetrics History Last Filed Vital Signs Vital Sign Reading Time Taken Comments Blood Pressure 123/86 03/20/2024 3:17 PM EST Pulse 60 03/20/2024 3:17 PM EST Temperature 37.1 ??C (98.8 ??F) 03/20/2024 3:17 PM ES T Respiratory Rate 18 03/20/2024 3:17 PM EST Oxygen Saturation 96% 03/20/2024 3:17 PM EST Inhaled Oxygen Concentration - - Weight 90.9 kg (200 lb 6.4 oz) 03/20/2024 3:17 P M EST Height 176.5 cm (5' 9.5 ) 03/20/2024 3:17 PM EST Body Mass Index 29.17 03/20/2024 3:17 PM EST Plan of Treatment Health Maintenance Due Date Last Done Comments Zoster Vaccines (1 of 2) 1974 RSV Immunization Adult Patients (1 - Risk 60-74 years 1-dose series) 2015 Pneumococcal Vaccine: 50+ Years (2 of 2 - PCV) 08/27/2015 08/26/2014 COVID-19 Vaccine (3 - Modern a risk series) 08/27/2020 07/30/2020, 07/02/2020 Abdominal Aortic Aneurysm (AAA) Screen 03/15/2022 Depression Screening 03/15/2022 Falls Risk Assessment 03/15/2022 Medicare Annual Wellness Visit 03/15/2022 Social Influencers of Health Screening 03/15/2022 Hypertension/CHF/CAD Annual BMP Blood Test 02/22/2024 09/30/2022 Cholesterol Screening (Lipid Panel) 06/18/2024 06/19/2019 Influenza Vaccine (Season Ended) 2024 Colorectal Cancer Screening: Colonoscopy 05/01/2027 05/01/2017 DTaP,Tdap,and Td Vaccines (3 - Td or Tdap) 11/26/2029 11/27/2019, 08/26/2014 Hepatitis C Screening Completed 02/28/2016 HIB Vaccines Aged Out No longer eligi ble based on patient's age to complete this topic HPV Vaccines Aged Out No longer eligi ble based on patient's age to complete this topic Hepatitis A Vaccines Aged Out No long er eligible based on patient's age to complete this topic Hepatitis B Vaccines Aged Out No long er eligible based on patient's age to complete this topic IPV Vaccines Aged Out No longer eligi ble based on patient's age to complete this topic MMR Vaccines Aged Out No longer eligi ble based on patient's age to complete this topic Meningococcal ACWY Vaccine Aged Out N o longer eligible based on patient's age to complete this topic Meningococcal B Vaccine Aged Out No l onger eligible based on patient's age to complete this topic RSV Immunization Patients Under 20 months Aged Out No longer eligible b ased on patient's age to complete this topic Varicella Vaccines Aged Out No longer eligible based on patient's age to complete this topic Procedures Procedure Name Priority Date/Time Associated Diagnosis Comments AP OUTSIDE CONSULT Routine 07/22/2024 12 :00 AM EDT Malignant neoplasm of overlapping sites of bladder ([facility]/HCC V24, [facility]/HCC V28) ANNUAL BMP BLOOD TEST Routine 09/30/2022 LIPID PANEL Routine 06/19/2019 COLONOSCOPY Routine 05/01/2017 HEPATITIS C SCREENING Routine 02/28/2016 from Last 3 Months or Most Recently Relevant to Health Maintenance Results * Anatomic pathology outside consult (07/22/2024 12:00 AM EDT) Final Diagnosis A. Urine, Voided, ([id number]): Negative for high grade urothelial carcinoma. Scant cellularity Results of [employer] fluorescence in situ hybridization (FISH) testing: CEP3: Normal CEP7: Normal CEP17: Normal LSI 9p21: Normal Interpretation: Normal profile Controls stained appropriately. Note: The results are intended as a screening device and should be interpreted in association with other clinical and pathological findings. 07/29/2024 4:34 PM EDT [facility] Clinical Information Malignant neoplasm of overlapping sites of bladder C67.8 Urine Cytology/FISH (now) 07/29/2024 4:34 PM EDT [facility] Gross Description A. Urine, Voided, ([id number]): Received one ThinPrep slide for cytology and one ThinPrep slide for [employer] FISH 07/29/2024 4:34 PM EDT [facility] Disclaimer Unless otherwise specified, all tissue is 10% NB formalin fixed and paraffin embedded. Technical pathology services provided by [facility] at [address] [place] [address] [address], [place] [address] (CLIA #[id number]/Maryjo Luwdig MD, Tying Machine Operator) 07/29/2024 4:34 PM EDT [facility] Tissue Urine specimen from urethra / Unknown 07/22/2024 07/25/2024 2:24 PM EDT Darren Lott MD LAB PATHOLOGY ORDERABLES Final Result [facility] [address] [place] [address], * Annual BMP Blood Test (09/30/2022) Annual BMP Blood Test Abstracted Historical Provider HEALTH MAINTENANCE Final Result * Lipid panel (06/19/2019) [facility] LDL/HDL Ratio 2 0 - 4 Triglycerides 103 0 - 150 mg/dL Cholesterol 90 0 - 200 mg/dL HDL 40 >=40 mg/dL LDL Cholesterol 30 0 - 100 mg/dL Blood Venous blood specimen / Unknown Historical Provider LAB BLOOD ORDERABLES Karen l Result * Colonoscopy (05/01/2017) [facility] Colonoscopy No interpreta tion,abstr acted Anatomical Region Laterality Modality Other Historical Provider HEALTH MAINTENANCE Final Result * Hepatitis C Screening (02/28/2016) [facility] Hepatitis C Screening Abstracted Historical Provider HEALTH MAINTENANCE Final Result from Last 3 Months or Most Recently Relevant to Health Maintenance Insurance [place]ICA[place] MEDIC[place] ADVANTAGE Care Teams Carry In Worker Relationship Specialty Start Date End Date Isaiah Trevino NP [address] [facility] [place], [place] PCP - General 06/07/23
--- OUTSIDE RECORDS SUMMARY | 2024-08-20 11:53 | XMS_ITS ---
[facility] Address [address] [place] [address] Care Team Providers Care Industrial Controller Name Role Phone Isaiah Weeks Primary Care Provider Unaaddie noah YouNatalia Unavailable [phone] Allergies Allergen (clinical drug ingredient) Drug/Non Drug Allergy documented on EMR Reaction Allergy Type Onset Date Status codeine Codeine Unknown Drug Allergy Active morphine Morphine Unknown Drug Allergy Active REASON FOR VISIT Wart(s), Foot pain Medications Medication SIG (Take, Route, Frequency, Duration) Notes Start Date End Date Status ARIPiprazole 5 MG TAKE 1 TABLET BY DORA TH EVERY DAY Oral for 90 Days Not-Taking Abilify 10 MG 1 tablet Orally Once a day Active Lexapro 10 MG 1 tablet Orally Once a day Active Gabapentin 300 MG 1 capsule Orally at bedtime Not-Taking Escitalopram Oxalate 5 MG TAKE 1 TABLET BY MOUTH EVERY DAY Oral for 90 Days Active Aspirin 81 MG 1 tablet Orally Once a day Active Cetirizine HCl Not-T aking Senna Active Fluticasone Propionate 50 MCG/ACT SPRAY 2 SPRAYS INTRANASALLY DAILY Nasal for 90 Days Active Omeprazole Active Social History Tobacco Use: Social History [...] Are you an other tobacco user? 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 ; Left foot pain M79.672 ; Bursitis of left foot M77.52 and Metatarsalgia of left foot M77.42 Assessments Encounter Date Diagnosis (ICD Code) Assessment Notes Treatment Notes Treatment Clinical Notes Section Notes 04/22/2024 Plantar wart (ICD-10 - B07.0) 04/22/2024 Right foot pain (ICD-10 - M79.671) 04/22/2024 Osteoarthritis of midtarsal joint of left foot (ICD-10 - M19.072) 04/22/2024 Left foot pain (ICD-10 - M79.672) 04/22/2024 Bursitis of left foot (ICD-10 - M77.52) 04/22/2024 Metatarsalgia of left foot (ICD-10 - M77.42) Plan Of Treatment Next Appt Details Follow Up: 2 Weeks, Reason: Provider Name:Natalia madden, 08/26/2024 09:45:00 AM, [address] [facility], [place] [address], [place], [address], Procedure Notes * Category Sub-Category Detail Notes Wart Treatment Procedure Verrucae were de brided to pin-point bleeding margins with sterile 15 surgical blade, silver nitrate chemocautery applied, recomm. immune-boosting meds such as zinc, recomm. follow up with topical chemosurgical agents , recomm. Wartstick 40 percent Salicylic acid application under occlusion as directed Progress Notes * Xavier BAPTISTE JrDOB:09/1954 (69 yo M)Acc No.[id number]:04/22/2024 Progress Notes Patient:?Xavier BAPTISTE Provider:?Natalia You DPM :1955???Age:69 Y???Sex:Male Eric e:04/22/2024 Address:[address] [place] [address], [address], [place], [id number] Pcp:LIDIA Wood Subjective: * Chief Complaints: * ???Wart(s)Foot pain * HPI: ???Skin problems:?Pt States PCP Visit: ?DATE?01/15/2024 ???Foot Pain:?Nature:?aching, stiffness, swelling, throbbing.?Location:?Great toe joint, LEFT.?Duration:?several years.?Course:?improved.?Treatments:?cortisone injection x1 to left foot last visit.?Severity/Quality:?Pre-injection procedure pain assessment - ( 8 ) out of 10.?Misc:?Feels significantly better to left first MPJ since injection. Has not had pain in this joint since last visit.? * ROS:?General/Constitutional:?Nausea?denies.?Vomiting?denies.?Hunger Thirst?denies.?Loss appetite?denies.?Chills?denies.?Fatigue?denies.?Fever?denies.?Night Sweats?denies.?Unexplained weight loss?denies.?Unexplained weight gain?denies.?HEENTM:?Dentures?denies.?Dizziness?denies.?Glasses/contacts?admits.?Retinopathy?de nies.?Blurred/double vision?denies.?TMJ?denies.?Discharge/drainage?denies.?Implants?denies.?Sore throat?denies.?Dental implants?denies.?Hard of hearing ?denies.?Difficulty chewing/swallowing/speaking?denies.?Nose bleeds?denies.?Sore mouth?denies.?Respiratory:?On Oxygen?denies.?Pneumonia/pleurisy?denies.?Bronchitis?denies.?Emphysema?denies.?C oughing?denies.?Cough blood?denies.?Shortness of breath?denies.?Wheezing?denies.?Cardiovascular:?Pacemaker?denies.?MVP?denies.?WPW?denies.?CHF?denies.?Heart attack?denies.?Septal defect?denies.?Rapid beat?denies.?Chest pain ?denies.?Atrial Fib.?denies.?Murmur/Palpitations?denies.?Gastrointestinal:?Hemorrhoids?denies.?Stomach/Abdominal pain?denies.?Dark blood stool?denies.?Irritable bowel ?denies.?Constipation?denies.?Diarrhea?denies.?Hematology:?Swelling?denies.?Clots?denies.?Varicose Veins?denies.?Bruising?denies.?Bleeding problem?denies.?Genitourinary:?Blood urine?denies.?Frequent/Painfu/urination/bladder control?denies.?Kidney stones?denies.?Infection (UTI)?denies.?Nephropathy?denies.?sex trans dis (STD)?denies.?Prostate?denies.?Musculoskeletal:?Hammertoes?denies.?Bunions?denies.?Back Pain?denies.?Muscle Cramps/ Resting?denies.?Muscle cramps / walking?denies.?Generalized aches and pains?denies.?Weakness?denies.?Integ.:?Thomas?denies.?Scars?denies.?Corns/calluses?denies.?Ingrown nails?denies.?Painful nails?denies.?Open Sores?denies.?Rashes?denies.?Neurologic:?Difficulty sleeping?denies.?Brain disorder?denies.?Numbness?denies.?Balance trouble?denies.?Confusion?denies.?Fainting/blackouts?denies.?Tingling?denies.?Tr emors?denies.? * Medical History:? * Surgical History:?shoulder s urgery-right appendectomy 3 mesh hernias cervical fusion, C4, C5, C6 * Hospitalization/Major Diagno stic Procedure:?No Hospitalization History. * Family History:?Non-Contribu tory.? * Social History:?Tobacco Use:?Tobacco Use/Smoking?Are you a:?nonsmoker ?Tobacco use other than smoking?Are you an other tobacco user??No ???Drugs/Alcohol:?Drugs?Have you used drugs other than those for medical reasons in the past 12 months??Yes ?Marijuana??Yes ?Alcohol Screen?Did you have a drink containing alcohol in the past year??Yes ?How often did you have a drink containing alcohol in the past year??Monthly or less (1 point) ?Points?1 ?Interpretation?Negative ???Miscellaneous:?Caffeine: yes, frequency:, 3-5 cups per day. ?Children: yes. ?Exercise: no. ?Marital status: . ?Occupation: Retired. * Medications:?TakingSenna Asp irin 81 MG Tablet Chewable 1 tablet Orally Once a day Omeprazole Fluticasone Propionate 50 MCG/ACT Suspension SPRAY 2 SPRAYS INTRANASALLY DAILY Nasal Escitalopram Oxalate 5 MG Tablet TAKE 1 TABLET BY MOUTH EVERY DAY Oral Lexapro 10 MG Tablet 1 tablet Orally Once a day Abilify 10 MG Tablet 1 tablet Orally Once a day Taking Senna Taking Aspirin 81 MG Tablet Chewable 1 tablet Orally Once a day Taking Omeprazole Taking Fluticasone Propionate 50 MCG/ACT Suspension SPRAY 2 SPRAYS INTRANASALLY DAILY Nasal Taking Escitalopram Oxalate 5 MG Tablet TAKE 1 TABLET BY MOUTH EVERY DAY Oral Taking Lexapro 10 MG Tablet 1 tablet Orally Once a day Taking Abilify 10 MG Tablet 1 tablet Orally Once a day Not-Taking/PRNCetirizine HCl Gabapentin 300 MG Capsule 1 capsule Orally at bedtime ARIPiprazole 5 MG Tablet TAKE 1 TABLET BY MOUTH EVERY DAY Oral Medication List reviewed and reconciled with the patientNot-Taking/PRN Cetirizine HCl Not-Taking/PRN Gabapentin 300 MG Capsule 1 capsule Orally at bedtime Not-Taking/PRN ARIPiprazole 5 MG Tablet TAKE 1 TABLET BY MOUTH EVERY DAY Oral Medication List reviewed and reconciled with the patient * Allergies:?Morphine: Allergy Codeine: Allergyyes[Allergies Verified] Objective: * Vitals:?Ht: 5ft 9in, Wt:194, BMI:28.65, Shoe size: 11, BP:138/63mm Hg, Ht-cm: 175.26 cm, Wt-k kg. * Examination: ???General Examination: ?GENERAL APPEARANCE:?Reveals a pleasant, alert, well nourished, well- developed, well hydrated individual, who demonstrates proper attention to hygiene/body habitus, and is in no acute distress, Pt serves as own historian for office visit today.?ORIENTED:?person, place, and time.?Dermatologic: ?SKIN FINDINGS:?Skin exam reveals Keratotic lesion(s) located at , SUB MTH (s) , 3 , B/L.?VERRUCA:?Reveals Multiple ( 2 ), multi-loculated , mosaic-patterned, round, raised, flat-topped, petechial bleeding papule(s), with cauliflower appearance and interruption of skin lines, with pain to lateral compression, and size estimated at 3 mm diameter , plantar Forefoot , B/L.?Neurological: ?SENSORY:?Neurological exam reveals intact sensorium, pain sensation normal, vibration sensation diminished.?5.07 monofilament test performed at plantar aspects of 5 varied sites per foot shows sensation.?TINEL'S COMPRESSION:? Negative, Medial dorsal cutaneous nerve distribution, Intermediate dorsal cutaneous nerve distribution, Deep peroneal nerve distribution, Left , Negative tarsal tunnel, sidney pedis, and medial calcaneal nerves.?Orthopedic: ?MUSCLE STRENGTH:?5/5 all groups in a symmetrical fashion, B/L.?FOOT MORPHOLOGY:?significantly Prominent, painful 1st Met-Cuneiform joint without inflammation, LEFT Range of motion of the first tarsometatarsal joint is reduced without pain with attempted passive range of motion. Pain to navicular- medial cuneiform joint with range of motion. Pain with 1st MPJ range of motion, LEFT.?MPJ PATHOLOGY:?NO LONGER, MPJ pain with ROM, 1st, NO LONGER?Pain, swelling, and inflammation to dorsal MPJ(s) 1st, LEFT foot.?Vascular: ?DP PULSES (B):?1/4, B/L.?PT PULSES (B):?1/4, B/L.?CAPILLARY FILL TIME:?immediate, all digits, B/L.?TROPHIC CONDITION-TEXTURE/ELASTICITY/TURGOR/HAIR GROWTH (B):?normal, B/L.?TEMPERTURE GRADIENT (C):?normal, warm to cool, proximal to distal, B/L, B/L.?PIGMENTATION:?normal, B/L.? Assessment: * Assessment: 1.?Plantar wart - B07.0???2. 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 Plan: * Treatment: * Procedures:?Wart Treatment:?Procedure?Verrucae were debrided to pin-point bleeding margins with sterile 15 surgical blade, silver nitrate chemocautery applied, recomm. immune-boosting meds such as zinc, recomm. follow up with topical chemosurgical agents , recomm. Wartstick 40 percent Salicylic acid application under occlusion as directed.? * Procedure Codes:?80783 Wart Destruction, 1-14, Modifiers: XS * Preventive Medicine:? ??Counseling:?Discussion:?-12: Office or other outpatient visit for the evaluation and management of an established patient, which required a medically appropriate history and/or examination and STRAIGHTFORWARD level of MEDICAL DECISION MAKING, 1 SELF-LIMITED OR MINOR PROBLEM, MINIMAL- NO AMOUNT/COMPLEXITY OF DATA TO BE REVIEWED/ANALYZED, AND MINIMAL RISK OF COMPLICATION/MORBIDITY. The visit on the day of the encounter encompassed interpreting the data and educating the patient as to the nature of their condition, treatment options available according to their individual PMH, meds, allergies, and overall health/living conditions, as well as any potential risks or complications that may occur from a failure to adhere to, and participate in, the recommended course of therapy. The discussion included a complete verbal, and/or written explanation of the examination results, any x-rays taken, the proposed diagnosis, and outline of the treatment plan. A schedule for future care needs was also explained. The patient verbalized an understanding of the instructions at this time and agreed to be an active participant in their treatment. If the patient should think of any questions or concerns after the visit, I have encouraged the patient to call the office.?Metatarsalgea:?Given recent success with treatment will continue current treatment plan.? * Follow Up:?2 Weeks * Images: * Sign off status: Completed true * Provider:?Natalia You DPM Date:?0 04/22/2024 Generated for Chino leary/Shoaib/Panchito on:?08/20/2024 11:52 AM EDT History and Physical Notes * HPI (History of Present Illness) Category Sub-Category Detail Notes Category Not es Skin problems Pt States PCP Visit: DATE: 01/15/2024 Foot Pain Nature: aching, stiffnes s, swelling, throbbing Location: Great toe joint, LEF T Duration: several years Course: improved Treatments: cortisone injection x1 to left foot last visit Severity/Quality: Pre-injection proced ure pain assessment - ( 8 ) out of 10 Misc: Feels significantly better to left first MPJ since injection. Has not had pain in this joint since last visit Examination Category Sub-Category Detail Notes Category Not es Neurological SENSORY: Neurological exa m reveals intact sensorium, pain sensation normal, vibration sensation diminished. 5.07 monofilament test performed at plantar aspects of 5 varied sites per foot shows sensation TINEL'S COMPRESSION: Negative, Medial do rsal cutaneous nerve distribution, Intermediate dorsal cutaneous nerve distribution, Deep peroneal nerve distribution, Left , Negative tarsal tunnel, sidney pedis, and medial calcaneal nerves Dermatologic SKIN FINDINGS: Skin exam reveal s Keratotic lesion(s) located at , SUB MTH (s) , 3 , B/L VERRUCA: Reveals Multiple ( 2 ), multi-loculated , mosaic-patterned, round, raised, flat-topped, petechial bleeding papule(s), with cauliflower appearance and interruption of skin lines, with pain to lateral compression, and size estimated at 3 mm diameter , plantar Forefoot , B/L Orthopedic FOOT MORPHOLOGY: significantly P rominent, painful 1st Met-Cuneiform joint without inflammation, LEFTRange of motion of the first tarsometatarsal joint is reduced without pain with attempted passive range of motion. Pain to navicular- medial cuneiform joint with range of motion. Pain with 1st MPJ range of motion, LEFT MPJ PATHOLOGY: NO LONGER, MPJ pain with ROM, 1st, NO LONGER Pain, swelling, and inflammation to dorsal MPJ(s) 1st, LEFT foot MUSCLE STRENGTH: 5/5 all groups in a symmetrical fashion, B/L General Examination GENERAL APPEARANCE: Reveals a pleasant, alert, well nourished, well-developed, well hydrated individual, who demonstrates proper attention to hygiene/body habitus, and is in no acute distress, Pt serves as own historian for office visit today ORIENTED: person, place, and t [place] [facility] DP PULSES (B): 04/19, B/L PT PULSES (B): 1/4, B/L CAPILLARY FILL TIME: immediate, all digi ts, B/L TEMPERTURE GRADIENT (C): normal, warm to cool, proximal to distal, B/L, B/L TROPHIC CONDITION-TEXTURE/ELASTICITY/TURGOR/HAIR GROWTH (B): normal, B/L PIGMENTATION: normal, B/L
--- OUTSIDE RECORDS SUMMARY | 2024-08-20 11:53 | XMS_ITS ---
Author Organization [facility] Address [address] [place] [address] Care Team Providers Care Squaring Machine Operator Name Role Phone Isaiah Weeks Primary Care Provider Natalia Araujo Unavailable [phone] Medications Medication SIG (Take, Route, Frequency, Duration) Notes Start Date End Date Status Cetirizine HCl Not-T aking Aspirin 81 MG 1 tablet Orally Once a day Active Omeprazole Active Fluticasone Propionate 50 MCG/ACT SPRAY 2 SPRAYS INTRANASALLY DAILY Nasal for 90 Days Active Escitalopram Oxalate 5 MG TAKE 1 TABLET BY MOUTH EVERY DAY Oral for 90 Days Active ARIPiprazole 5 MG TAKE 1 TABLET BY DORA TH EVERY DAY Oral for 90 Days Not-Taking Senna Active Gabapentin 300 MG 1 capsule Orally at bedtime Not-Taking Lexapro 10 MG 1 tablet Orally Once a day Active Abilify 10 MG 1 tablet Orally Once a day Active Encounters [facility] [address] [facility] Natalia You Plan Of Treatment Next Appt Details Provider Name:Natalia madden, 08/26/2024 09:45:00 AM, [address] [place] [address], [phone], Progress Notes * Xavier BAPTISTE JrDOB:09/1954 (69 yo M)Acc No.[id number]:05/13/2024 Progress Notes Patient:?Xavier BAPTISTE Provider:?Natalia You DPM :1955???Age:69 Y???Sex:Male Eric e:05/13/2024 Address:[address] [place] [address], [facility] [address], [place] [facility] Pcp:LIDIA Wood Subjective: * Chief Complaints: * ??? * Medical History:? * Medications:?Taking Senna , Taking Aspirin 81 MG Tablet Chewable 1 tablet Orally Once a day , Taking Omeprazole , Taking Fluticasone Propionate 50 MCG/ACT Suspension SPRAY 2 SPRAYS INTRANASALLY DAILY Nasal , Taking Escitalopram Oxalate 5 MG Tablet TAKE 1 TABLET BY MOUTH EVERY DAY Oral , Taking Lexapro 10 MG Tablet 1 tablet Orally Once a day , Taking Abilify 10 MG Tablet 1 tablet Orally Once a day , Not-Taking/PRN Cetirizine HCl , Not-Taking/PRN Gabapentin 300 MG Capsule 1 capsule Orally at bedtime , Not-Taking/PRN ARIPiprazole 5 MG Tablet TAKE 1 TABLET BY MOUTH EVERY DAY Oral Objective: * Vitals:? Assessment: Plan: * Treatment: * Images: * The named appointment provid er may or may not be the originator of this progress note, and it is not deemed complete until electronically signed by the appointment provider. Sign off status: Pending * Provider:?Natalia You DPM Date:?0 05/13/2024 Generated for Chino leary/Shoaib/Panchito on:?08/20/2024 11:52 AM EDT
== END 2024-08-20 12:27 | disposition home or self-care (01) ==
LOC: HO.HMCC 10:34
PROVIDERS: PCP Nurse Practitioner Family; Visit Provider Nurse Practitioner Family
DX: Z00.00 Encounter for general adult medical examination without abnormal findings (principal); R91.8 Other nonspecific abnormal finding of lung field; L97.919 Non-pressure chronic ulcer of unspecified part of right lower leg with unspecified severity; L97.929 Non-pressure chronic ulcer of unspecified part of left lower leg with unspecified severity; G62.9 Polyneuropathy, unspecified

== ENCOUNTER → 2024-08-20 10:34 | Outpatient (BNVA) | payer MEDICARE, SELFPAY | PROVIDERS: PCP Nurse Practitioner Family; Visit Provider Nurse Practitioner Family | DX: Z00.01 Encounter for general adult medical examination with abnormal findings (principal); L97.919 Non-pressure chronic ulcer of unspecified part of right lower leg with unspecified severity; L97.929 Non-pressure chronic ulcer of unspecified part of left lower leg with unspecified severity; R91.8 Other nonspecific abnormal finding of lung field; G62.9 Polyneuropathy, unspecified | CPT/HCPCS: 96127; 99212; 99397 ==

== ENCOUNTER 2024-09-01 15:06 | Outpatient (AMB) | payer MEDICARE, SELFPAY ==
--- NOTE | 2024-09-01 15:08 | MHC.OFFVIS ---
Vital Signs 09/01/24 15:18 Height 5 ft 9 in Weight 204 lb BMI 30.1 BP 91/56 L Blood Pressure Location Lt brachial Position Sitting Pulse 64 Pulse Oximetry (%) 96 Oxygen Delivery Method Room Air Intake Visit Reasons: 6 month follow up Intake Note: Patient follow up for Abdominal distension (gaseous) and pre EGD/Colonoscopy screening. Patient cc: abdominal pain with bloating and burping, acid reflux and diarrhea. 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 PCP send patient for CBC and CMP, I will add lipase. Patient does report upper abdominal discomfort. Continue omeprazole daily. Avoid dietary triggers and late night snacking. Staying upright for minimum 3 hours after meals discussed with patient. Patient can continue taking senna. Food intake and activity to promote better bowel motility. Patient can take probiotic daily. Also can take fiber supplements. Patient will return in 6 months discuss going for colonoscopy and possible upper endoscopy. He is agreeable to plan of care and verbalizes understanding of instructions. He was given the opportunity to ask questions and all questions answered. ? Thank you for allowing me to participate in her care Orders Orders Lipase 03/03/24 R10.9 Medications Refilled sennosides (Natural Senna Laxative) 17.2 mg (2 x 8.6 mg) PO BEDTIME 180 tabs 3RF constipation K59.00 TODAY'S VISIT Your patient is here today for follow-up and to discuss going for colonoscopy and upper endoscopy. Patient continues to have occasional abdominal bloating depending on what he eats. Reports occasional epigastric pain depending on what he eats. No issues with last colonoscopy. No problems with anesthesia in the past. Currently is taking omeprazole daily. His symptoms are suppressed for the most part. No history of sleep apnea. Not on any anticoagulation medication. [facility] Medical History Fatty liver Personal history of nicotine dependence History of pulmonary embolism (~02/2022) Tubular adenoma of colon Mass of right adrenal gland Surgical History History of colon surgery History of transurethral resection of bladder tumor (TURBT) History of hernia repair History of fusion of cervical spine History of colonoscopy History of appendectomy History of shoulder surgery History of esophagogastroduodenoscopy (EGD) History of rectal polypectomy History of surgery of head Family History Mother Dementia Father Throat cancer Social History Housing: Apartment Alcohol intake: current Alcohol intake frequency: former alcohol drinker Alcohol type: beer and wine Patient Tobacco Use Status: Former Tobacco user Tobacco use type: Cigarette Years Smoked: > 17 yrs e-Cigarette/Vaping Use: Never Used Substance Use Type: Marijuana Current occupational status: retired Cognitive needs: No Hearing needs: No Vision needs: No Review of Systems Const Denies weight gain and Denies weight loss ENT Reports no additional complaints, Denies dysphagia and Denies odynophagia Card Reports no additional complaints Resp Reports no additional complaints GI Denies abdominal pain, Denies belching, Denies melena, Reports bloating, Denies change in bowel habits, Reports constipation (Occasional), Denies dysphagia, Denies excessive flatus, Denies dyspepsia, Denies heartburn, Denies diarrhea, Denies loose stools, Denies nausea, Denies odynophagia and Denies vomiting Reports no additional complaints Musc Reports no additional complaints Neuro Reports no additional complaints Psych Reports no additional complaints Endo Reports no additional complaints Physical Exam Vital Signs: Last Vital Signs Pulse 64 09/01/24 15:18 BP 91/56 L 09/01/24 15:18 Pulse Ox 96 09/01/24 15:18 Oxygen Delivery Method Room Air 09/01/24 15:18 BMI result Body Mass Index 30.1 Const General: healthy appearing and no acute distress Nutritional Appearance: obese Orientation/consciousness: patient oriented x3 Resp Effort & Inspection: normal respiratory effort, able to speak in complete sentences, no tracheal deviation and symmetric chest movement Auscultation: clear to auscultation bilaterally Cardio Rate: regular rate GI Inspection: Yes distended and Yes obesity Palpation (GI): Soft to palpation, not firm, nontender and No hepatosplenomegaly present Auscultation: normal bowel sounds General: Yes no CVA tenderness Back/Spine/Pelvis Back: no CVA tenderness Skin General skin exam: elasticity normal, turgor normal and dry skin Neuro General: patient oriented x3 Psych Appearance: grossly normal Mental Status: mental status grossly normal Assessment & Plan Assessment & Plan (1) Tubular adenoma of colon: Comment: (TAs on 2022 scope) Code(s): D12.6 - Benign neoplasm of colon, unspecified Category: Medical (2) Fatty liver: Code(s): K76.0 - Fatty (change of) liver, not elsewhere classified Category: Medical (3) Elevated bilirubin: Code(s): R17 - Unspecified jaundice Category: Medical (4) Transaminitis: Code(s): R74.01 - Elevation of levels of liver transaminase levels (5) GERD (gastroesophageal reflux disease): Code(s): K21.9 - Gastro-esophageal reflux disease without esophagitis Qualifiers: Esophagitis presence: esophagitis presence not specified Qualified Code(s): K21.9 - Gastro-esophageal reflux disease without esophagitis (6) Postprandial epigastric pain: Code(s): R10.13 - Epigastric pain (7) Postprandial abdominal bloating: Code(s): R14.0 - Abdominal distension (gaseous) (8) Abdominal distension (gaseous): Code(s): R14.0 - Abdominal distension (gaseous) (9) Screen for colon cancer: Code(s): Z12.11 - Encounter for screening for malignant neoplasm of colon Plan Continue omeprazole. Avoid dietary triggers like does not give good discussed patient again low FODMAP diet. List of with recommended as well as list of food to avoid given to patient. Patient will be sent for colonoscopy. Tubular adenoma found on colonoscopy in August of 2022. Patient will be also sent for upper endoscopy. What to expect before during and after procedure discussed with patient. Stressed the importance of good bowel prep and clear liquid diet day before procedure. He will be seen after the procedure, sooner on as needed basis. He is agreeable to this plan and verbalizes understanding of instructions. He was given the opportunity to ask questions and all questions answered. Thank you for allowing me to participate in his care Medications: New bisacodyl (Dulcolax (bisacodyl)) take 4 tabs at noon the day before your colonoscopy 20 mg (4 x 5 mg) PO ONCE 1 day 4 tabs 0RF Z12.11 - Encounter for screening for malignant neoplasm of colon polyethylene glycol 3350 (Miralax) As directed by gastroenterology department at [facility] 238 grams PO ONCE 238 grams 0RF Z12.11 - Encounter for screening for malignant neoplasm of colon Coding Level of Care Code Est Pt Level 3 (59051) Diagnoses Tubular adenoma of colon D12.6 Fatty liver K76.0 Elevated bilirubin R17 Transaminitis R74.01 Gastroesophageal reflux disease, unspecified whether esophagitis present K21.9 Esophagitis presence: esophagitis presence not specified Postprandial epigastric pain R10.13 Postprandial abdominal bloating R14.0 Abdominal distension (gaseous) R14.0 Screen for colon cancer Z12.11 Time Spent (min) 30 Comment 20 minutes spent with patient and additional 10 minutes spent reviewing his records
--- OUTSIDE RECORDS SUMMARY | 2024-09-01 15:08 | XMS_ITS ---
Author Organization [facility] Address [address] [place] [address] Care Team Providers Care Teleservices Representative Name Role Phone Isaiah Weeks Primary Care Provider Unaaddie noah YouNatalia Unavailable [phone] Allergies Allergen (clinical drug ingredient) Drug/Non Drug Allergy documented on EMR Reaction Allergy Type Onset Date Status codeine Codeine Unknown Drug Allergy Active morphine Morphine Unknown Drug Allergy Active REASON FOR VISIT Wart(s), Foot pain Medications Medication SIG (Take, Route, Frequency, Duration) Notes Start Date End Date Status Escitalopram Oxalate 5 MG TAKE 1 TABLET BY MOUTH EVERY DAY Oral for 90 Days Active Fluticasone Propionate 50 MCG/ACT SPRAY 2 SPRAYS INTRANASALLY DAILY Nasal for 90 Days Active Abilify 10 MG 1 tablet Orally Once a day Active Lexapro 10 MG 1 tablet Orally Once a day Active Omeprazole Active Aspirin 81 MG 1 tablet Orally Once a day Active Senna Active Gabapentin 300 MG 1 capsule Orally at bedtime Not-Taking Cetirizine HCl Not-T aking ARIPiprazole 5 MG TAKE 1 TABLET BY DORA TH EVERY DAY Oral for 90 Days Not-Taking Social History Tobacco Use: Social History Observation Description Date Details (start date - stop date) Never Smoker NA - NA Alcohol Screen Question Answer Notes Did you have a drink contain ing alcohol in the past year? Yes How often did you have a dri nk containing alcohol in the past year? Monthly or less (1 point) Points 1 Interpretation Negative Tobacco use other than smoking: Question Answer Notes Are you an other tobacco user? No Tobacco Control (Standard) Question Answer Notes Tobacco use: Nonsmoker Additional Findings: Tobacco non-user Current no nsmoker Vital Signs Height 5ft 9in in 08/26/2024 Weight 200 lbs 08/26/2024 BMI 29.53 kg/m2 08/26/2024 Blood pressure systolic 133 mm Hg 08/27/19 25 Blood pressure diastolic 74 mm Hg 025 Encounters Encounter Location Date Provider Diagnosis [facility] [place] [address] [address] 08/26/2024 Natalia Avelino Plantar wart B07.0 ; Right foot pain M79.671 and Left foot pain M79.672 Assessments Encounter Date Diagnosis (ICD Code) Assessment Notes Treatment Notes Treatment Clinical Notes Section Notes 08/26/2024 Plantar wart (ICD-10 - B07.0) 08/26/2024 Right foot pain (ICD-10 - M79.671) 08/26/2024 Left foot pain (ICD-10 - M79.672) Plan Of Treatment Next Appt Details Follow Up: 4 Weeks, Reason: Provider Name:Natalia madden, 09/30/2024 09:15:00 AM, [address] [facility], [address] [facility], [place], [address], Procedure Notes * Category Sub-Category Detail Notes Wart Treatment Procedure Verrucae were de brided to pin-point bleeding margins with sterile 15 surgical blade, silver nitrate chemocautery applied, recomm. immune-boosting meds such as zinc, recomm. follow up with topical chemosurgical agents , recomm. Wartstick 40 percent Salicylic acid application under occlusion as directed Progress Notes * Xavier BAPTISTE JrDOB:09/1954 (69 yo M)Acc No.[id number]:08/26/2024 Progress Notes Patient:?Xavier BAPTISTE Provider:?Natalia You DPM :1955???Age:69 Y???Sex:Male Eric e:08/26/2024 Address:[address] [place], [place] [id number] Pcp:LIDIA Wood Subjective: * Chief Complaints: * ???Wart(s)Foot pain * HPI: ???Skin problems:?Pt States PCP Visit: ?DATE?08/18/2024 * ROS:?General/Constitutional:?Nausea?denies, denies.?Vomiting?denies, denies.?Hunger Thirst?denies, denies.?Loss appetite?denies, denies.?Chills?denies, denies.?Fatigue?denies, denies.?Fever?denies, denies.?Night Sweats denies, denies.?Unexplained weight loss?denies, denies.?Unexplained weight gain?denies, denies.?HEENTM:?Dentures?denies, denies.?Dizziness?denies, denies.?Glasses/contacts?admits, admits.?Retinopathy?denies, denies.?Blurred/double vision?denies, denies.?TMJ?denies, denies.?Discharge/drainage?denies, denies.?Implants?denies, denies.?Sore throat?denies, denies.?Dental implants?denies, denies.?Hard of hearing ?denies, denies.?Difficulty chewing/swallowing/speaking?denies, denies.?Nose bleeds?denies, denies.?Sore mouth?denies, denies.?Respiratory:?On Oxygen?denies, denies.?Pneumonia/pleurisy?denies, denies.?Bronchitis?denies, denies.?Emphysema?denies, denies.?Coughing?denies, denies.?Cough blood?denies, denies.?Shortness of breath?denies, denies.?Wheezing?denies, denies.?Cardiovascular:?Pacemaker?denies, denies.?MVP?denies, denies.?WPW?denies, denies.?CHF?denies, denies.?Heart attack?denies, denies.?Septal defect?denies, denies.?Rapid beat?denies, denies.?Chest pain ?denies, denies.?Atrial Fib.?denies, denies.?Murmur/Palpitations?denies, denies.?Gastrointestinal:?Hemorrhoids?denies, denies.?Stomach/Abdominal pain?denies, denies.?Dark blood stool?denies, denies.?Irritable bowel ?denies, denies.?Constipation?denies, denies.?Diarrhea?denies, denies.?Hematology:?Swelling?denies, denies.?Clots?denies, denies.?Varicose Veins?denies, denies.?Bruising?denies, denies.?Bleeding problem?denies, denies.?Genitourinary:?Blood urine?denies, denies.?Frequent/Painfu/urination/bladder control?denies, denies.?Kidney stones?denies, denies.?Infection (UTI)?denies, denies.?Nephropathy?denies, denies.?sex trans dis (STD)?denies, denies.?Prostate?denies, denies.?Musculoskeletal:?Hammertoes?denies, denies.?Bunions?denies, denies.?Back Pain?denies, denies.?Muscle Cramps/ Resting?denies, denies.?Muscle cramps / walking?denies, denies.?Generalized aches and pains?denies, denies.?Weakness?denies, denies.?Integ.:?Thomas?denies, denies.?Scars?denies, denies.?Corns/calluses?denies, denies.?Ingrown nails?denies, denies.?Painful nails?denies, denies.?Open Sores?denies, denies.?Rashes?denies, denies.?Neurologic:?Difficulty sleeping?denies, denies.?Brain disorder?denies, denies.?Numbness?denies, denies.?Balance trouble?denies, denies.?Confusion?denies, denies.?Fainting/blackouts?denies, denies.?Tingling?denies, denies.?Tremors?denies, denies.? * Medical History:? * Surgical History:?shoulder s urgery-right appendectomy 3 mesh hernias cervical fusion, C4, C5, C6 * Hospitalization/Major Diagno stic Procedure:?No Hospitalization History. * Family History:?Non-Contribu tory.? * Social History:?Tobacco Use:?Tobacco use other than smoking?Are you an other tobacco user??No ?Tobacco Control (Standard)?Tobacco use:?Nonsmoker ?Additional Findings: Tobacco non-user?Current nonsmoker ???Drugs/Alcohol:?Drugs?Have you used drugs other than those [...] Allergyyes[Allergies Verified] Objective: * Vitals:?Ht: 5ft 9in, Wt:200, BMI:29.53, Shoe size: 11, BP:133/74mm Hg, Ht-cm: 175.26 cm, Wt-k.72 kg. * Examination: ???Dermatologic: ?VERRUCA:?Reveals Multiple ( 2 ), multi-loculated , mosaic-patterned, round, raised, flat-topped, petechial bleeding papule(s), with cauliflower appearance and interruption of skin lines, with pain to lateral compression, and size estimated at 5 mm diameter , plantar Forefoot , B/L.? Assessment: * Assessment: 1.?Plantar wart - B07.0 ([facility])???2.?Right foot pain - M79.671???3.?Left foot pain - M79.672??? Plan: * Treatment: * Procedures:?Wart Treatment:?Procedure?Verrucae were debrided to pin-point bleeding margins with sterile 15 surgical blade, silver nitrate chemocautery applied, recomm. immune-boosting meds such as zinc, recomm. follow up with topical chemosurgical agents , recomm. Wartstick 40 percent Salicylic acid application under occlusion as directed.? * Procedure Codes:?13004 Wart Destruction, 1-14 * Follow Up:?4 Weeks * Images: * Sign off status: Completed true * Provider:?Natalia You DPM Date:?0 08/26/2024 Generated for Printi ng/Abbyg/eTransmitting on:?09/01/2024 03:08 PM EDT History and Physical Notes * HPI (History of Present Illness) Category Sub-Category Detail Notes Category Not es Skin problems Pt States PCP Visit: DATE: 08/18/2024 Examination Category Sub-Category Detail Notes Category Not es Dermatologic VERRUCA: Reveals Multiple ( 2 ), multi-loculated , mosaic-patterned, round, raised, flat-topped, petechial bleeding papule(s), with cauliflower appearance and interruption of skin lines, with pain to lateral compression, and size estimated at 5 mm diameter , plantar Forefoot , B/L
--- OUTSIDE RECORDS SUMMARY | 2024-09-01 15:08 | XMS_ITS | Patient Health Record ---
Author Organization [facility] Address [address] [place] [address] Care Team Providers Care Financial Underwriter Name Role Phone Isaiah Weeks Primary Care Provider Unav wileyable Natalia You Unavailable [phone] MayteMarguerite hill Unavailable [phone] Allergies Allergen (clinical drug ingredient) Drug/Non Drug [...] Additional Findings: Tobacco non-user Current no nsmoker Problems Problem Type SNOMED Code ICD Code Onset Dates Problem Status W/U Status Risk Notes Problem Plantar wart (24824157) Plantar wart (B07.0) Active confirmed Problem Osteoarthritis of midtarsal joint of left foot (2081129348489565 ) Osteoarthritis of midtarsal joint of left foot (M19.072) Active confirmed Vital Signs Blood pressure diastolic 74 mm Hg 08/26/2024 Height 5ft 9in in 08/26/2024 Blood pressure systolic 133 mm Hg 08/26/2024 Weight 200 lbs 08/26/2024 BMI 29.53 kg/m2 08/26/2024 Procedures Procedure Date Ordered Date Performed Result Body Sit e , B2230-WIATO/INJECT, JOINT/BURSA 03/05/2024 N/A Encounters Encounter Location Date Provider Diagnosis [address] [address] 11/23/2023 Marguerite Theodore Plantar wart B07.0 ; Osteoarthritis of midtarsal joint of left foot M19.072 ; Right foot pain M79.671 ; Left foot pain M79.672 ; Pain in left ankle and joints of left foot M25.572 ; Bursitis of left foot M77.52 ; Metatarsalgia of left foot M77.42 and Metatarsalgia, right foot M77.[address] [address] 01/22/2024 Natalia Avelino Plantar wart B07.0 ; Osteoarthritis of midtarsal joint of left foot M19.072 ; Right foot pain M79.671 ; Left foot pain M79.672 ; Pain in left ankle and joints of left foot M25.572 ; Bursitis of left foot M77.52 ; Metatarsalgia of left foot M77.42 and Metatarsalgia, right foot M77.[address] [facility] [address] 03/05/2024 Nataliaarmando You Plantar wart B07.0 ; Osteoarthritis of midtarsal joint of left foot M19.072 ; Right foot pain M79.671 ; Left foot pain M79.672 ; Pain in left ankle and joints of left foot M25.572 ; Bursitis of left foot M77.52 ; Metatarsalgia of left foot M77.42 and Peripheral neuropathic pain M79.2 [facility] [address] [address] 04/22/2024 Natalia You Plantar wart B07.0 ; Right foot pain M79.671 ; Osteoarthritis of midtarsal joint of left foot M19.072 ; Left foot pain M79.672 ; Bursitis of left foot M77.52 and Metatarsalgia of left foot M77.42 [facility] [address] [address] 08/26/2024 Natalia You Plantar wart B07.0 ; Right foot pain M79.671 and Left foot pain M79.[address] [address] 11/23/[address] [address] 11/23/[address] [address] 02/20/2024 Natalia You [address] [address] 04/10/2024 Natalia You [address] [address] 05/07/2024 Natalia You Assessments Encounter Date Diagnosis (ICD Code) Assessment Notes Treatment Notes Treatment Clinical Notes Section Notes 11/23/2023 Plantar wart (ICD-10 - B07.0) 11/23/2023 Osteoarthritis of midtarsal joint of left foot (ICD-10 - M19.072) 01/22/2024 Plantar wart (ICD-10 - B07.0) 03/05/2024 Plantar wart (ICD-10 - B07.0) 04/22/2024 Plantar wart (ICD-10 - B07.0) 08/26/2024 Plantar wart (ICD-10 - B07.0) 08/26/2024 Right foot pain (ICD-10 - M79.671) 08/26/2024 Left foot pain (ICD-10 - M79.672) 03/05/2024 Osteoarthritis of midtarsal joint of left [...] X ray : Foot, right 3V 11/23/2023 34724, P6363-LVAMW/INJECT, JOINT/BURSA 1 05/05/2023 Next Appt Details Provider Name:Natalia Curtis chano, 09/30/2024 09:15:00 AM, [facility], [facility] [address], [place], [address], Insurance Providers Payer Name Payer Address Payer Phone Subscriber Number Group Number Insured Name Patient Relationship to Insured Coverage Start Date Coverage End Date [employer] [address] [place] [phone] [id number] Xavier Baptiste Self - patient is the insured Medical (General) History Medical History History ICD Code Anxiety Arthritis asthma Cancer Depression Headaches/Migraines Psoriasis/eczema Chicken pox 114 stitches in head cecum lymph nodes appendix Surgical History Surgery Date(Month/Year) shoulder surgery-right appendectomy 3 mesh hernias cervical fusion, C4, C5, C6
--- OUTSIDE RECORDS SUMMARY | 2024-09-01 15:08 | XMS_ITS ---
Author Organization [facility] Address [address] [place] [address] Care Team Providers Care Safety Associate Name Role Phone Isaiah Weeks Primary Care Provider Unav ailNatalia Culver [phone] REASON FOR VISIT QMB Encounters Encounter Location Date Provider Diagnosis [address] [address] 05/07/2024 Natalia You Plan Of Treatment Next Appt Details Provider Name:Natalia madden, 09/30/2024 09:15:00 AM, [address] [place] [address], [address], Progress Notes * Xavier BAPTISTE JrDOB:09/1954 (69 yo M)Acc No.[id number]:05/07/2024 Patient:?Xavier BAPTISTE r :1955???Age:69 Y???Sex:Male Address:[address] [facility], [place] [address] * true * Date:? Generated for Printi ng/Fadionyg/eTransmitting on:?09/01/2024 03:08 PM EDT
--- OUTSIDE RECORDS SUMMARY | 2024-09-01 15:09 | XMS_ITS | Encounter Summary ---
Author Organization [facility] Address [address] [place] [address] Care Team Providers Care Candy Depositing Machine Operator Name Role Phone Isaiah Trevino NP Primary Care Provider + [phone] Encounter Details Date Type Department Care Team (Late st Contact Info) Description 07/25/[address] [facility] Lab [address] [facility] [place] [phone] Darren Lott MD [address] [place] [phone] Malignant neoplasm of overlapping sites of bladder ([facility]/HCC V24, CMS/HCC V28) Social History Tobacco [...] of overlapping sites of bladder (CMS/HCC V24, CMS/[facility] V28) documented in this encounter Results * Anatomic pathology outside consult (07/22/2024 12:00 AM EDT) Final Diagnosis A. Urine, Voided, ([id number]): Negative for high grade urothelial carcinoma. Scant cellularity Results of UroVysion fluorescence in situ hybridization (FISH) testing: CEP3: Normal CEP7: Normal CEP17: Normal LSI 9p21: Normal Interpretation: Normal profile Controls stained appropriately. Note: The results are intended as a screening device and should be interpreted in association with other clinical and pathological findings. 07/29/2024 4:[address] [facility] Clinical Information Malignant neoplasm of overlapping sites of bladder C67.8 Urine Cytology/FISH (now) 07/29/2024 4:[address] [facility] Gross Description A. Urine, Voided, ([id number]): Received one ThinPrep slide for cytology and one ThinPrep slide for UroVysion FISH 07/29/2024 4:[address] [facility] Disclaimer Unless otherwise specified, all tissue is 10% NB formalin fixed and paraffin embedded. Technical pathology services provided by [facility] at [address] [place] [address] [address], [place] [address] (CLIA #[id number]/Maryjo Ludwig MD, Cheesemaking Laborer) 07/29/2024 4:[address] [facility] Tissue Urine specimen from urethra / Unknown 07/22/2024 07/25/2024 2:24 PM EDT us Darren Lott MD LAB PATHOLOGY ORDERABLES Final Result [facility] [address] [place] [address], documented in this encounter Visit Diagnoses Diagnosis Malignant neoplasm of overlapping sites of bladder (CMS/HCC V24, CMS/HCC V28) documented in this encounter Care Teams Candy Depositing Machine Operator Relationship Specialty Start Date End Date Isaiah Trevino NP [address] [facility] [place] PCP - General 06/07/23 documented as of this encounter
--- OUTSIDE RECORDS SUMMARY | 2024-09-01 15:09 | XMS_ITS | Clinical Summary ---
Author Organization [facility] Address [address] [place] [address] Care Team Providers Care Shovel Log Loader Operator Name Role Phone Rico Longoria MD Primary Care Provider [phone] Allergies Active Allergy Reactions Criticality Noted Date [...] age to complete this topic Care Teams Shovel Log Loader Operator Relationship Specialty Start Date End Date Rico Longoria MD [address] [place] [address] PCP - General Internal Medicine 01/24/19
--- OUTSIDE RECORDS SUMMARY | 2024-09-01 15:09 | XMS_ITS | Clinical Summary ---
Author Organization [facility] Address [address] [place] [address] Phone Care Team Providers Care Senior Media Buyer Name Role Phone sIaiah Trevino NP Primary Care Provider Allergies Active [...] Diagnosed Date Lung nodule 07/03/2018 Overview (01/30/2024): [facility] LDCT program following Last Assessment & Plan: 68-year-old male who I have followed at [facility] for a cluster of nodules in the right middle lobe in the setting of a history of bladder cancer and appendiceal cancer/polyp. He is a non-smoker but sometimes smokes marijuana. His most recent CT scan was done at [facility] on 05/17/2023 which compared with previous CAT scans shows the cluster of nodules in the right middle lobe to be more linear now although still present. I discussed the findings on his CAT scan compared with previous with him in detail as described in the HPI. We discussed pulmonary nodules in general and how their size, shape, and microsoft exchange administrator time affect her level of suspicion for [...] 69-year-old male who I have followed at [facility] for a cluster of nodules in the right middle lobe in the setting of a history of bladder cancer and appendiceal cancer/polyp. He is a non-smoker but sometimes smokes marijuana. A CT scan was done at [facility] on 05/17/2023 which compared with previous [...] general and how their size, shape, and microsoft exchange administrator time affect her level of suspicion for [...] 07/23/2014 COPD (chronic obstructive pu lmonary disease) ([facility] V24, [facility] V28) 07/23/2014 Encounters Date Type Department Care Team Description 07/25/2024 Lab Requisition [facility] Main Lab [address] [facility] [place] [address] Darren Lott MD Malignant neoplasm of overlapping sites of bladder ([facility] V24, [facility] V28) from Last 3 Months Immunizations Name [...] 2007 PROCEDURE: HISTORICAL COLONOSCOPY; COMMENT: Chandan at [facility]; 6 polyps. COLONOSCOPY 01/25/2016 PROCEDURE: HISTORICAL COLONOSCOPY; COMMENT: 2 cm flat polyp involving the appendix; random bx: Tubulovillous adenoma and random biopsies were normal. UPPER GASTROINTESTINAL ENDOSCOPY 01/25/2016 PROCEDURE: MD UPPER GI ENDOSCOPY PERFORMED; COMMENT: Visually normal; duodenal biopsies: Suggestive of celiac disease. COLONOSCOPY 05/01/2017 PROCEDURE: HISTORICAL COLONOSCOPY; COMMENT: 7 mm sigmoid colon polyp; sessile polyp involving the appendix: sigmoid=tubular adenoma. appendix=tubulovillous. OTHER SURGICAL HISTORY 06/2017 PROCEDURE: MD COLECTOMY PARTIAL W/ANASTOMOSIS; COMMENT: for tubulovillous adenmoa OTHER SURGICAL HISTORY 10/24/2017 PROCEDURE: ---- OTHER ----; COMMENT: incisional wall hernia repair Medical History Medical History Date Comments COPD (chronic obstructive pu lmonary disease) ([facility] V24, [facility] V28) 07/23/2014 DX:COPD (chronic o bstructive pulmonary disease) ([facility]) Anxiety 07/23/2014 DX:Anxiety Left foot pain 08/26/2014 DX:Left foot ash n Bladder cancer ([facility] V24, [facility] V28) DX:Bladder cancer (HCC) History of colon [...] Malignant neoplasm of overlapping sites of bladder ([facility] V24, [facility] V28) ANNUAL BMP BLOOD TEST Routine 09/30/2022 LIPID PANEL Routine 06/19/2019 COLONOSCOPY Routine 05/01/2017 HEPATITIS C SCREENING Routine 02/28/2016 from Last 3 Months or Most Recently Relevant to Health Maintenance Results * Anatomic pathology outside consult (07/22/2024 12:00 AM EDT) Final Diagnosis A. Urine, Voided, ([id number]): Negative for high grade urothelial carcinoma. Scant cellularity Results of UroVysion fluorescence in situ hybridization (FISH) testing: CEP3: Normal CEP7: Normal CEP17: Normal LSI 9p21: Normal Interpretation: Normal profile Controls stained appropriately. Note: The results are intended as a screening device and should be interpreted in association with other clinical and pathological findings. 07/29/2024 4:34 PM EDT [facility] Clinical Information Malignant neoplasm of overlapping sites of bladder C67.8 Urine Cytology/FISH (now) 07/29/2024 4:34 PM EDT [facility] Gross Description A. Urine, Voided, ([id number]): Received one ThinPrep slide for cytology and one ThinPrep slide for UroVysion FISH 07/29/2024 4:34 PM EDT [facility] Disclaimer Unless otherwise specified, all tissue is 10% NB formalin fixed and paraffin embedded. Technical pathology services provided by [facility] at [address] [place] [address] [address], [place] [address] (CLIA #[id number]/Maryjo Ludwig MD, Ophthalmic Medical Technologist) 07/29/2024 4:34 PM EDT [facility] Tissue Urine specimen from urethra / Unknown 07/22/2024 07/25/2024 2:24 PM EDT Darren Lott MD LAB PATHOLOGY ORDERABLES Final Result [facility] [address] [place] [address], * Annual BMP Blood Test (09/30/2022) Annual BMP Blood Test Abstracted Historical Provider HEALTH MAINTENANCE Final Result * Lipid panel (06/19/2019) [facility] LDL/HDL Ratio 2 0 - 4 Triglycerides 103 0 - 150 mg/dL Cholesterol 90 0 - 200 mg/dL HDL 40 >=40 mg/dL LDL Cholesterol 30 0 - 100 mg/dL Blood Venous blood specimen / Unknown Historical Provider LAB BLOOD ORDERABLES Karen l Result * Colonoscopy (05/01/2017) [facility] Colonoscopy No interpreta tion,abstr acted Anatomical Region Laterality Modality Other Historical Provider HEALTH MAINTENANCE Final Result * Hepatitis C Screening (02/28/2016) [facility] Hepatitis C Screening Abstracted Historical Provider HEALTH MAINTENANCE Final Result from Last 3 Months or Most Recently Relevant to Health Maintenance Insurance [place]ICA[place] MEDICARE ADVANTAGE Care Teams Senior Media Buyer Relationship Specialty Start Date End Date Isaiah Trevino NP [address] [facility] [place], [place] PCP - General 06/07/23
--- OUTSIDE RECORDS SUMMARY | 2024-09-01 15:09 | XMS_ITS ---
Author Organization [facility] Address [address] [place] [address] Care Team Providers Care System Engineer Name Role Phone Isaiah Weeks Primary Care Provider Natalia Araujo Unavailable [phone] Medications Medication SIG (Take, Route, Frequency, Duration) [...] Active Encounters En[facility] [address] [facility]/13/[facility]24 Natalia You Plan Of Treatment Next Appt Details Provider Name:Natalia madden, 09/30/2024 09:15:00 AM, [address] [place] [address], [phone], Progress Notes * Xavier BAPTISTE JrDOB:09/1954 (69 yo M)Acc No.[id number]:05/13/2024 Progress Notes Patient:?Xavier BAPTISTE Provider:?Natalia You DPM :1955???Age:69 Y???Sex:Male Eric e:05/13/2024 Address:[address] [place] [address], [facility] [address], [place] Pcp:Isaiah Trevino NP-IMER Subjective: * Chief Complaints: * ??? * [...] DPM Date:?0 05/13/2024 Generated for Chino leary/Shoaib/Panchito on:?09/01/2024 03:08 PM EDT
[2024-09-01 15:18] VITALS: BP 91/56; PULSE 64; O2SAT 96; BMI 30.1
== END 2024-09-01 15:47 | disposition home or self-care (01) ==
LOC: HO.HGI 15:07
PROVIDERS: PCP Nurse Practitioner Family; Visit Provider Nurse Practitioner Family
DX: K76.0 Fatty (change of) liver, not elsewhere classified (principal); R74.01 Elevation of levels of liver transaminase levels; K21.9 Gastro-esophageal reflux disease without esophagitis; Z86.0101 Personal history of adenomatous and serrated colon polyps; R10.13 Epigastric pain; R14.0 Abdominal distension (gaseous)
CPT/HCPCS: 99213

== ENCOUNTER → 2024-09-01 15:06 | Outpatient (BNVA) | payer MEDICARE, SELFPAY | PROVIDERS: PCP Nurse Practitioner Family; Visit Provider Nurse Practitioner Family | DX: Z01.818 Encounter for other preprocedural examination (principal); K21.9 Gastro-esophageal reflux disease without esophagitis; R17 Unspecified jaundice; R14.0 Abdominal distension (gaseous); D12.6 Benign neoplasm of colon, unspecified; R74.01 Elevation of levels of liver transaminase levels; R10.13 Epigastric pain | CPT/HCPCS: 99212 ==

== ENCOUNTER 2024-09-09 09:16 | Outpatient (REF) | payer MEDICARE, SELFPAY ==
--- OUTSIDE RECORDS SUMMARY | 2024-09-09 09:51 | XMS_ITS ---
[facility] Address [address] [facility] [place] [address] Care Team Providers Care Court Clerk Name Role Phone Isaiah Weeks Primary Care Provider Unaaddie noah YouNatalia Unavailable [phone] Allergies Allergen (clinical drug ingredient) Drug/Non Drug [...] 025 Encounters Encounter Location Date Provider Diagnosis [facility] [address] [address] 08/26/2024 Antalia Avelino Plantar wart B07.0 ; Right foot [...] Provider Name:Natalia madden, 09/30/2024 09:15:00 AM, [address] [facility], [address] [facility], [place], [address], Procedure Notes * Category Sub-Category Detail Notes Wart Treatment Procedure Verrucae were de brided to pin-point bleeding margins with sterile 15 surgical blade, silver nitrate chemocautery applied, recomm. immune-boosting meds such as zinc, recomm. follow up with topical chemosurgical agents , recomm. Wartstick 40 percent Salicylic acid application under occlusion as directed Progress Notes * Xavier BAPTISTE JrDOB:09/1954 (69 yo M)Acc No.[id number]:08/26/2024 Progress Notes Patient:?Xavier BAPTISTE Provider:?Natalia You DPM :1955???Age:69 Y???Sex:Male Eric e:08/26/2024 Address:[address] [place], [place] [id number] Pcp:LIDIA Wood Subjective: * Chief Complaints: * [...] Assessment: * Assessment: 1.?Plantar wart - B07.0 ([facility])???2.?Right foot pain - M79.671???3.?Left foot pain - M79.672??? Plan: * Treatment: * Procedures:?Wart Treatment:?Procedure?Verrucae were debrided to pin-point bleeding margins with sterile 15 surgical blade, silver nitrate chemocautery applied, recomm. immune-boosting meds such as zinc, recomm. follow up with topical chemosurgical agents , recomm. Wartstick 40 percent Salicylic acid application under occlusion as directed.? * Procedure Codes:?39724 Wart Destruction, 1-14 * Follow Up:?4 Weeks * Images: * Sign off status: Completed true * Provider:?Natalia You DPM Date:?0 08/26/2024 Generated for Printi ng/Fadionyg/eTransmitting on:?09/09/2024 09:50 AM EDT History and Physical Notes * [...]
[2024-09-09 13:23] LABS: Appearance Urine Clear; Color Urine Yellow; Glucose Urine UA Negative (Negative); Leukocyte Esterase Urine Negative (Negative); Nitrite Urine Negative (Negative); Specific Gravity - Urine <= 1.005 (1.005-1.025); Urine Blood Negative (Negative); Urine Ketones Negative (Negative); Urine Protein Negative (Neg-Trace)
[2024-09-09 14:01] LABS: Basophils Absolute Auto 0.1 X10*3/uL (0.0-0.2); Eosinophils Absolute Auto 0.2 X10*3/uL (0.0-0.4); Eosinophils Percent Auto 2.3 % (0-4); Hematocrit 48.5 % (42.0-52.0); Imm Gran Abs Auto 0.04 X10*3/uL (0.00-0.03); Imm Gran Pct Auto 0.5 % (0.0-0.4); Lymphocytes Absolute Auto 2.2 X10*3/uL (1.2-4.9); MANUAL DIFF FLAG SCAN; Mean Corpuscular Hemoglobin 30.4 pg (27.0-33.0); Mean Corpuscular Volume 92.2 fL (80.0-98.0); Monocytes Absolute Auto 0.5 X10*3/uL (0.1-1.2); Monocytes Percent Auto 7.4 % (2-11); NRBC Pct Auto 0.3 /100WBC (0.0-0.2); Neutrophils Absolute Auto 4.3 x10*3/uL (2.0-8.3); Neutrophils Percent Auto 58.8 % (45-73); PLT CLUMP 1; Red Blood Count 5.26 X10*6/uL (4.60-5.80); Red Cell Distribution Width 15.2 % (11.0-16.0); SCAN SMEAR FLAG 1; White Blood Count 7.3 X10*3/uL (4.8-10.8)
[2024-09-09 14:13] LABS: Alanine Aminotransferase 85 U/L (0-40); Albumin Level 4.3 g/dL (3.5-5.0); Alkaline Phosphatase 88 U/L (39-117); Anion Gap 14 (12-20); Aspartate Amino Transferase 76 U/L (5-37); Blood Urea Nitrogen 14 mg/dL (9-16); Calcium 9.1 mg/dL (8.4-10.2); Carbon Dioxide 23 mmol/L (22-29); Chloride 108 mmol/L (96-108); Cholesterol 105 mg/dL (<200); Estimated Glomerular Filt Rate > 60; Glucose Fasting 113 mg/dL (60-99); HDL Cholesterol 51 mg/dL (>40); LDL Cholesterol Calculated 46 mg/dL (<100); Platelet Count 129 X10*3/uL (160-400); Potassium 4.7 mmol/L (3.3-5.1); Sodium 140 mmol/L (135-145); TSH reflex Free T4 1.08 uIU/mL (0.32-4.0); Triglycerides 42 mg/dL (<150)
[2024-09-09 14:15] LABS: SLIDE REVIEW VERIFIED
== END 2024-09-09 09:17 | disposition home or self-care (01) ==
LOC: HO.HMGCLDS 09:16
PROVIDERS: PCP Nurse Practitioner Family; Visit Provider Nurse Practitioner Family
DX: K76.0 Fatty (change of) liver, not elsewhere classified (principal)
CPT/HCPCS: 36415; 80053; 80061; 81003; 84443; 85025

== ENCOUNTER 2024-09-16 09:14 | Outpatient (REF) | payer MEDICARE, SELFPAY ==
--- NOTE | 2024-09-16 09:17 | EMG_ITS ---
Bilateral tibial and peroneal motor studies were performed. Bilateral superficial peroneal and sural sensory studies were performed. Tibial H reflexes were obtained and paraspinal muscles were tested with a needle. 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 MD ARIA Graff/JOE / [id number]
--- OUTSIDE RECORDS SUMMARY | 2024-09-16 10:08 | XMS_ITS | Encounter Summary ---
Author Organization [facility] Address [address] [place] [address] Care Team Providers Care Warranty Clerk Name Role Phone Rico Longoria MD Primary Care Provider Unavail able Community, Pcp Primary Care Provider Isaiah Escobedo NP Primary Care Provider Unavail able Encounter Details Date Type Department Care Team Description 07/11/2017 Tester Armature Or Fields Report Medical Records [address] [place] [address] Aurea Velez PA Social History Tobacco Use Types Packs/Day Years Used Date Smoking Tobacco: Former Cigarettes 2 36 1 - 09/14/2005 Smokeless Tobacco: Never Comments:quit smoking in 200 6 Alcohol Use Standard Drinks/Week Comments No 0 (1 standard drink = 0.6 oz pur e alcohol) Alcoholic; Quit 90 Sex Assigned at Date Recorded Not on file documented as of this encounter Plan of Treatment Not on file documented as of this encounter Visit Diagnoses Not on filedocumented in this encounter Care Teams Warranty Clerk Relationship Specialty Start Date End Date Rico Longoria MD PCP - General Internal Medicine 07/21/15 02/23/21 Daquan, Pcp PCP - General Internal Medicine 02/24/21 06/06/23 Isaiah Trevino NP PCP - General Family Practice 06/07/23 documented as of this encounter
== END 2024-09-16 09:15 | disposition home or self-care (01) ==
LOC: HO.NEURO 09:14
PROVIDERS: PCP Nurse Practitioner Family; Visit Provider Nurse Practitioner Family
DX: G62.9 Polyneuropathy, unspecified (principal); G57.93 Unspecified mononeuropathy of bilateral lower limbs
CPT/HCPCS: 95886; 95911

== ENCOUNTER → 2024-10-13 09:37 | Outpatient (REF) | payer MEDICARE, SELFPAY ==
--- OUTSIDE RECORDS SUMMARY | 2024-09-30 05:15 | XMS_ITS ---
Author Organization [facility] Address [address] [place] [address] Care Team Providers Care Cafe Aide Name Role Phone Isaiah Weeks Primary Care Provider Unav Natalia Garland Unavailable [phone] Allergies Allergen (clinical drug ingredient) Drug/Non Drug Allergy documented on EMR Reaction Allergy Type Onset Date Status codeine Codeine Unknown Drug Allergy Active morphine Morphine Unknown Drug Allergy Active Encounters Encounter Location Date Provider Diagnosis [facility] [address] [place] [place] [phone] 09/30/2024 Natalia You Plan Of Treatment Next Appt Details Provider Name:Natalia Mortonliz madden, 11/04/2024 02:00:00 PM, [address], [address], Progress Notes * Xavier BAPTISTE JrDOB:09/1954 (69 yo M)Acc No.[id number]:09/30/2024 Progress Notes Patient: Xavier PEREZ Jr Provider: Jennifer You DPM :1955 A ge:69 Y S ex:Male Date:09/30/2024 Address:[address] [place] [address], [address] [place], [place] [id number] Pcp:LIDIA Wood Subjective: * Chief Complaints: * * Medical History: A nxiety, Arthritis, Asthma, Cancer, Depression, Headaches/Migraines, Psoriasis/eczema, Chicken pox, 114 stitches in head, Cecum lymph nodes, Appendix. * Surgical History: s houlder surgery-right , appendectomy , 3 mesh hernias , cervical fusion, C4, C5, C6 . * Allergies: M orphine: Allergy, Codeine: Allergy. Objective: * Vitals: Assessment: Plan: * Treatment: * Images: * The named appointment provid er may or may not be the originator of this progress note, and it is not deemed complete until electronically signed by the appointment provider. Sign off status: Pending * Provider: Jennifer You DPM Date: 0 09/30/2024 Generated for Chino leary/Shoaib/Kathleenitting on: 10/13/2024 10:04 AM EDT
--- NOTE | 2024-10-13 09:48 | ECG_ITS ---
Test Reason : MED EXAM Blood Pressure : */* mmHG Vent. Rate : 53 BPM Atrial Rate : 53 BPM P-R Int : 142 ms QRS Dur : 88 ms QT Int : 432 ms P-R-T Axes : 63 -62 17 degrees QTcB Int : 405 ms Sinus bradycardia Left axis deviation Septal infarct , age undetermined Abnormal ECG No previous ECGs available Referred By: Isaiah Trevino Electronically Signed By: SHARON STOKES MD
== END ==
LOC: HO.CARD 09:37
PROVIDERS: PCP Nurse Practitioner Family; Visit Provider Nurse Practitioner Family
DX: Z00.01 Encounter for general adult medical examination with abnormal findings (principal)
CPT/HCPCS: 93005

== ENCOUNTER → 2024-10-13 09:48 | Outpatient (BNV) | payer MEDICARE, SELFPAY | PROVIDERS: PCP Nurse Practitioner Family; Visit Provider Internal Medicine Cardiovascular Disease | DX: R00.1 Bradycardia, unspecified (principal) | CPT/HCPCS: 93010 ==

== ENCOUNTER 2025-02-24 08:54 | Day surgery (SDC) | payer MEDICARE, SELFPAY ==
--- NOTE | 2025-02-19 10:08 | P.CONAN_ITS ---
Documented by User: Lety Dorsey NP 02/19/25 10:09 HPI - Anesthesia Eval Consult details Narrative: 70yo M for Upper Endoscopy and Colonoscopy PMF Active Problems Active Problems: All Active Problems Neuropathic pain, leg, bilateral (Acute) Encounter for routine adult physical exam with abnormal findings (Acute) Neuropathy (Acute) Bilateral leg ulcer (Acute) Lower respiratory infection (e.g., bronchitis, pneumonia, pneumonitis, pulmonitis) (Acute) Fatty liver (Acute) Foot lesion (Acute) Screening for prostate cancer (Acute) Ulcer of right leg (Acute) Venous insufficiency (Acute) Swelling of lower extremity (Acute) Anterolisthesis of cervical spine (Acute) Abnormal x-ray of cervical spine (Acute) Cervical neck pain with evidence of disc disease (Acute) History of pulmonary embolism (Acute ~02/2022) Bladder cancer (Acute ~2022) Pulmonary nodules (Acute) Personal history of nicotine dependence (Acute) Tubular adenoma of colon (Acute) Mass of right adrenal gland (Acute) Hematuria (Acute) Elevated bilirubin (Acute) Shortness of breath (Acute) Dermatitis (Acute) Past Medical History Medical History Fatty liver Personal history of nicotine dependence History of pulmonary embolism (~02/2022) Tubular adenoma of colon Mass of right adrenal gland Family History Family History Mother Dementia Father Throat cancer Family history of problems with anesthesia: No Surgical History Surgical History History of colon surgery History of transurethral resection of bladder tumor (TURBT) History of hernia repair History of fusion of cervical spine History of colonoscopy History of appendectomy History of shoulder surgery History of esophagogastroduodenoscopy (EGD) History of rectal polypectomy History of surgery of head History of Problems with Anesthesia: No Social History Social History Housing: Apartment Alcohol intake: current Alcohol intake frequency: former alcohol drinker Alcohol type: beer and wine Patient Tobacco Use Status: Former Tobacco user Tobacco use type: Cigarette Years Smoked: > 17 yrs e-Cigarette/Vaping Use: Never Used Use of substances other than those prescribed or required for medical reasons: Yes Substance Use Type: Marijuana Are you DNR?: No Advance Directives: No Advance Directives Information Provided: Yes Current occupational status: retired Cognitive needs: No Hearing needs: No Vision needs: No Meds Allergies Allergy/AdvReac Type Severity Reaction Status Date / Time codeine Allergy Severe COLD SWEATS Verified 09/01/24 15:08 morphine Allergy Severe COLD SWEATS Verified 09/01/24 15:08 perflutren AdvReac Back Pain Verified 09/01/24 15:08 Home Medications ?Medication ?Instructions ?Recorded ?Confirmed ?Last Taken ?Type aspirin 81 mg capsule 81 mg PO DAILY 07/16/2302/1402/22/25 History hydroxyzine pamoate 25 mg capsule 25 mg PO BID PRN Anx iety 08/20/24 02/20/25 Unknown History bupropion HCl 150 mg 24 hr tablet, 150 mg PO QAM 02/2002/20/25 Unknown History extended release Exam Pertinent Lab Results Pertinent Lab Results: Laboratory Tests 09/09/24 09:40 WBC 7.3 Hgb 16.0 Hct 48.5 Plt Count 129 L Sodium 140 Potassium 4.7 Chloride 108 Carbon Dioxide 23 BUN 14 Creatinine 1.00 Assessment and Plan Assessment Anesthesia Assessment: Chart Reviewed Final Anesthetic Review Family History of Problems with Anesthesia: No History of Problems with Anesthesia: No Documented by User: Faheem Suazo MD 02/24/25 10:02 [facility] Past Medical History Medical History Fatty liver Personal history of nicotine dependence History of pulmonary embolism (~02/2022) Tubular adenoma of colon Mass of right adrenal gland Family History Family History Mother Dementia Father Throat cancer Surgical History Surgical History History of colon surgery History of transurethral resection of bladder tumor (TURBT) History of hernia repair History of fusion of cervical spine History of colonoscopy History of appendectomy History of shoulder surgery History of esophagogastroduodenoscopy (EGD) History of rectal polypectomy History of surgery of head Social History Social History Housing: Apartment Alcohol intake: current Alcohol intake frequency: former alcohol drinker Alcohol type: beer and wine Patient Tobacco Use Status: Former Tobacco user Tobacco use type: Cigarette Years Smoked: > 17 yrs e-Cigarette/Vaping Use: Never Used Use of substances other than those prescribed or required for medical reasons: Yes Substance Use Type: Marijuana Are you DNR?: No Advance Directives: No Advance Directives Information Provided: Yes Current occupational status: retired Cognitive needs: No Hearing needs: No Vision needs: No Meds Allergies Allergy/AdvReac Type Severity Reaction Status Date / Time codeine Allergy Severe COLD SWEATS Verified 09/01/24 15:08 morphine Allergy Severe COLD SWEATS Verified 09/01/24 15:08 perflutren AdvReac Back Pain Verified 09/01/24 15:08 Home Medications ?Medication ?Instructions ?Recorded ?Confirmed ?Last Taken ?Type aspirin 81 mg capsule 81 mg PO DAILY 07/16/2302/1402/22/25 History hydroxyzine pamoate 25 mg capsule 25 mg PO BID PRN Anx iety 08/20/24 02/20/25 Unknown History bupropion HCl 150 mg 24 hr tablet, 150 mg PO QAM 02/2002/20/25 Unknown History extended release Exam Exam Date and Time: 02/24/2025 Airway Mallampati Class: II TM Dist: >3cm Neck ROM: Full Denture: Upper and Lower Heart: rrr Lungs: ctab vesicular Assessment and Plan Assessment Anesthesia Assessment: Anesthesia Plan Discussed Final Anesthetic Review NPO: Yes ASA Class: II Final Preanesthetic Review: No Changes in Pt Med Stat, Meds/Allgs Chart Reviewed, Consent Obtained/Reviewed and Anes Risks/Benef Reviewed Patient Risk: Low Procedure Risk: Low Anesthetic Plan Anesthetic Plan: MAC: Disposition: Standard PACU
[2025-02-20 13:55] VITALS: BMI 30.1
[2025-02-24 09:32] VITALS: BMI 27.2
[2025-02-24 09:39] VITALS: BP 147/79; PULSE 62; RESP 16; TEMP 36.6; O2SAT 97
[2025-02-24] MEDS: Lactated Ringers 1,000 ML 100 ML IVCONT (09:56)
--- NOTE | 2025-02-24 10:10 | MHC.SHP ---
Pre-Procedural Eval Section A - 24 Hr Update-Section A only Date of Service: 02/24/25 Section B - Complete if H&P > 30 days Chief Complaint: gerd,benign neoplasm of colon Relevant Family History (Specify if Yes): No Relevant Social History: None Present Medications: see Short Stay Collaborative assessment Medical History: Significant History (Fatty liver Personal history of nicotine dependence History of pulmonary embolism (~02/2022) Tubular adenoma of colon Mass of right adrenal gland) History of Previous Operations: Relevant previous surgery/procedure and date(s) (History of colon surgery History of transurethral resection of bladder tumor (TURBT) History of hernia repair History of fusion of cervical spine History of colonoscopy History of appendectomy History of shoulder surgery History of esophagogastroduodenoscopy (EGD) History of rectal polypectomy Histo) Allergies: Allergies Allergy/AdvReac Type Severity Reaction Status Date / Time codeine Allergy Severe COLD SWEATS Verified 09/01/24 15:08 morphine Allergy Severe COLD SWEATS Verified 09/01/24 15:08 perflutren AdvReac Back Pain Verified 09/01/24 15:08 Review of Systems Sugical H&P ROS: Negative: Constitution, Cardiovascular, Respiratory, Neurological, Psychiatric, Hem-Onc, Allergic/Immunologic, Gastrointestinal, Genitourinary, Musculoskeletal, Integumentary, Endocrine and Eyes/Ears/Nose/Throat Exam Surgical H&P Exam: Normal: HEENT, Normal: Heart, Normal: Lungs, Normal: Extremities, Normal: Abdomen, Normal: Skin and Normal: Neurological Plan Diagnosis/Plan: Unchanged I have reviewed the history and physical and performed a pertinent physical examination on my patient. No changes have occurred unless specified. Time Spent With Patient Time: Total time managing care of this patient today ____ minutes.
--- NOTE | 2025-02-24 10:51 | P.OPN-COLO_ITS ---
Colonoscopy Operative Note Operative Note Date of Service: 02/24/25 Narrative: Operative Information Procedure Description: EGD, Colonoscopy Indication: GERD, hx of colon polyps Anesthesia: MAC FLEXIBLE TRANSORAL UPPER GASTROINTESTINAL ENDOSCOPY AND COLONOSCOPY PROCEDURE NOTE UPPER ENDOSCOPY Consent: Indications for the procedure and potential complications of bleeding, perforation, reaction to medications and missed diagnosis were discussed with the patient and informed consent was obtained. Instrument: Olympus GIF H 190 J mid size upper endoscope Monitoring: Vital signs and clinical assessment, continuous EKG monitoring, Pulse oximetry, Carbon Dioxide monitoring and blood pressure monitoring were done throughout the procedure. Procedure: The patient was placed in the left lateral decubitis position and pre-procedure medications were administered and a bite block was placed. The endoscope was inserted into the mouth and advanced under direct vision to the third part of duodenum. A careful inspection was made as the upper endoscope was withdrawn including a retroflexed examination of the proximal stomach; Findings and interventions are described below. Findings: Larynx:normal Esophagus: GE junction at 40 cm, diaphragm hiatus at 40 cm, mild esophagitis with small variceal cords seen, grade I Stomach: patchy erythema and mosaic pattern consistent with portal hypertensive gastropathy. Biopsies were obtained. Grade 2 flap valve on retroflexed examination of the cardia. Duodenum: bulbar duodenitis, bx taken Intervention: Biopsies as noted above, COLONOSCOPY Instrument: Olympus variable stiffness pediatric scope 190L Colonoscopy Monitoring: Vital signs and clinical assessment, continuous EKG monitoring, Pulse oximetry, Carbon Dioxide monitoring and blood pressure monitoring were done throughout the procedure. Colon withdrawal time was 14 minutes. Procedure: The patient was placed in the left lateral decubitis position and pre-procedure medications were administered. After a digital rectal examination of the ano-rectum, the video colonoscope was inserted into the rectum and advanced through the colon to the cecum/TI. The colonoscope was slowly withdrawn in a retrograde panoramic fashion and the colon mucosa was carefully examined including a retroflexed view of the rectum. Findings and interventions are described below. Procedure Difficulty:moderate Findings: ileo cecal anastomosis noted, Ascending Colon: 6-8 mm sessile polyp removed with cold snare Transverse Colon -normal Descending Colon: x 2 sessile polyps 6-8 mm removed with cold snare, x 2 sessile polyps lifted with eleview, 8-9 mm and removed with cold snare Sigmoid Colon: x1 sessile polyp, 4-6 mm removed with cold forceps Rectum: Retroflexion with small internal hemorrhoids, grade I, x 2 sessile polyps 4-6 mm removed with cold forceps Anorectum - normal Colon preparation: [place] Bowel Preparation Scale Right colon; 1-2 Transverse colon: 2 Left colon; 2 (0 = Unprepared colon segment with mucosa not seen due to solid stool that cannot be cleared. 1 = Portion of mucosa of the colon segment seen, but other areas of the colon segment not well seen due to staining, residual stool and/or opaque liquid. 2 = Minor amount of residual staining, small fragments of stool and/or opaque liquid, but mucosa of colon segment seen well. 3 = Entire mucosa of colon segment seen well with no residual staining, small fragments of stool or opaque liquid) Impression and Post Procedure Diagnosis: Endoscopy Findings: portal hypertensive gastropathy small varices esophagitis Colonoscopy Findings: colon polyps x 8 internal hemorrhoids Plan: Await Pathology results Repeat Colonoscopy in 1 year or earlier if clinically indicated High fiber diet leaflet avoid straining at stool, epsom salts and sitz bath, anusol supps or cream repeat egd in 1-2 yr for variceal screening, consider repeat US or fibrosure to check for early cirrhosis Above findings were reviewed with the patient and relevant handouts were provided if indicated.
[2025-02-24 10:56] VITALS: BP 106/76; PULSE 73; RESP 16; TEMP 36.3; O2SAT 96
[2025-02-24 11:10] VITALS: BP 122/86; PULSE 58; RESP 16; O2SAT 94
[2025-02-24 11:15] VITALS: BP 119/78; PULSE 54; RESP 16; O2SAT 94
[2025-02-24 11:30] VITALS: BP 128/84; PULSE 77; RESP 16; O2SAT 97
== END 2025-02-24 12:32 | disposition home or self-care (01) ==
PROVIDERS: PCP Nurse Practitioner Family; Visit Provider Internal Medicine Gastroenterology
PROC: (CPT 45380; principal; 2025-02-24 12:00)
DX: Z12.11 Encounter for screening for malignant neoplasm of colon (principal); Z86.0101 Personal history of adenomatous and serrated colon polyps; R13.10 Dysphagia, unspecified; R14.0 Abdominal distension (gaseous); K64.0 First degree hemorrhoids; I85.00 Esophageal varices without bleeding; D12.7 Benign neoplasm of rectosigmoid junction; D12.2 Benign neoplasm of ascending colon; D12.4 Benign neoplasm of descending colon; D12.5 Benign neoplasm of sigmoid colon
CPT/HCPCS: 45380; 45385; 43239; 88305; 88313; 88342; J2003; J2704

== ENCOUNTER → 2025-02-24 08:54 | Outpatient (BNV) | payer MEDICARE, SELFPAY | PROVIDERS: PCP Nurse Practitioner Family; Visit Provider Internal Medicine Gastroenterology | DX: Z12.11 Encounter for screening for malignant neoplasm of colon (principal); D12.2 Benign neoplasm of ascending colon; D12.4 Benign neoplasm of descending colon; D12.5 Benign neoplasm of sigmoid colon; D12.8 Benign neoplasm of rectum; K64.0 First degree hemorrhoids; K21.00 Gastro-esophageal reflux disease with esophagitis, without bleeding; I85.00 Esophageal varices without bleeding; K76.6 Portal hypertension; K31.89 Other diseases of stomach and duodenum | CPT/HCPCS: 43239; 45380; 45385 ==

== ENCOUNTER 2025-03-17 08:49 | Outpatient (AMB) | payer MEDICARE, SELFPAY ==
--- OUTSIDE RECORDS SUMMARY | 2025-03-17 08:59 | XMS_ITS | Clinical Summary ---
Author Organization [facility] Address [address] [place] [address] Phone Care Team Providers Care Revit Drafter Name Role Phone Isaiah Trevino NP Primary Care Provider + Darren Lott MD Unavailable [phone] Dashawn Car MD, MPH Unavailable [phone] Tatyana Mullen MD Unavailable [phone] Allergies Active Allergy Reactions Criticality Noted Date Comments Codeine Nausea and/or Vomiting 10/09/2022 Morphine Nausea and/or Vomiti ng,Nausea And Vomiting 03/30/2017 Medications cyclobenzaprine (FLEXERIL) 10 MG tablet TAKE 1 TABLET BY MOUTH EVERY DAY AT BEDTIME NEEDED MUSCLE SPASM 10/06/2022 Active betamethasone, augmented, (DIPROLENE AF) 0.05 % cream APPLY TO ITCHY SPOTS TWICE A DAY. 10/06/2022 Active ketorolac (TORADOL) 10 mg tablet Take 10 mg by mouth every 8 (eight) hours as needed. 10/07/2022 Active fluticasone propionate (FLONASE ALLERGY RELIEF) 50 mcg/actuation nasal spray 50 mcg by Nasal route. 03/13/2022 Active lidocaine (LIDODERM) 5 % Place 1 patch onto the skin daily. Remove & Discard patch within 12 hours or as directed by MD Active Social History Tobacco Use Types Packs/Day Years Used Date Smoking Tobacco: Never Assessed Child or Family Care Answer Date Record ed Do you have problems with on e of the following making it difficult for you to work, study, or receive health care? No 10/09/2022 Education Answer Date Recorded Are you interested in more education? Not on laurie e 08/12/2022 Are you concerned about learning? Not on file 08/12/2022 No 08/12/2022 No 08/12/2022 Food Answer Date Recorded Within the past 6 months we worried whether our food would run out before we got money to buy more. Often True 10/09/2022 Within the past 6 months the food we bought just didn't last and we didn't have enough money to get more. Often True Residential Stability Answer Date Recor ded What is your housing situation today? I have yovany henderson 10/09/2022 How many times have you moved in the past 12 suns? One time 10/09/2022 Paying for Meds Answer Date Recorded Do you have trouble paying for medicines? No 10/09/2022 Paying Utility Bills Answer Date Record ed Do you have trouble paying your heating or elect ricity bill? No 10/09/2022 Transportation Answer Date Recorded Has the lack of transportati on kept you from medical appointments or from getting medications? No 10/09/2022 Digital Access Answer Date Recorded No 09/12/2022 No 09/12/2022 Reliable internet access at home? Not on file 09/12/2022 Device with a working camera? Not on file Sex and Gender Information Value Date Recorded Sex Assigned at Male 08/02/2022 1:55 PM EDT Legal Sex Male 1:40 PM EDT Gender Identity Male 08/02/2022 1:40 PM EDT Sexual Orientation Straight 08/02/2022 1: 55 PM EDT Last Filed Vital Signs Vital Sign Reading Time Taken Comments Blood Pressure 152/83 11/07/2022 10:38 AM EDT Pulse 55 11/07/2022 10:38 AM EDT Temperature 35.9 C (96.7 F) 10/09/2022 12:34 PM EDT Respiratory Rate 18 10/09/2022 12:34 PM EDT Oxygen Saturation 100% 10/09/2022 12:34 PM EDT Inhaled Oxygen Concentration - - Weight 93.2 kg (205 lb 7.5 oz) 10/09/2022 12:34 PM EDT Height 176.2 cm (5' 9.37 ) 09/30/2022 12:03 PM E DT Body Mass Index 30.02 09/30/2022 12:03 PM EDT Plan of Treatment Health Maintenance Due Date Last Done Comments LIPID PANEL 1955 DEPRESSION SCREENING 1967 SMOKING Hx and SMOKELESS TOBACCO SCREENING 01/20/1968 HEPATITIS C SCREENING 1973 COLOGUARD 01/20/2000 COLONOSCOPY 01/20/2000 COLORECTAL CANCER SCREENING 01/20/2000 FIT TEST 01/20/2000 FOBT 01/20/2000 SIGMOIDOSCOPY 01/20/2000 VIRTUAL COLONOSCOPY 01/20/2000 ZOSTER VACCINES (1 of 2) 2005 PNEUMOCOCCAL VACCINES (50+ years) (2 of 2 - PCV) 08/27/2015 08/26/2014 INFLUENZA VACCINE (#1) 2024 COVID-19 VACCINE (3 - 2024-2 6 season) 2024 07/30/2020, 07/02/2020 Adult Td,Tdap Booster 11/26/2029 11/27/2019 , 08/26/2014 RSV VACCINE (1 - 1-dose 75+ series) 2030 HEPATITIS A VACCINES Aged Out No long er eligible based on patient's age to complete this topic HIB VACCINES Aged Out No longer eligi ble based on patient's age to complete this topic MENINGOCOCCAL VACCINES (ACWY) Aged Out No longer eligible based on patient's age to complete this topic MENINGOCOCCAL VACCINES (B) Aged Out N o longer eligible based on patient's age to complete this topic Medical Devices Not on file Insurance [facility] MEDICARE REPLACEMENT [place] [id number] [facility] SAFETY NET FULL [facility] MEDICARE REPLACEMENT [place] [id number] [facility] SAFETY [facility] FULL [facility] MEDICARE REPLACEMENT [place] [id number] [facility] SAFETY NET FULL [facility] MEDICARE REPLACEMENT [place] [id number] [facility] SAFETY [facility] FULL [facility] MEDICARE REPLACEMENT [facility] SAFETY NET FULL [facility] MEDICARE REPLACEMENT [place] [id number] [facility] FULL Care Teams Revit Drafter Relationship Specialty Start Date End Date Isaiah Trevino NP [address] [facility] [place] [address] PCP - General Nurse Practitioner 08/02/22 Darren Lott MD [address] [place] [phone] [email or web address] 08/02/22 Dashawn Car MD, MPH [address] [place] [id number] [email or web address] 08/02/22 Tatyana Mullen MD [address] [place] [phone] [email or web address] Oncology 08/18/22 Additional Source Comments The information contained in this document represents components of the legal health record. It is not the complete legal health record.[facility]
--- OUTSIDE RECORDS SUMMARY | 2025-03-17 08:59 | XMS_ITS | Encounter Summary ---
Author Organization [facility] [place] [address] Care Team Providers Care Commercial Credit Specialist Name Role Phone Isaiah Trevino NP Primary Care Provider + [phone] Encounter Details Date Type Department Care Team (Late st Contact Info) Description 07/25/[address] [facility] - Main Lab [address] [facility] [place] [phone] Darren Lott MD [address] [place] [phone] Malignant neoplasm of overlapping sites of bladder ([facility]/HCC V24, CMS/HCC V28) Social History Tobacco Use [...] of overlapping sites of bladder (CMS/HCC V24, CMS/[facility] V28) documented in this encounter Results * Anatomic pathology outside consult (07/22/2024 12:00 AM EDT) Final Diagnosis A. Urine, Voided, ([id number]): Negative for high grade urothelial carcinoma. Scant cellularity Results of UroVysion fluorescence in situ hybridization (FISH) testing: CEP3: Normal CEP7: Normal CEP17: Normal LSI 9p21: Normal Interpretation: Normal profile Controls stained appropriately. Note: The results are intended as a screening device and should be interpreted in association with other clinical and pathological findings. 07/29/2024 4:34 PM EDT [facility] at 1634 EDT Clinical Information Malignant neoplasm of overlapping sites of bladder C67.8 Urine Cytology/FISH (now) 07/29/2024 4:34 PM EDT [facility] Gross Description A. Urine, Voided, ([id number]): Received one ThinPrep slide for cytology and one ThinPrep slide for UroVysion FISH 07/29/2024 4:34 PM EDT [facility] Disclaimer Unless otherwise specified, all tissue is 10% NB formalin fixed and paraffin embedded. Technical pathology services provided by [facility] at [address] [place] [address] [address], [place] [address] (CLIA #[id number]/Maryjo Ludwig MD, Sheriff Sergeant) 07/29/2024 4:34 PM EDT [facility] Tissue Urine specimen from urethra / Unknown 07/22/2024 07/25/2024 2:24 PM EDT us Darren Lott MD LAB PATHOLOGY ORDERABLES Final Result [facility] [address] [place] [address], documented in this encounter Visit Diagnoses Diagnosis Malignant neoplasm of overlapping sites of bladder (CMS/HCC V24, CMS/HCC V28) documented in this encounter Care Teams Commercial Credit Specialist Relationship Specialty Start Date End Date Isaiah Trevino NP [address] [facility] [place] PCP - General 06/07/23 documented as of this encounter
--- OUTSIDE RECORDS SUMMARY | 2025-03-17 08:59 | XMS_ITS | Clinical Summary ---
Author Organization [facility] Address [address] [place] [address] Phone Care Team Providers Care Credit Card Associate Name Role Phone Isaiah Trevino NP Primary [...] Diagnosed Date Lung nodule 07/03/2018 Overview (01/30/2024): [facility] LDCT program following Last Assessment & Plan: 68-year-old male who I have followed at [facility] for a cluster of nodules in the right middle lobe in the setting of a history of bladder cancer and appendiceal cancer/polyp. He is a non-smoker but sometimes smokes marijuana. His most recent CT scan was done at [facility] on 05/17/2023 which compared with previous CAT scans shows the cluster of nodules in the right middle lobe to be more linear now although still present. I discussed the findings on his CAT scan compared with previous with him in detail as described in the HPI. We discussed pulmonary nodules in general and how their size, shape, and change management consultant time affect her level of suspicion for [...] 69-year-old male who I have followed at [facility] for a cluster of nodules in the right middle lobe in the setting of a history of bladder cancer and appendiceal cancer/polyp. He is a non-smoker but sometimes smokes marijuana. A CT scan was done at [facility] on 05/17/2023 which compared with previous [...] general and how their size, shape, and change management consultant time affect her level of suspicion for [...] 07/23/2014 COPD (chronic obstructive pu lmonary disease) ([facility] V24, [facility] V28) 07/23/2014 Immunizations Immunization Administration Dates Next Due Pneumococcal polysaccharide 23 valent (Pneumovax 23) 2yo and older 08/26/2014 Tdap Tetanus diptheria acell ular pertussis (Boostrix; Adacel) 7yo and older 08/26/2014 Surgical History Surgery Date Site/Laterality Comments NECK SURGERY PROCEDURE: HISTORICAL NECK SURGERY; COMMENT: cervical fusion SHOULDER SURGERY Right PROCEDURE: HISTORICAL SHOULDER SURGERY HERNIA REPAIR PROCEDURE: HISTORICAL HERNIA REPAIR/UMB COLONOSCOPY 2007 PROCEDURE: HISTORICAL COLONOSCOPY; COM[place] [facility] 6 polyps. COLONOSCOPY 01/25/2016 PROCEDURE: HISTORICAL COLONOSCOPY; COMMENT: 2 cm flat polyp involving the appendix; random bx: Tubulovillous adenoma and random biopsies were normal. UPPER GASTROINTESTINAL ENDOSCOPY 01/25/2016 PROCEDURE: SD UPPER GI ENDOSCOPY PERFORMED; COMMENT: Visually normal; duodenal biopsies: Suggestive of celiac disease. COLONOSCOPY 05/01/2017 PROCEDURE: HISTORICAL COLONOSCOPY; COMMENT: 7 mm sigmoid colon polyp; sessile polyp involving the appendix: sigmoid=tubular adenoma. appendix=tubulovillous. OTHER SURGICAL HISTORY 06/2017 PROCEDURE: SD COLECTOMY PARTIAL W/ANASTOMOSIS; COMMENT: for tubulovillous adenmoa OTHER SURGICAL HISTORY 10/24/2017 PROCEDURE: ---- OTHER ----; COMMENT: incisional wall hernia repair Medical History Medical History Date Comments COPD (chronic obstructive pu lmonary disease) ([facility] V24, [facility] V28) 07/23/2014 DX:COPD (chronic o bstructive pulmonary disease) ([facility]) Anxiety 07/23/2014 DX:Anxiety Left foot pain 08/26/2014 DX:Left foot ash n Bladder cancer ([facility] V24, [facility] V28) DX:Bladder cancer ([facility]) History of colon cancer DX:Histo ry of [...] 60 03/20/2024 3:17 PM EST Temperature 37.1 C (98.8 F) 03/20/2024 3:17 PM EST Respiratory Rate 18 03/20/2024 3:17 PM EST [...] RSV Immunization Adult Patients (1 - Risk 50-74 years 1-dose series) 2005 Pneumococcal Vaccine: 50+ Years (2 of 2 - PCV) 08/27/2015 08/26/2014 COVID-19 Vaccine (3 - Modern a risk series) 08/27/2020 07/30/2020, 07/02/2020 Abdominal Aortic Aneurysm (AAA) Screen 03/15/2022 Falls Risk Assessment 03/15/2022 Medicare Annual Wellness Visit 03/15/2022 Social Influencers of Health Screening 03/15/2022 Hypertension/CHF/CAD Annual BMP Blood Test 02/22/2024 09/30/2022 Depression Screening 04/16/2024 Cholesterol Screening (Lipid Panel) 06/18/2024 06/19/2019 Influenza Vaccine (#1) 2024 Colorectal Cancer Screening: Colonoscopy 05/01/2027 05/01/2017 [...] Procedure Name Priority Date/Time Associated Diagnosis Comments ANNUAL BMP BLOOD TEST Routine 09/30/2022 LIPID PANEL Routine 06/19/2019 COLONOSCOPY Routine 05/01/2017 HEPATITIS C SCREENING Routine 02/28/2016 from Last 3 Months or Most Recently Relevant to Health Maintenance Results * Annual BMP Blood Test (09/30/2022) Pathologist [facility] Annual BMP Blood Test Abstracted Historical Provider HEALTH MAINTENANCE Final Result * Lipid panel (06/19/2019) Pathologist [facility] LDL/HDL Ratio 2 0 - 4 Triglycerides 103 0 - 150 mg/dL Cholesterol 90 0 - 200 mg/dL HDL 40 >=40 mg/dL LDL Cholesterol 30 0 - 100 mg/dL Blood Venous blood specimen / Unknown Historical Provider LAB BLOOD ORDERABLES Karen l Result * Colonoscopy (05/01/2017) Colonoscopy No interpreta tion,abstr acted Anatomical Region Laterality Modality Other Historical Provider HEALTH MAINTENANCE Final Result * Hepatitis C Screening (02/28/2016) Hepatitis C Screening Abstracted Historical Provider HEALTH MAINTENANCE Final Result from Last 3 Months or Most Recently Relevant to Health Maintenance Insurance [place]ICA[place] [employer] MEDICARE ADVANTAGE Care Teams Credit Card Associate Relationship Specialty Start Date End Date Isaiah Trevino NP [address] [place], [place] PCP - General 06/07/23
--- OUTSIDE RECORDS SUMMARY | 2025-03-17 08:59 | XMS_ITS | Clinical Summary ---
Author Organization [facility] Address [address] [place] [address] Care Team Providers Care Rocket Scientist Name Role Phone Rico Longoria MD Primary Care Provider [phone] Allergies Active Allergy Reactions Criticality Noted Date [...] (2 of 2 - PCV) 01/20/2020 08/26/2014 DTap / Tdap / Td (2 - Td or Tdap) 08/26/2024 015 Influenza Vaccine (#1) 2024 RSV Adult > 60+ Yrs or Pregn ant (1 - 1-dose 75+ series) 2030 Hepatitis B Vaccines Aged Out No long er eligible based on patient's age to complete this topic RSV Ped < 20 months Aged Out No longe r eligible based on patient's age to complete this topic Care Teams Rocket Scientist Relationship Specialty Start Date End Date Rico Longoria MD [address] [place] [phone] PCP - General Internal Medicine 01/24/19
--- OUTSIDE RECORDS SUMMARY | 2025-03-17 08:59 | XMS_ITS | Encounter Summary ---
Author Organization [facility] Address [address] [place] [address] Phone Care Team Providers Care Sales Planning Coordinator Name Role Phone Isaiah Trevino NP Primary Care Provider + Darren Lott MD Unavailable [phone] Dashawn Car MD, MPH Unavailable [phone] Tatyana Mullen MD Unavailable [phone] Encounter Details Date Type Department Care Team (Late st Contact Info) Description 09/20/2022 Procedure Pass [facility] [address] [place] [address] Social History Tobacco Use Types Packs/Day Years Used Date Smoking Tobacco: Never Assessed Education Answer Date Recorded Are you interested in more education? Not on laurie e 08/12/2022 Are you concerned about learning? Not on file 08/12/2022 No 08/12/2022 No 08/12/2022 Digital Access Answer Date Recorded No 09/12/2022 No 09/12/2022 Reliable internet access at home? Not on file 09/12/2022 Device with a working camera? Not on file Sex and Gender Information Value Date Recorded Sex Assigned at Male 08/02/2022 1:55 PM EDT Legal Sex Male 1:40 PM EDT Gender Identity Male 08/02/2022 1:40 PM EDT Sexual Orientation Straight 08/02/2022 1: 55 PM EDT documented as of this encounter Plan of Treatment Not on file documented as of this encounter Visit Diagnoses Not on filedocumented in this encounter Care Teams Sales Planning Coordinator Relationship Specialty Start Date End Date Isaiah Trevino NP [address] [place] [address] PCP - General Nurse Practitioner 08/02/22 Darren Lott MD [address] [facility] [address] [place] [address] [email or web address] 08/02/22 Dashawn Car MD, MPH [address] [place] [phone] [email or web address] 08/02/22 Tatyana Mullen MD [address] [place] [id number] [email or web address] Oncology 08/18/22 documented as of this encounter Additional Source Comments The information contained in this document represents components of the legal health record. It is not the complete legal health record.[facility]
--- OUTSIDE RECORDS SUMMARY | 2025-03-17 08:59 | XMS_ITS | Encounter Summary ---
Author Organization [facility] Address [address] [facility] [address] [place] [address] Phone Care Team Providers Care Director Occupational Name Role Phone Isaiah Trevino NP Primary Care Provider + Darren Lott MD Unavailable [phone] Dashawn Car MD, MPH Unavailable [phone] Tatyana Mullen MD Unavailable [phone] Encounter Details Date Type Department Care Team (Late st Contact Info) Description 09/20/[address] [facility], [place] [address] [place] [address] Social History Tobacco Use Types Packs/Day Years [...] on filedocumented in this encounter Care Teams Director Occupational Relationship Specialty Start Date End Date Isaiah Trevino NP [address] [facility] [place] [address] PCP - General Nurse Practitioner 08/02/22 Darren Lott MD [address] [facility] [address] [place] [address] [email or web address] 08/02/22 Dashawn Car MD, MPH [address] [place] [address] [email or web address] 08/02/22 Tatyana Mullen MD [address] [place] [phone] [email or web address] Oncology 08/18/22 documented as of this encounter Additional Source Comments The information contained in this document represents components of the legal health record. It is not the complete legal health record.[facility]
--- NOTE | 2025-03-17 09:00 | MHC.OFFVIS ---
Vital Signs 03/17/25 09:06 Height 5 ft 10 in Weight 185 lb BMI 26.5 BP 130/76 Blood Pressure Location Rt brachial Position Sitting Pulse 58 Pulse Source Pulse Oximeter Pulse Oximetry (%) 98 Oxygen Delivery Method Room Air Intake Visit Reasons: s/p double Intake Note: Est pt for mgmt of GERD + CIC. S/P Procedure. CC: C/O excessive gas despite current therapies. Pt states that he is taking currently rx'd therapies w/o complication. GERD + Constipation are improved, despite the persistence of gas. House Cleaner Supervisor Required: No Accompanied by: Spouse Allergies codeine Allergy (Severe, Verified 03/17/25 09:03) COLD SWEATS morphine Allergy (Severe, Verified 03/17/25 09:03) COLD SWEATS perflutren Adverse Reaction (Verified 03/17/25 09:03) Back Pain HPI HPI s/p double: Details: LAST VISIT: Tubular adenoma of colon Fatty liver Elevated bilirubin Transaminitis GERD (gastroesophageal reflux disease) Postprandial epigastric pain Postprandial abdominal bloating Abdominal distension (gaseous) Screen for colon cancer Plan Continue omeprazole. Avoid dietary triggers like does not give good discussed patient again low FODMAP diet. List of with recommended as well as list of food to avoid given to patient. Patient will be sent for colonoscopy. Tubular adenoma found on colonoscopy in August of 2022. Patient will be also sent for upper endoscopy. What to expect before during and after procedure discussed with patient. Stressed the importance of good bowel prep and clear liquid diet day before procedure. He will be seen after the procedure, sooner on as needed basis. He is agreeable to this plan and verbalizes understanding of instructions. He was given the opportunity to ask questions and all questions answered. ? Thank you for allowing me to participate in his care New bisacodyl (Dulcolax (bisacodyl)) take 4 tabs at noon the day before your colonoscopy 20 mg (4 x 5 mg) PO ONCE 1 day 4 tabs 0RF Z12.11 polyethylene glycol 3350 (Miralax) As directed by gastroenterology department at [facility] 238 grams PO ONCE 238 grams 0RF Z12.11 Findings: Larynx:normal Esophagus: GE junction at 40 cm, diaphragm hiatus at 40 cm, mild esophagitis with small variceal cords seen, grade I Stomach: patchy erythema and mosaic pattern consistent with portal hypertensive gastropathy. Biopsies were obtained. Grade 2 flap valve on retroflexed examination of the cardia. Duodenum: bulbar duodenitis, bx taken Intervention: Biopsies as noted above, COLONOSCOPY Instrument: Olympus variable stiffness pediatric scope 190L Colonoscopy Monitoring: Vital signs and clinical assessment, continuous EKG monitoring, Pulse oximetry, Carbon Dioxide monitoring and blood pressure monitoring were done throughout the procedure. Colon withdrawal time was 14 minutes. Procedure: The patient was placed in the left lateral decubitis position and pre-procedure medications were administered. After a digital rectal examination of the ano-rectum, the video colonoscope was inserted into the rectum and advanced through the colon to the cecum/TI. The colonoscope was slowly withdrawn in a retrograde panoramic fashion and the colon mucosa was carefully examined including a retroflexed view of the rectum. Findings and interventions are described below. Procedure Difficulty:moderate Findings: ileo cecal anastomosis noted, Ascending Colon: 6-8 mm sessile polyp removed with cold snare Transverse Colon -normal Descending Colon: x 2 sessile polyps 6-8 mm removed with cold snare, x 2 sessile polyps lifted with eleview, 8-9 mm and removed with cold snare Sigmoid Colon: x1 sessile polyp, 4-6 mm removed with cold forceps Rectum: Retroflexion with small internal hemorrhoids, grade I, x 2 sessile polyps 4-6 mm removed with cold forceps Anorectum - normal Colon preparation: Woodward Bowel Preparation Scale Right colon; 1-2 Transverse colon: 2 Left colon; 2 (0 = Unprepared colon segment with mucosa not seen due to solid stool that cannot be cleared. 1 = Portion of mucosa of the colon segment seen, but other areas of the colon segment not well seen due to staining, residual stool and/or opaque liquid. 2 = Minor amount of residual staining, small fragments of stool and/or opaque liquid, but mucosa of colon segment seen well. 3 = Entire mucosa of colon segment seen well with no residual staining, small fragments of stool or opaque liquid) Impression and Post Procedure Diagnosis: Endoscopy Findings: portal hypertensive gastropathy small varices esophagitis Colonoscopy Findings: colon polyps x 8 internal hemorrhoids Plan: Await Pathology results Repeat Colonoscopy in 1 year or earlier if clinically indicated High fiber diet leaflet avoid straining at stool, epsom salts and sitz bath, anusol supps or cream repeat egd in 1-2 yr for variceal screening, consider repeat US or fibrosure to check for early cirrhosis PATHOLOGY: Diagnosis A. Esophagus, biopsy: Duodenal mucosa within normal limits. B. Stomach, biopsy: Oxyntic mucosa within normal limits; no Helicobacter organisms seen. C. Colon, ascending, polypectomies: - Tubular adenoma; negative for high-grade dysplasia or carcinoma. - Small fragments of colonic mucosa within normal limits. D. Colon, descending, polypectomies: Fragments of tubular adenomata; negative for high-grade dysplasia or carcinoma. E. Colon, sigmoid, polypectomy: Fragments of tubular adenoma; negative for high-grade dysplasia or carcinoma. F. Rectum, polypectomy: Tubular adenoma; negative for high-grade dysplasia or carcinoma. Comment: The specimen in part A arrived in the lab labeled, esophagus. Sampling from the duodenum per the procedure note is noted. TODAY'S VISIT Patient is here today for follow-up and to discuss upper endoscopy and colonoscopy results. Patient denies any ill effects from the prep anesthesia or procedure itself. Patient reports to be feeling fairly well. Patient reports that he is taking omeprazole daily and his symptoms of acid reflux are suppressed. Patient denies dyspepsia, dysphagia or odynophagia. Denies melena, hematochezia, unintentional weight loss or ribbon like stools. Patient reports occasional abdominal bloating. Patient reports that he is eating better and trying to avoid dietary triggers. Patient lost weight because of that. He is no longer drinking alcohol. [facility] Medical History (Updated 03/29/25 @ 17:33 by Cahndrika Man UNLEAVENED DOUGH MIXER-) Esophageal varices determined by endoscopy Fatty liver Personal history of nicotine dependence History of pulmonary embolism (~02/2022) Tubular adenoma of colon Mass of right adrenal gland Surgical History History of colon surgery History of transurethral resection of bladder tumor (TURBT) History of hernia repair History of fusion of cervical spine History of colonoscopy History of appendectomy History of shoulder surgery History of esophagogastroduodenoscopy (EGD) History of rectal polypectomy History of surgery of head Family History Mother Dementia Father Throat cancer Social History Housing: Apartment Alcohol intake: current Alcohol intake frequency: former alcohol drinker Alcohol type: beer and wine Patient Tobacco Use Status: Former Tobacco user Tobacco use type: Cigarette Years Smoked: > 17 yrs e-Cigarette/Vaping Use: Never Used Substance Use Type: Marijuana Current occupational status: retired Cognitive needs: No Hearing needs: No Vision needs: No Review of Systems Const Denies weight gain and Denies weight loss ENT Reports no additional complaints, Denies dysphagia and Denies odynophagia Card Reports no additional complaints Resp Reports no additional complaints GI Denies abdominal pain, Denies belching, Denies melena, Reports bloating, Denies change in bowel habits, Reports constipation (Occasional), Denies dysphagia, Denies excessive flatus, Denies dyspepsia, Denies heartburn, Denies diarrhea, Denies loose stools, Denies nausea, Denies odynophagia and Denies vomiting Reports no additional complaints Musc Reports no additional complaints Neuro Reports no additional complaints Psych Reports no additional complaints Endo Reports no additional complaints Physical Exam Vital Signs: Last Vital Signs Pulse 58 03/17/25 09:06 BP 130/76 03/17/25 09:06 Pulse Ox 98 03/17/25 09:06 Oxygen Delivery Method Room Air 03/17/25 09:06 BMI result Body Mass Index 26.5 Const General: healthy appearing and no acute distress Orientation/consciousness: patient oriented x3 Resp Effort & Inspection: normal respiratory effort, able to speak in complete sentences, no tracheal deviation and symmetric chest movement Auscultation: clear to auscultation bilaterally Cardio Rate: regular rate GI Inspection: Yes distended Palpation (GI): Soft to palpation, not firm, nontender and No hepatosplenomegaly present Auscultation: normal bowel sounds General: Yes no CVA tenderness Back/Spine/Pelvis Back: no CVA tenderness Skin General skin exam: elasticity normal, turgor normal and dry skin Neuro General: patient oriented x3 Psych Appearance: grossly normal Mental Status: mental status grossly normal Results Reviewed Results Reviewed: Laboratory Tests 09/09/24 09:40 Plt Count 129 L AST 76 H ALT 85 H Alkaline Phosphatase 88 FIB:4 4.47?points Advanced fibrosis (METAVIR stage F3-F4) likely (Boris 2017) Approximate fibrosis stage: Alla 4-6 (Donald et al 2006) Assessment & Plan Assessment & Plan (1) Tubular adenoma of colon: Code(s): D12.6 - Benign neoplasm of colon, unspecified Category: Medical (2) Fatty liver: Code(s): K76.0 - Fatty (change of) liver, not elsewhere classified Category: Medical (3) Elevated bilirubin: Code(s): R17 - Unspecified jaundice Category: Medical (4) Gastroesophageal reflux disease: Code(s): K21.9 - Gastro-esophageal reflux disease without esophagitis Qualifiers: Esophagitis presence: without esophagitis Qualified Code(s): K21.9 - Gastro-esophageal reflux disease without esophagitis (5) Postprandial abdominal bloating: Code(s): R14.0 - Abdominal distension (gaseous) (6) Esophageal varices determined by endoscopy: Code(s): I85.00 - Esophageal varices without bleeding Category: Medical Plan Will check liver panel, liver fibrosis panel and will send patient for ultrasound with elastography. He was encouraged to eat high-protein diet, avoid fat, salt and carbs. Continue PPI therapy with omeprazole. Continue senna as needed for constipation. Patient will have colonoscopy in 1 year due to suboptimal prep and upper endoscopy in 1-2 years to check varices. Patient will return in our office in 6 months. He was encouraged to call if he will have any GI concerning symptoms. Patient is agreeable to current plan of care and verbalizes understanding of instructions. He was given the opportunity to ask questions and all questions answered. Thank you for allowing me to participate in his care Orders: Orders Liver Fibrosis Pnl 03/17/25 K76.0 - Fatty (change of) liver, not elsewhere classified Liver Panel 03/17/25 R74.01 - Elevation of levels of liver transaminase levels US abdomen john w elastography 03/17/25 K76.0 - Fatty (change of) liver, not elsewhere classified Coding Level of Care Code Est Pt Level 4 (33434) Add On Problem Visit Only Diagnoses Tubular adenoma of colon D12.6 Fatty liver K76.0 Elevated bilirubin R17 Gastroesophageal reflux disease without esophagitis K21.9 Esophagitis presence: without esophagitis Postprandial abdominal bloating R14.0 Esophageal varices determined by endoscopy I85.00 Time Spent (min) 40 Comment 25 minutes spent with patient and additional 15 minutes spent reviewing his records
[2025-03-17 09:06] VITALS: BP 130/76; PULSE 58; O2SAT 98; BMI 26.5
== END 2025-03-17 09:41 | disposition home or self-care (01) ==
LOC: HO.HGI 08:49
PROVIDERS: PCP Nurse Practitioner Family; Visit Provider Nurse Practitioner Family
DX: I85.00 Esophageal varices without bleeding (principal); K63.5 Polyp of colon; K76.0 Fatty (change of) liver, not elsewhere classified; K21.9 Gastro-esophageal reflux disease without esophagitis; R14.0 Abdominal distension (gaseous)
CPT/HCPCS: 99214; G2211

== ENCOUNTER 2025-03-17 08:49 | Outpatient (REF) | payer MEDICARE, SELFPAY ==
--- OUTSIDE RECORDS SUMMARY | 2025-03-17 10:49 | XMS_ITS | Encounter Summary ---
Author Organization [facility] Address [address] [place] [address] Care Team Providers Care Railroad Track Mechanic Name Role Phone Community, Pcp Primary Care Provider Isaiah Escobedo NP Primary Care Provider Unavail able Encounter Details Date Type Department Care Team Description 05/17/2023 Orders Only [facility] Thoracic Surgery [place] [address] [facility] [address] [place] [phone] Cirilo Mcmahon MD [address] [address] Social History Tobacco Use Types Packs/Day Years Used Date Smoking Tobacco: Some Days Cigarettes 2 36 Started: 1966; Last attempted to quit: 09/14/2005 Smokeless Tobacco: Never Comments:quit smoking in 200 6 occasional marijuana Alcohol Use Standard Drinks/Week Comments No 0 (1 standard drink = 0.6 oz pur e alcohol) Alcoholic; Quit 89 Sex Assigned at Date Recorded Not on file documented as of this encounter Plan of Treatment Not on file documented as of this encounter Procedures Procedure Name Priority Date/Time Associated Diagnosis Comments CAT SCAN OF CHEST NO CONTRAST Routine 05/17/2023 documented in this encounter Results * CAT SCAN OF CHEST NO CONTRAST (05/17/2023) Cirilo Mcmahon MD CT SCANS [address] documented in this encounter Visit Diagnoses Not on filedocumented in this encounter Care Teams Railroad Track Mechanic Relationship Specialty Start Date End Date Community, Pcp PCP - General Internal Medicine 02/24/21 06/06/23 Isaiah Trevino NP PCP - General Family Practice 06/07/23 documented as of this encounter
--- OUTSIDE RECORDS SUMMARY | 2025-03-17 10:49 | XMS_ITS | Encounter Summary ---
Author Organization [facility] Address [address] [place] [address] Care Team Providers Care Nursing Home Admissions Director Name Role Phone Rico Longoria MD Primary Care Provider Unavail able Count Includes [facility], Pcp Primary Care Provider UnavailIsaiah Nava NP Primary Care Provider Unavail able Reason for Visit * Reason Onset Date Comments Special Procedure 09/16/2020 Encounter Details Date Type Department Care Team Description 09/16/2020 Telephone Gastroenterology - [place] [address] [facility] [address] [place] [address] Earl Lester MD Special Procedure Social History Tobacco Use Types Packs/Day Years [...] on file documented as of this encounter Miscellaneous Notes * Telephone Encounter - Shanti Mullen - 09/16/2020 11:26 AM EDT Left message to schedule 3 year repeat colonoscopy with any provider- history of colon polyps documented in this encounter Plan of Treatment Not on file documented as of this encounter Visit Diagnoses Not on filedocumented in this encounter Care Teams Nursing Home Admissions Director Relationship Specialty Start Date End Date Rico Longoria MD PCP - General Internal Medicine 07/21/15 02/23/21 Count Includes [facility], Pcp PCP - General Internal Medicine 02/24/21 06/06/23 Isaiah Trevino NP PCP - General Family Practice 06/07/23 documented as of this encounter
--- OUTSIDE RECORDS SUMMARY | 2025-03-17 10:49 | XMS_ITS | Encounter Summary ---
Author Organization [facility] Address [address] [place] [address] Care Team Providers Care Supervisor Unloading Name Role Phone Rico Longoria MD Primary Care Provider Unavail able [facility], Pcp Primary Care Provider UnavailIsaiah Nava NP Primary Care Provider Unavail able Reason for Visit * Reason Onset Date Comments APPOINTMENT 08/23/2016 6 month f/u Encounter Details Date Type Department Care Team Description 08/23/2016 Telephone Gastroenterology - [address] [address] Earl Lester MD APPOINTMENT (6 month f/u ) Social History Tobacco Use Types Packs/Day Years [...] encounter Miscellaneous Notes * Telephone Encounter - Mignon Blanca - 08/23/2016 6:49 PM EDT Three attempts have been made to contact patient in order to fulfill the requested for 6 month follow up for patient, unfortunately patient has not responded to any of our attempts, for this reason patient will be taken off our wait list and no more attempts will be made by the GI department at this time. FYI to GI provider. documented in this encounter Plan of Treatment Not on file documented as of this encounter Visit Diagnoses Not on filedocumented in this encounter Care Teams Supervisor Unloading Relationship Specialty Start Date End Date Rico Longoria MD PCP - General Internal Medicine 07/21/15 02/23/21 [facility], Pcp PCP - General Internal Medicine 02/24/21 06/06/23 Isaiah Trevino NP PCP - General Family Practice 06/07/23 documented as of this encounter
--- OUTSIDE RECORDS SUMMARY | 2025-03-17 10:49 | XMS_ITS | Encounter Summary ---
Author Organization [facility] Address [address] [place] [address] Care Team Providers Care Materials Research Engineer Name Role Phone Rico Longoria MD Primary Care Provider Unavail able [facility], Pcp Primary Care Provider Unavaileverton e Isaiah Trevino NP Primary Care Provider Unavail able Encounter Details Date Type Department Care Team Description 02/17/2019 Release of Information Medical Records [address] [place] [id number] Abstract, Provider Social History Tobacco Use Types Packs/Day Years [...] on filedocumented in this encounter Care Teams Materials Research Engineer Relationship Specialty Start Date End Date Rico Longoria MD PCP - General Internal Medicine 07/21/15 02/23/21 [facility], Pcp PCP - General Internal Medicine 02/24/21 06/06/23 Isaiah Trevino NP PCP - General Family Practice 06/07/23 documented as of this encounter
--- OUTSIDE RECORDS SUMMARY | 2025-03-17 10:49 | XMS_ITS | Encounter Summary ---
Author Organization [facility] Address [address] [place] [address] Care Team Providers Care Apprentice Name Role Phone Community, Pcp Primary Care Provider Isaiah Escobedo NP Primary Care Provider Unavail able Encounter Details Date Type Department Care Team Description 12/08/2022 Foreign Diplomat Report Thoracic Surgery - [place] [address] [place] [address] Cirilo Mcmahon MD [address] [address] Social History Tobacco Use Types Packs/Day Years [...] on filedocumented in this encounter Care Teams Apprentice Relationship Specialty Start Date End Date Community, Pcp PCP - General Internal Medicine 02/24/21 06/06/23 Isaiah Trevino NP PCP - General Family Practice 06/07/23 documented as of this encounter
--- OUTSIDE RECORDS SUMMARY | 2025-03-17 10:49 | XMS_ITS | Encounter Summary ---
Author Organization [facility] Address [address] [place] [address] Care Team Providers Care Environmental Safety Specialist Name Role Phone Rico Longoria MD Primary Care Provider Unavail able [facility], Pcp Primary Care Provider UnavailIsaiah Nava NP Primary Care Provider Unavail able Reason for Visit * Reason Onset Date Comments Pain, Post Operative 07/18/2017 Encounter Details Date Type Department Care Team Description 07/18/2017 Telephone General Surgery - [place] [address] [address] Michi Britt MD [address] [address] Pain, Post Operative Social History Tobacco Use Types Packs/Day Years [...] encounter Miscellaneous Notes * Telephone Encounter - Sandra Carl M.A. - 07/18/2017 1:49 PM EDT Appt made with to see PT * Telephone Encounter - Zenia Omar - 07/18/2017 1:46 PM EDT Patient states his surgical area is sensitive and red and also looks infected He had rt colectomy 07/02/17 documented in this encounter Plan of Treatment Not on file documented as of this encounter Visit Diagnoses Not on filedocumented in this encounter Care Teams Environmental Safety Specialist Relationship Specialty Start Date End Date Rico Longoria MD PCP - General Internal Medicine 07/21/15 02/23/21 [facility], Pcp PCP - General Internal Medicine 02/24/21 06/06/23 Isaiah Trevino NP PCP - General Family Practice 06/07/23 documented as of this encounter
--- OUTSIDE RECORDS SUMMARY | 2025-03-17 10:49 | XMS_ITS | Encounter Summary ---
Author Organization [facility] Address [address] [place] [address] Care Team Providers Care Box Attacher Name Role Phone Rico Longoria MD Primary Care Provider Unavail able [facility], Pcp Primary Care Provider UnavailIsaiah Nava NP Primary Care Provider Unavail able Reason for Visit * Reason Onset Date Comments TEST RESULTS 01/24/2019 Encounter Details Date Type Department Care Team Description 01/24/2019 Telephone Adult Medicine [facility] [address] [place] [address] Rico Longoria MD TEST RESULTS Social History Tobacco Use Types Packs/Day Years [...] encounter Miscellaneous Notes * Telephone Encounter - Lucho Escalante PA-C - 01/24/2019 1:50 PM EDT I reviewed results with him yesterday. Does he have additional questions? I also spoke with orthopedics and they will be scheduling an appointment in the near future. Please ask how he was doing in regards to his pain level as we can send him a stronger medication. * Telephone Encounter - Cary Chan M.A. - 01/24/2019 1:33 PM EDT Results of MRI in EMR, please advise * Telephone Encounter - Ngozi Epstein - 01/24/2019 12:12 PM EDT Inform patient: ANY URGENT OR ABNORMAL RESULTS WIILL RESULT IN A CALL BACK TO THE PATIENT FINESSE. Type of test: :imaging Date test was performed: 01/23/19 Where was the test performed: [email or web address] Who ordered this test?: BRIAN Almeida Is the doctor here today?: YES Can the message wait until the doctor returns?: NO IF PATIENT'S PCP IS NOT IN INSTRUCT PATIENT THAT THEY WILL RECEIVE A CALL BACK WHEN THE PCP IS IN THE OFFICE NEXT. documented in this encounter Plan of Treatment Not on file documented as of this encounter Visit Diagnoses Not on filedocumented in this encounter Care Teams Box Attacher Relationship Specialty Start Date End Date Rico Longoria MD PCP - General Internal Medicine 07/21/15 02/23/21 [facility], Pcp PCP - General Internal Medicine 02/24/21 06/06/23 Isaiah Trevino NP PCP - General Family Practice 06/07/23 documented as of this encounter
--- OUTSIDE RECORDS SUMMARY | 2025-03-17 10:49 | XMS_ITS | Encounter Summary ---
Author Organization [facility] Address [address] [place] [address] Care Team Providers Care Process Assistant Name Role Phone Rico Longoria MD Primary Care Provider Unavail able [facility], Pcp Primary Care Provider Isaiah Escobedo NP Primary Care Provider Unavail able Encounter Details Date Type Department Care Team Description 11/14/2019 Road Contractor Report Medical Records [address] [place] [address] [facility] [address] [place] [address] Social History Tobacco Use Types Packs/Day Years [...] on filedocumented in this encounter Care Teams Process Assistant Relationship Specialty Start Date End Date Rico Longoria MD PCP - General Internal Medicine 07/21/15 02/23/21 [facility], Pcp PCP - General Internal Medicine 02/24/21 06/06/23 Isaiah Trevino NP PCP - General Family Practice 06/07/23 documented as of this encounter
--- OUTSIDE RECORDS SUMMARY | 2025-03-17 10:49 | XMS_ITS | Encounter Summary ---
Author Organization [facility] Address [address] [place] [address] Care Team Providers Care Engineering Secretary Name Role Phone Rico Longoria MD Primary Care Provider Unavail able [facility], Pcp Primary Care Provider Unavaileverton e Isaiah Trevino NP Primary Care Provider Unavail able Encounter Details Date Type Department Care Team Description 02/29/2016 [facility] Medical Records [address] [place] [address] Abstract, Provider Social History Tobacco Use Types [...] on filedocumented in this encounter Care Teams Engineering Secretary Relationship Specialty Start Date End Date Rico Longoria MD PCP - General Internal Medicine 07/21/15 02/23/21 [facility], Pcp PCP - General Internal Medicine 02/24/21 06/06/23 Isaiah Trevino NP PCP - General Family Practice 06/07/23 documented as of this encounter
--- OUTSIDE RECORDS SUMMARY | 2025-03-17 10:49 | XMS_ITS | Clinical Summary ---
Author Organization 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 0 Active aripiprazole (ABILIFY) 2 MG tablet Take 5 mg by mouth daily. 0 Active naproxen (NAPROSYN) 500 MG tablet Take 1 Tab by mouth 2 times daily as needed for Pain. 60 Tab 0 09/30/2019 Active fluticasone 50 MCG/ACT nasal spray SPRAY 2 SPRAYS INTO EACH NOSTRIL EVERY DAY 2 Bottle 0 10/26/2020 Active augmented betamethasone dipropionate (DIPROLENE-AF) 0.05 % cream APPLY TO ITCHY SPOTS TWICE A DAY. 0 10/06/2022 Active gabapentin (NEURONTIN) 300 MG capsule 0 05/22/2023 Active Aspirin 81 MG Cap Take by mouth. 0 Act aung Active Problems Problem Noted Date History of bladder cancer 05/25/2023 History of colon cancer 05/25/2023 Lung nodule 07/03/2018 Overview: [facility] LDCT program following Last Assessment & Plan: 68-year-old male who I have followed at [facility] for a cluster of nodules in the right middle lobe in the setting of a history of bladder cancer and appendiceal cancer/polyp. He is a non-smoker but sometimes smokes marijuana. His most recent CT scan was done at [facility] on 05/17/2023 which compared with previous CAT scans shows the cluster of nodules in the right middle lobe to be more linear now although still present. I discussed the findings on his CAT scan compared with previous with him in detail as described in the HPI. 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 Options we discussed were for continued observation versus needle biopsy versus surgical wedge resection possible lobectomy. Discussing the risks and benefits of these options he decided on continued observation which will be a 6-month follow-up CT scan of the chest and a visit with me after that. 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; surgery 07/01 Steatohepatitis 12/29/2015 Nephrolithiasis 10/03/2015 COPD (chronic obstructive pulmonary dise ase) 07/23/2014 Anxiety 07/23/2014 Resolved Problems Problem Noted Date Resolved Date Colon polyp 12/29/2015 12/28/2016 Elevated liver function tests 09/08/2015 Left foot pain 08/26/2014 09/08/2015 Hepatitis C antibody test positive 08/26/2014 11/30/2015 Overview: VL negative Immunizations Name Administration Dates Next Due Pneumoccoccal(Adult) Polysaccharide PPSV23 08/26 Tdap 08/26/2014 Family History Medical History Relation Name Comments Cancer of the Lung Father Throat Cancer Father Dementia Mother Ulcerative Colitis Mother lupus Sister Relation Name Status Comments Father Mother Sister Social History Tobacco Use Types Packs/Day Years Used Date Smoking Tobacco: Former Cigarettes 2 38 1 968 - 2006 Passive Smoke Exposure: Past Smokeless Tobacco: Never Tobacco Cessation:Ready to Q uit: Not Asked; Counseling Given: Not Answered Comments:quit smoking in 2005 occasional marijuana Alcohol Use Standard Drinks/Week Comments No 0 (1 standard drink = 0.6 oz pur e alcohol) Alcoholic; Quit 89 Sex Assigned at Date Recorded Not on file Last Filed Vital Signs Vital Sign Reading Time Taken Comments Blood Pressure 132/88 05/24/2023 2:02 PM EST Pulse 64 05/24/2023 2:02 PM EST Temperature 36.9 C (98.4 F) 05/24/2023 2:02 PM EST Respiratory Rate 19 05/24/2023 2:02 PM EST Oxygen Saturation 97% 05/24/2023 2:02 PM EST Inhaled Oxygen Concentration - - Weight 97.1 kg (214 lb) 05/24/2023 2:02 PM EST Height 177.8 cm (5' 10 ) 05/24/2023 2:02 PM EST Body Mass Index 30.71 05/24/2023 2:02 PM EST Plan of Treatment Health Maintenance Due Date Last Done Comments SHINGLES VACCINE (1 of 2) 2005 PNEUMOCOCCAL VACCINE (2 - PCV) 01/20/2020 08/26/2014 COLON CANCER SCREENING 05/01/2020 8, 05/01/2017, 01/25/2016, Additional history exists BMI CHECK/ADVISE 04/16/2024 06/19/2019, , 05/29/2018 (Completed), Additional history exists DEPRESSION SCREENING/FOLLOWUP 04/16/2024, 06/19/2019, 06/19/2019, Additional history exists Lung Cancer Screening (Low D ose CT) 05/17/2024 05/17/2023, 11/13/2019, 07/02/2018, Additional history exists CHOLESTEROL SCREENING 06/18/2024 06/19/2019 , 06/03/2018, 10/23/2014 Covid-19 Vaccine (2022-2 4 season) 2024 07/30/2020, 07/02/2020 INFLUENZA (#1) 2024 06/19/2019 (Refu sed), 03/30/2017 (Refused), 02/28/2016 (Refused) DTAP/TDAP/TD (3 - Td or Tdap) 11/26/2029 11/27/2019, 08/26/2014 HEPATITIS C SCREENING Completed 02/28/2016 Insurance Payer Benefit Plan / Group Subscriber ID Effective Dates Phone Address Type [facility] PPO $0 [id number] 2023-Pres ent [address] [place] [phone] PPO Fee-for- Service [employer] A[employer] PPO F [id number] % [id number] 2023-Pres ent [address] [place] [id number] PPO Fee-for- Service Care Teams Hand Loom Weaver Relationship Specialty Start Date End Date Isaiah Trevino NP PCP - General Family Practice 06/07/23
[2025-03-17 10:54] LABS: Alanine Aminotransferase 97 U/L (0-40); Albumin Level 4.5 g/dL (3.5-5.0); Alkaline Phosphatase 96 U/L (39-117); Aspartate Amino Transferase 70 U/L (5-37); Total Protein 6.8 g/dL (6.5-8.0)
[2025-03-22 19:43] LABS: FIB-ALT 71 U/L (9-46); FIB-Alpha-2-Macroglobulin 323 mg/dL (106-279); FIB-Apolipoprotein A1 160 mg/dL (94-176); FIB-GGT 85 U/L (3-70); FIB-Haptoglobin 65 mg/dL (43-212); FIB-Total Bilirubin 0.8 mg/dL (0.2-1.2); Liver Fibrosis Score 0.79; Liver Fibrosis Stage F4; Nec Inflam Act Grade A2-A3; Nec Inflam Act Score 0.61
== END 2025-03-17 08:50 | disposition home or self-care (01) ==
LOC: HO.LAB 08:49
PROVIDERS: PCP Nurse Practitioner Family; Visit Provider Nurse Practitioner Family
DX: R74.01 Elevation of levels of liver transaminase levels (principal); K76.0 Fatty (change of) liver, not elsewhere classified
CPT/HCPCS: 36415; 80076; 81596